=== PATIENT | female | born 1935 | race Caucasian/White ===

== ENCOUNTER 2018-06-14 11:50 | Observation (INO) | payer OTHER ==
--- NOTE | 2018-06-14 11:58 | PDOC ---
History of Present Illness - General History Source: Patient, Care Provider Exam Limitations: No Limitations - History of Present Illness Initial Comments: Pt, with PMH of DM, HTN, HLD, CADx2 stent placement, and CKD, presents after a fall to her R arm. Pt states she was walking in the kitchen when she tripped over her slippers and fell with her R arm in flexion against a chair. She was on the floor for 40 minutes before her son found her and called EMS. She has a home health travel ot who is present from 10am - 2pm only. She denies any headache, chest pain, or SOB before the fall. She denies any LOC or memory loss, and her aide states her behavior has been normal. She usually has baseline SOB, but can usually walk around the home without her home O2. She uses 3L O2 at home during rest. She has also had a productive cough x2 months, which has been treated with a short term of antibiotics but has not resolved. She denies any recent fevers/chills, chest pain, palpitations , urinary symptoms, nausea/vomiting, diarrhea, or increased leg swelling. 06/14/18 12:54 <Marilu Cadet - Last Filed: 06/14/18 21:31> <Doug Erickson - Last Filed: 06/17/18 15:12> - General Stated Complaint: FALL Time Seen by Provider: 06/14/18 11:58 Past History - Travel Traveled outside of the country in the last 30 days: No Close contact w/someone who was outside of country & ill: No - Past Medical History Anemia: Yes Cardiac Disorders: Yes Diabetes: Yes Dialysis: No HTN: Yes Hypercholesterolemia: Yes Psychiatric Problems: Yes (ANXIETY.) - Surgical History Cardiac Surgery: Yes (BYPASS, STENT.) - Immunization History Immunization Up to Date: Yes - Suicide/Smoking/Psychosocial Hx Smoking History: Former smoker ([id number] yrs, quit 30yrs ago) Have you smoked in the past 12 months: No Number of Cigarettes Smoked Daily: 26 If you are a former smoker, when did you quit?: 1984 Hx Alcohol Use: Yes Drug/Substance Use Hx: No Substance Use Type: None Hx Substance Use Treatment: No <Marilu Cadet - Last Filed: 06/14/18 21:31> <Doug Erickson - Last Filed: 06/17/18 15:12> - Past Medical History Allergies/Adverse Reactions: Allergies Allergy/AdvReac Type Severity Reaction Status Date / Time amoxicillin [Amoxicillin] AdvReac Verified 06/14/18 12:24 Home Medications: Ambulatory Orders Acetaminophen [Tylenol .Regular Strength -] 650 mg PO Q6H PRN #0 tablet Albuterol Sulfate Inhaler - [Ventolin HFA Inhaler -] 1 - 2 inh PO QID PRN Amlodipine Besylate 10 mg PO DAILY 06/14/18 Cholecalciferol (Vitamin D3) [Vitamin D -] 50,000 unit PO DAILY 06/14/18 Clopidogrel Bisulfate [Plavix] 75 mg PO DAILY 06/14/18 Famotidine [Pepcid] 40 mg PO DAILY 06/14/18 Fluticasone Propionate 9.9 ml NS ASDIR 06/14/18 Fluticasone/Salmeterol [Advair Hfa 115-21 Mcg Inhaler] 1 inh PO ASDIR 06/14/18 Furosemide [Lasix] 40 mg PO DAILY 06/14/18 Glipizide 5 mg PO DAILY 06/14/18 Linaclotide [Linzess] 145 mcg PO DAILY 06/14/18 Mesalamine 1.2 gm PO DAILY 06/14/18 Mesalamine [Lialda] 1.2 gm PO ASDIR 06/14/18 Metformin HCl 850 mg PO ASDIR 06/14/18 Metoprolol Succinate 50 mg PO DAILY 06/14/18 Rosuvastatin [Crestor -] 10 mg PO DAILY 06/14/18 Rivaroxaban [Xarelto -] 15 mg PO DAILY@1800 #30 tablet 06/16/18 oxyCODONE HCL [Roxicodone -] 5 mg PO Q4H PRN #30 tablet MDD 30mg 06/16/18 Review of Systems - Review of Systems Able to Perform ROS?: Yes Is the patient limited Taiwanese proficient: No Constitutional: Yes: Weight Stable. No: Chills, Diaphoresis, Fever, Night Sweats HEENTM: No: Recent change in vision, Double Vision, Hearing Loss, Difficulty Swallowing Respiratory: Yes: Cough, Shortness of Breath, SOB with Exertion, Productive cough. No: Orthopnea, SOB at Rest, Hemoptysis Cardiac (ROS): No: Chest Pain, Edema, Irregular Heart Rate, Lightheadedness, Palpitations, Syncope, Chest Tightness ABD/GI: No: Constipated, Diarrhea, Nausea, Poor Appetite, Poor Fluid Intake, Vomiting : No: Burning, Dysuria, Frequency, Hematuria, Incontinence, Pain, Urgency Musculoskeletal: Yes: Joint Pain (R arm pain since fall). No: Back Pain Integumentary: No: Bruising, Rash Neurological: No: Headache, Numbness, Unsteady Gait, Dizziness Psychiatric: No: Change in Appetite Endocrine: No: Increased Urine, Change in Weight Hematologic/Lymphatic: No: Anemia, Blood Clots All Other Systems: Reviewed and Negative <HelioMarilu - Last Filed: 06/14/18 21:31> *Physical Exam - Physical Exam General Appearance: Yes: Nourished, Appropriately Dressed, Mild Distress (O2 94% , SOB improved with 3L), Obese HEENT: positive: EOMI, Normal ENT Inspection, Normal Voice, Symmetrical, Pharynx Normal, Hearing Decreased Neck: positive: Trachea midline, Normal Thyroid, Supple. negative: Tender, Rigid, Decreased range of motion, Tender midline Respiratory/Chest: positive: Lungs Clear, Respiratory Distress (94%, SOB, improved with O2), Decreased Breath Sounds (b/l anterior and posterior). negative: Chest Tender, Crackles, Wheezing, Dullness Cardiovascular: positive: Regular Rhythm, Regular Rate, S1, S2, Murmur ( systolic murmur, loudest over aortic area). negative: Edema, JVD Vascular Pulses: Dorsalis-Pedis (R): 4+, Doralis-Pedis (L): 4+ Gastrointestinal/Abdominal: positive: Normal Bowel Sounds, Soft. negative: Tender, Flat (protuberant abdomen), Organomegaly, Pulsatile Mass Lymphatic: negative: Adenopathy, Tenderness Musculoskeletal: positive: Decreased Range of Motion (decreased ROM, flexion of R arm and R shoulder. Tenderness to palpation over R humerus). negative: CVA Tenderness Extremity: positive: Normal Capillary Refill, Normal Inspection, Normal Range of Motion (decreased ROM, flexion of R arm and R shoulder. Tenderness to palpation over R humerus), Pelvis Stable. negative: Tender Integumentary: positive: Normal Color, Dry, Warm. 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 Pt fell from standing.) - Electrocardiogram EKG: Normal - Age Age: >/= 65 - Risk Factors Risk Factors Heart Score: Yes Hx Hypercholesterolemia, Yes Hx Hypertension, Yes Hx Diabetes, Yes Hx Obesity Based on the list above the patient has:: >/=3 risk factors or Hx atherosclerotic disease - Troponin Troponin: </= normal limit - Score Heart Score - Total: 4 (Will place tele/obs ) - ECG Intrepretation Rhythm: Irregularly Irregular (A-fib (new-onset per Dr. Carrington, pts PCP).) - Medford Medford: Normal - P and SC Prominent R with upright T in V1 (true posterior MA): No Delta Wave(s) Present: No WPW: No - QRS Poor R Wave Progression: No Q Wave Present: No - ST and T Early Repolarization: No Non Specific ST-T Wave changes: No Flattened T Waves: No Prolonged Q-T Interval: No - ECG Impressions Normal ECG: No Non-specific ST Elevation: No Ischemic Changes: No Bradycardia: No Torsades wes Pointes: No WPW: No <Marilu Cadet - Last Filed: 06/14/18 21:31> ED Treatment Course - LABORATORY CBC & Chemistry Diagram: 06/14/18 13:19 06/14/18 15:29 <Marilu Cadet - Last Filed: 06/14/18 21:31> - LABORATORY CBC & Chemistry Diagram: 06/16/18 05:30 06/16/18 05:30 - ADDITIONAL ORDERS Additional order review: 06/14/18 13:14 Urine Culture - Final Urine - Urine Clean Catch NO GROWTH OBTAINED 06/14/18 13:19 RBC 3.54 L MCV 94.4 MCHC 32.3 RDW 17.2 H MPV 8.2 Neutrophils % 72.0 Lymphocytes % 8.8 D Monocytes % 5.6 Eosinophils % 13.3 H Basophils % 0.3 - RADIOLOGY Radiology Studies Ordered: Category Date Time Status HEAD CT WITHOUT CONTRAST [CT] Stat CT Scan 06/14/18 12:35 Completed CXRPORT [CHEST X-RAY PORTABLE*] [RAD] Stat Radiology 06/14/18 12:35 Completed HUMERUS-RIGHT [RAD] Stat Radiology 06/14/18 12:44 Completed SHOULDER-RIGHT [RAD] Stat Radiology 06/14/18 12:44 Completed - Medications Given in the ED: ED Medications Discontinued Medications Generic Name Dose Route Start Last Admin Trade Name Freq PRN Reason Stop Dose Admin Acetaminophen 1,000 mg 06/14/18 13:23 06/14/18 14:42 Ofirmev Injection - IVPB 06/14/18 13:24 1,000 mg ONCE ONE Administration Acetaminophen 650 mg 06/14/18 16:57 06/15/18 16:39 Tylenol - PO 650 mg Q6H PRN Administration FEVER Amlodipine Besylate 10 mg 06/15/18 10:00 06/16/18 09:54 Norvasc - PO 10 mg DAILY YOAN Administration Clopidogrel Bisulfate 75 mg 06/15/18 10:00 06/16/18 09:53 Plavix - PO 75 mg DAILY YOAN Administration Docusate Sodium 100 mg 06/14/18 22:00 06/16/18 09:53 Colace - PO 100 mg BID YOAN Administration Glipizide 5 mg 06/15/18 07:00 06/16/18 06:12 Glucotrol - PO 5 mg DAILY@0700 YOAN Administration Levofloxacin 500 mg in 100 mls @ 100 mls/hr 06/14/18 16:16 06/14/18 16:50 Levaquin 500 Mg Premixed Ivpb - IVPB 06/14/18 17:15 100 mls/hr ONCE ONE Administration Protocol Sodium Chloride 1,000 mls @ 50 mls/hr 06/14/18 17:00 06/15/18 17:22 Normal Saline - IV 06/15/18 17:01 Not Given ASDIR YOAN Insulin Aspart 1 vial 06/14/18 22:00 06/16/18 11:38 Novolog Vial Sliding Scale - SQ Not Given ACHS [facility] Protocol Metoprolol Succinate 50 mg 06/15/18 10:00 06/16/18 09:53 Toprol Xl - PO 50 mg DAILY YOAN Administration Morphine Sulfate 4 mg 06/14/18 14:56 06/14/18 15:09 Morphine Injection - IVPUSH 06/14/18 14:57 Not Given ONCE ONE Morphine Sulfate 2 mg 06/14/18 15:08 06/14/18 15:08 Morphine Injection - IVPUSH 06/14/18 15:09 2 mg ONCE ONE Administration Oxycodone HCl 5 mg 06/14/18 16:59 06/16/18 12:02 Roxicodone - PO 5 mg Q4H PRN Administration PAIN LEVEL 6-10 Polyethylene Glycol 17 gm 06/15/18 10:00 06/16/18 10:36 Miralax (For Daily Use) - PO Not Given DAILY [facility] Rivaroxaban 15 mg 06/16/18 11:45 06/16/18 12:03 Xarelto - PO 15 mg DAILY@1800 [facility] Administration Rosuvastatin Calcium 10 mg 06/15/18 10:00 06/16/18 09:54 Crestor - PO 10 mg DAILY [facility] Administration Sodium Chloride 1,000 ml 06/14/18 15:07 06/14/18 15:42 Normal Saline - IV 06/14/18 15:08 1,000 ml ONCE ONE Administration Sodium Polystyrene Sulfonate 15 gm 06/15/18 09:45 06/15/18 11:29 Kayexalate - PO 06/15/18 09:46 15 gm ONCE ONE Administration Sodium Polystyrene Sulfonate 30 gm 06/16/18 11:45 06/16/18 12:01 Kayexalate - PO 06/16/18 11:46 30 gm ONCE ONE Administration Valsartan 320 mg 06/15/18 10:00 06/16/18 09:53 Diovan - PO 320 mg DAILY [facility] Administration Zolpidem Tartrate 5 mg 06/15/18 00:19 06/15/18 00:27 Ambien - PO 06/15/18 00:20 5 mg ONCE ONE Administration <Doug Erickson - Last Filed: 06/17/18 15:12> Medical Decision Making - Medical Decision Making Pt seen at bedside. She is placed on 3L O2, SOB improving. R arm is in sling. Ordered CBC, CMP, trop, CPK, UA. Ordered chest x-ray and non-contrast head CT. Pt complained of unresolved productive cough x2 months. Ordering head CT due to fall, age, and risk factors (aspirin & plavix use). 06/14/18 12:52 Provided ofirmev for pain. Placed IV and pt was taken to radiology for imaging. 06/14/18 13:25 ECG shows new a-fib (last ECG on our record was from 2014). Speaking with PCP, Dr. Carrington, who states last ECG from November shows no A-fib, normal sinus rhythm. 06/14/18 14:04 CMP hemolyzed (K6.4, no ECG changes). will repeat chemistry and start 1L fluids (Cr today 1.7, higher than baseline). Pt comfortable. Awaiting new chemistry labs for admission. 06/14/18 15:[address] impression read as "acute territorial ischemic changes," although description of CT indicated that changes were chronic. Neuro exam was normal, and pt shows no behavior changes from baseline. Dr. Erickson calling CT to correct read. R arm and shoulder x-ray showed comminuted fracture of the R humerus. Pt placed in sling and can see orthopedics non-emergently. 06/14/18 15:39 Ordered 500 mg Levofloxacin (pt has penicillin allergy) for UTI. Paging hospitalist for admission to observation. 06/14/18 16:[address] Fortune (admits for Dr. Carrington) who would like pt admitted to Tele/ Observation. Will place admission order and will place pt on monitor. Placed consult for Dr. Guadalupe in orthopedics. Pt resting comfortably. 06/14/18 16:40 <Marilu Cadet - Last Filed: 06/14/18 21:31> *DC/Admit/Observation/Transfer - Discharge Dispostion Decision to Admit order: Yes <Marilu Cadet - Last Filed: 06/14/18 21:31> <Doug Erickson - Last Filed: 06/17/18 15:12> Diagnosis at time of Disposition: New onset atrial fibrillation CAD (coronary artery disease) Qualifiers: Coronary Disease-Associated Artery/Lesion type: unspecified vessel or lesion type [place] vs. transplanted heart: [place] heart Associated angina: without angina Qualified Code(s): I25.10 - Atherosclerotic heart disease of [place] coronary artery without angina pectoris Fall from standing Qualifiers: Encounter type: initial encounter Qualified Code(s): W19.XXXA - Unspecified fall, initial encounter Fracture, humerus closed Qualifiers: Encounter type: initial encounter Humerus Location: proximal Fracture morphology: other fracture Fracture alignment: displaced Laterality: right Qualified Code(s): S42.291A - Other displaced fracture of upper end of right humerus, initial encounter for closed fracture - Discharge Dispostion Disposition: VNS/HOME HEALTH CARE Condition at time of disposition: Improved
--- NOTE | 2018-06-14 12:23 | PDOC ---
Attending Attestation - HPI HPI: 06/14/18 12:55 The patient is a 83 year old female, with a significant past medical history of colitis, diabetes, hypertension, hypercholesterolemia, cardiac stent x2 (on aspirin and Plavix), on 3L O2 at home, who presents to the emergency department with right arm pain after mechanical fall today. She states tripped on her slippers in her kitchen when she landed onto her right arm. She states she was on the floor for 40 minutes before her son found her and called EMS. She denies hitting her head. She denies LOC. She has a home health aide who is present from 10am - 2pm who states the patient is acting at her baseline today. The patient denies chest pain, shortness of breath, headache and dizziness. The patient denies fever, chills, nausea, vomit, diarrhea and constipation. The patient denies dysuria, frequency, urgency and hematuria. Allergies: amoxicillin PCP - Dr. Smiley - Physicial Exam PE: 06/14/18 13:07 ROS: A complete review of 10 out of 10 review of systems is taken and is negative apart from what is previously mentioned below and in the HPI. Vitals: Triage vital signs reviewed General Appearance: No acute distress, well nourished, well developed Head: Atraumatic Eyes: Pupils equal reactive round, extraocular movement intact Neck: Supple; No nuchal rigidity Chest Wall: Nontender Cardiac: (+) systolic ejection murmu. Regular rate and rhythm, no rubs, no gallops Lungs: Clear to auscultation bilateral, good air movement bilaterally Abdomen: Soft, nondistended, normal bowel sounds, nontender to palpation Genitourinary: Rectal: Exam deferred Extremities: (+) limited range of motion to right upper extremity secondary to pain. tender to palpation of the right shoulder. no cyanosis, clubbing, or edema Skin: Warm and dry, no rashes or lesions, no rash, no petechiae Neuro: AOX3; Cranial Nerves 2-12 grossly intact, Strength intact to all extremities, Sensation intact to all extremities, neurovascularly intact distally. Psych: Normal mood, normal affect - Medical Decision Making 06/14/18 12:55 Documentation prepared by Chante High, acting as medical record retrieval specialist for Doug Erickson MD 06/14/18 13:08 83 year old female, with a significant past medical history of colitis, diabetes , hypertension, hypercholesterolemia, cardiac stent x2 (on aspirin and Plavix) presents to the emergency department with right arm and shoulder pain after mechanical fall today. Plan: EKG, X Ray, labs, Head CT 06/14/18 13:08 Documentation prepared by Chante High, acting as medical record retrieval specialist for Doug Erickson MD <Chante High - Last Filed: 06/14/18 16:05> - Resident Resident Name: Marilu Cadet - ED Attending Attestation I have performed the following: I have examined & evaluated the patient, The case was reviewed & discussed with the resident, I agree w/resident's findings & plan, Exceptions are as noted - Medical Decision Making Humeral head fracture on x-ray of shoulder. New-onset A. fib unclear how long patient has been in A. fib Head CT with no acute findings Possible UTI we will admit to medicine for further management of UTI fall and new onset afib. <Doug Erickson - Last Filed: 06/14/18 18:32> Heart Score/ECG Review - ECG Impressions Comment:: 06/14/18 18:32 EKG performed at 1259. Demonstrates new A. fib when compared to previous EKG [address] elevations or T-wave inversions. Interpreted by me. <Doug Erickson - Last Filed: 06/14/18 18:32>
[2018-06-14] MEDS ORDERED: ACETAMINOPHEN 1000 MG/100 ML VIAL (NON FORMULARY) IVPB ONE (13:23)
[2018-06-14] MEDS ORDERED: ACETAMINOPHEN INJECTION 100 ML IVPB ONE (13:43)
[2018-06-14 13:47] LABS: BASO % 0.3 % (0-2.0); EOS % 13.3 % (0-4.5); HEMATOCRIT 33.4 % (32.4-45.2); HEMOGLOBIN 10.8 GM/dL (10.7-15.3); LYMPH % 8.8 % (8-40); MCH 30.5 pg (25.7-33.7); MCHC 32.3 g/dl (32.0-36.0); MEAN CELL VOLUME 94.4 fl (80-96); MEAN PLT VOLUME 8.2 fl (7.5-11.1); MONO % 5.6 % (3.8-10.2); PLATELET COUNT 163 K/MM3 (134-434); RBC 3.54 M/mm3 (3.60-5.2); RDW 17.2 % (11.6-15.6); WHITE BLOOD COUNT 8.1 K/mm3 (4.0-10.0)
[2018-06-14 13:49] LABS: URINE APPEARANCE CLEAR; URINE BILIRUBIN NEGATIVE (<2.0 mg/dL); URINE COLOR YELLOW; URINE GLUCOSE (UA) 1+ (NEGATIVE); URINE KETONE NEGATIVE (NEGATIVE); URINE NITRITE NEGATIVE (NEGATIVE); URINE UROBILINOGEN NEGATIVE mg/dL (0.2-1.0)
[2018-06-14 13:54] LABS: URINE LEUK ESTERASE 2+ (NEGATIVE); URINE PROTEIN 2+ (NEGATIVE)
[2018-06-14 14:04] LABS: EPI CELLS MODERATE /HPF (FEW); URINE HYALINE CAST 84 /lpf; URINE MUCUS RARE
[2018-06-14 14:13] LABS: ALBUMIN 3.3 g/dl (3.4-5.0); ANION GAP 8 (8-16); BILIRUBIN,TOTAL 0.6 mg/dL (0.2-1.0); BLOOD UREA NITROGEN 39 mg/dL (7-18); CALCIUM 9.1 mg/dL (8.5-10.1); CHLORIDE 114 mmol/L (98-107); CO2 18 mmol/L (21-32); CREATININE 1.7 mg/dL (0.55-1.02); GLUCOSE,RANDOM 256 mg/dL (74-106); SODIUM 140 mmol/L (136-145); TOT PROT 7.2 g/dl (6.4-8.2)
[2018-06-14 14:14] LABS: ALK PHOS 74 U/L (45-117)
[2018-06-14 14:22] LABS: SGOT/AST 32 U/L (15-37)
[2018-06-14 14:23] LABS: SGPT/ALT 32 U/L (12-78)
[2018-06-14 14:26] LABS: POTASSIUM 6.4 mmol/L (3.5-5.1)
[2018-06-14 14:30] LABS: INR 1.06 (0.82-1.09)
[2018-06-14] MEDS ORDERED: MORPHINE SULFATE 2 MG/ML VIAL ONE (14:55)
[2018-06-14] MEDS ORDERED: morphine CARPU-JECT 4 MG/1 ML DISP.SYRIN IVPUSH ONE ×2 (14:56→15:08)
--- NOTE | 2018-06-14 14:58 | EKG ---
Test Reason : Blood Pressure : / mmHG Vent. Rate : 079 BPM Atrial Rate : 085 BPM P-R Int : 000 ms QRS Dur : 086 ms QT Int : 400 ms P-R-T Axes : 000 018 020 degrees QTc Int : 458 ms ATRIAL FIBRILLATION ABNORMAL ECG WHEN COMPARED WITH ECG OF 09-JUN-2015 04:29, ATRIAL FIBRILLATION HAS REPLACED SINUS RHYTHM NONSPECIFIC T WAVE ABNORMALITY NOW EVIDENT IN INFERIOR LEADS Confirmed by Wilber Swartz MD ([id number]) on 06/14/2018 2:57:51 PM Referred By: Confirmed By:Wilber Swartz MD
[2018-06-14] MEDS ORDERED: SODIUM CHLORIDE 0.9% 1000 ML INFUS.BAG IV ONE (15:07)
[2018-06-14 15:41] LABS: ANION GAP 10 (8-16); BLOOD UREA NITROGEN 37 mg/dL (7-18); CALCIUM 9.1 mg/dL (8.5-10.1); CHLORIDE 112 mmol/L (98-107); CO2 18 mmol/L (21-32); CREATININE 1.6 mg/dL (0.55-1.02); GLUCOSE,RANDOM 276 mg/dL (74-106); POTASSIUM 5.4 mmol/L (3.5-5.1); SODIUM 140 mmol/L (136-145)
[2018-06-14 16:31] LABS: ALBUMIN 3.3 g/dl (3.4-5.0); ALK PHOS 79 U/L (45-117); ANION GAP 11 (8-16); BILIRUBIN,TOTAL 0.5 mg/dL (0.2-1.0); BLOOD UREA NITROGEN 38 mg/dL (7-18); CALCIUM 9.1 mg/dL (8.5-10.1); CHLORIDE 113 mmol/L (98-107); CO2 17 mmol/L (21-32); CREATININE 1.7 mg/dL (0.55-1.02); GLUCOSE,RANDOM 273 mg/dL (74-106); POTASSIUM 5.4 mmol/L (3.5-5.1); SGOT/AST 22 U/L (15-37); SGPT/ALT 19 U/L (12-78); SODIUM 141 mmol/L (136-145)
[2018-06-14] MEDS ORDERED: ACETAMINOPHEN 325 MG TABLET (FP) PO PRN (16:59)
--- NOTE | 2018-06-14 17:09 | HP ---
Admitting History and Physical - Primary Care Physician PCP: Shoaib Carrington - Admission Chief Complaint: I fell History of Present Illness: Ms Ashford is a pleasant 83 year old female who came in after sustaining a mechanical fall. She says she was walking in her kitchen and when she turned around to make a phone call she fell and hit her right side. She says that she was not lightheaded or dizzy prior to the fall. She did not pass out or hit her head. She did feel pain in her R arm where she hit it. She was unable to get up and waited for her aid to come who brought her into the hospital. She says she is feeling fine now after receiving pain medications. She says otherwise she is in her normal state of health. She says that for the past few months she gets lightheaded when she goes out into the sun so she has been staying inside. She has a history of shortness of breath requiring oxygen at home and this is unchanged. She denies fevers, chills, chest pain, coughing, wheezing, abdominal pain, nausea, vomiting, diarrhea, constipation, pain or difficulty urinating, frequency urinating, or swelling of the legs. History Source: Patient Limitations to Obtaining History: No Limitations - Past Medical History Cardiovascular: Yes: CAD, HTN, Hyperlipdemia Pulmonary: Yes: Pneumonia Gastrointestinal: Yes: Other (colitis) Infectious Disease: Yes: Other (shingles) Endocrine: Yes: Diabetes Mellitus - Past Surgical History Past Surgical History: Yes: CABG (x2 vessel 20yrs ago, cardiac stents x2), C- Section, Hysterectomy - Smoking History Smoking history: Former smoker ([id number] yrs, quit 30yrs ago) Have you smoked in the past 12 months: No Aproximately how many cigarettes per day: 26 If you are a former smoker, when did you quit?: 1984 - Alcohol/Substance Use Hx Alcohol Use: Yes History of Substance Use: reports: None - Social History Usual Living Arrangement: Yes: Alone ADL: Support Services History of Recent Travel: No Home Medications - Allergies Allergies/Adverse Reactions: Allergies Allergy/AdvReac Type Severity Reaction Status Date / Time amoxicillin [Amoxicillin] AdvReac Verified 06/14/18 12:24 - Home Medications Home Medications: Ambulatory Orders Acetaminophen [Tylenol .Regular Strength -] 650 mg PO Q6H PRN #0 tablet Albuterol Sulfate Inhaler - [Ventolin Hfa Inhaler -] 1 - 2 inh PO QID PRN Amlodipine Besylate 10 mg PO DAILY 06/14/18 Cholecalciferol (Vitamin D3) [Vitamin D3 -] 50,000 unit PO DAILY 06/14/18 Clopidogrel Bisulfate [Plavix] 75 mg PO DAILY 06/14/18 Famotidine [Pepcid] 40 mg PO DAILY 06/14/18 Fluticasone Propionate 9.9 ml NS ASDIR 06/14/18 Fluticasone/Salmeterol [Advair Hfa 115-21 Mcg Inhaler] 1 inh PO ASDIR 06/14/18 Furosemide [Lasix] 40 mg PO DAILY 06/14/18 Glipizide 5 mg PO DAILY 06/14/18 Linaclotide [Linzess] 145 mcg PO DAILY 06/14/18 Mesalamine 1.2 gm PO DAILY 06/14/18 Mesalamine [Lialda] 1.2 gm PO ASDIR 06/14/18 Metformin HCl 850 mg PO ASDIR 06/14/18 Metoprolol Succinate 50 mg PO DAILY 06/14/18 Potassium Chloride 20 meq PO DAILY 06/14/18 Rosuvastatin [Crestor -] 10 mg PO DAILY 06/14/18 Triamcinolone Acetonide 1 applic TP DAILY 06/14/18 Valsartan 320 mg PO DAILY 06/14/18 Zolpidem Tartrate [Ambien] 5 mg PO HS PRN 06/14/18 Family Disease History - Family Disease History Family Disease History: CA: Father (lung cancer), Mother (stomach cancer) Review of Systems Findings/Remarks: Full review of systems obtained, as per HPI and otherwise negative. Physical Examination Vital Signs: Vital Signs Temperature 36.8 C 06/14/18 15:52 Pulse Rate 80 06/14/18 15:52 Respiratory Rate 24 06/14/18 15:52 Blood Pressure 139/63 06/14/18 15:52 O2 Sat by Pulse Oximetry (%) 91 L 06/14/18 15:52 Constitutional: Yes: No Distress, Calm, Obese Eyes: Yes: Conjunctiva Clear, EOM Intact, PERRL HENT: Yes: Atraumatic, Normocephalic Cardiovascular: Yes: Pulse Irregular, Murmur (3/6 holosystolic ejection murmur) . No: Tachycardia, Gallop, Rub Respiratory: Yes: Regular, CTA Bilaterally, On Nasal O2. No: Rales, Rhonchi, Wheezes Gastrointestinal: Yes: Normal Bowel Sounds, Soft. No: Distention, Tenderness Extremities: Yes: Other (R arm in splint) Edema: No Labs: CBC, BMP 06/14/18 13:19 06/14/18 15:29 Imaging - Results Chest X-ray: Report Reviewed, Image Reviewed EKG: Report Reviewed, Image Reviewed Problem List - Problems (1) Fall from standing Assessment/Plan: -mechanical fall -no lightheadedness or syncope -admit under observation -PT consult -fall risk precautions Code(s): W19.XXXA - UNSPECIFIED FALL, INITIAL ENCOUNTER Qualifiers: Encounter type: initial encounter Qualified Code(s): W19.XXXA - Unspecified fall, initial encounter (2) New onset atrial fibrillation Assessment/Plan: -unclear if new or old, but Dr Carrington not aware -? paroxysmal -admit for telemetry observation -patient seen by Dr Tripathi in the past, will consult -check TSH and free T4 -ECHO -on toprol xl and rate controlled -CHADS-VASc score of 5, however with fall -will monitor as probably would benefit from anticoagulation but may be high fall risk -? if cause of "lightheadedness" when going at in sun -also check orthostatics and gentle hydration Code(s): I48.91 - UNSPECIFIED ATRIAL FIBRILLATION (3) Fracture, humerus closed Assessment/Plan: -ortho consult -will make npo in case needs surgery this hospital stay -cardiology to evaluate as well for cardiac clearance Code(s): S42.309A - UNSP FRACTURE OF SHAFT OF HUMERUS, UNSP ARM, INIT Qualifiers: Encounter type: initial encounter Humerus Location: proximal Fracture morphology: other fracture Fracture alignment: displaced Laterality: right Qualified Code(s): S42.291A - Other displaced fracture of upper end of right humerus, initial encounter for closed fracture (4) Diabetes Assessment/Plan: -hold metformin secondary to creatinine -continue glipizide -diabetic diet -FSBS and SSI qac and qhs Code(s): E11.9 - TYPE 2 DIABETES MELLITUS WITHOUT COMPLICATIONS (5) COPD (chronic obstructive pulmonary disease) Assessment/Plan: -continue advair and oxygen Code(s): J44.9 - CHRONIC OBSTRUCTIVE PULMONARY DISEASE, UNSPECIFIED (6) Chronic respiratory failure with hypoxia Assessment/Plan: -continue oxygen Code(s): J96.11 - CHRONIC RESPIRATORY FAILURE WITH HYPOXIA (7) CAD (coronary artery disease) Assessment/Plan: -quiescent -continue home regimen Code(s): I25.10 - ATHSCL HEART DISEASE OF [place] CORONARY ARTERY W/O ANG PCTRS Qualifiers: Coronary Disease-Associated Artery/Lesion type: unspecified vessel or lesion type [place] vs. transplanted heart: [place] heart Associated angina: without angina Qualified Code(s): I25.10 - Atherosclerotic heart disease of [place] coronary artery without angina pectoris (8) HTN (hypertension) Assessment/Plan: -well controlled -continue home regimen Code(s): I10 - ESSENTIAL (PRIMARY) HYPERTENSION (9) HLD (hyperlipidemia) Assessment/Plan: -continue statin Code(s): E78.5 - HYPERLIPIDEMIA, UNSPECIFIED (10) Murmur, cardiac Assessment/Plan: -patient said chronic and daughter also has -unclear if had recent ECHO -cardiology consult -will order ECHO to evaluate Code(s): R01.1 - CARDIAC MURMUR, UNSPECIFIED (11) Hyperkalemia Assessment/Plan: -gentle hydration -stop potassium supplementation -recheck in am -monitor on telemetry -consider kayexalate if remains elevated Code(s): E87.5 - HYPERKALEMIA (12) CKD (chronic kidney disease) Assessment/Plan: -stable Code(s): N18.9 - CHRONIC KIDNEY DISEASE, UNSPECIFIED
[2018-06-14] MEDS: SODIUM CHLORIDE 1,000 ML IV SCH (18:23)
[2018-06-14] MEDS: DOCUSATE SODIUM 100 MG CAPSULE (FP) PO SCH (21:23)
[2018-06-14] MEDS: oxyCODONE HCL 5 MG TABLET PO PRN (21:24)
[2018-06-14] MEDS: ACETAMINOPHEN 325 MG TABLET (FP) PO PRN (21:26)
[2018-06-14] MEDS: INSULIN SLIDING SCALE (NOVOLOG) 1 VIAL SQ SCH (21:30)
[2018-06-14] MEDS ORDERED: PATIENT'S OWN MEDICATION (NON-FORMULARY) (Fluticasone/Salmeterol [Advair Hfa 115-21 Mcg In PO SCH (22:00)
--- NOTE | 2018-06-14 22:12 | CON.CARD ---
Consult Consult Specialty:: Cardiology Reason for Consultation:: af - History of Present Illness History of Present Illness: Ms Ashford is a pleasant 83 year old female who came in after sustaining a mechanical fall. She says she was walking in her kitchen and when she turned around to make a phone call she fell and hit her right side. She says that she was not lightheaded or dizzy prior to the fall. She did not pass out or hit her head. She did feel pain in her R arm where she hit it. She was unable to get up and waited for her aid to come who brought her into the hospital. She says she is feeling fine now after receiving pain medications. She says otherwise she is in her normal state of health. She says that for the past few months she gets lightheaded when she goes out into the sun so she has been staying inside. She has a history of shortness of breath requiring oxygen at home and this is unchanged. She denies fevers, chills, chest pain, coughing, wheezing, abdominal pain, nausea, vomiting, diarrhea, constipation, pain or difficulty urinating, frequency urinating, or swelling of the legs. 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 Bloom PCI Ramus 05/2014 Dr. Bloom s/p 2 coronary artery stents ( 2009) s/p right ICA endarterectomy Medical History Reviewed Condition Date Treating Physician Comments COPD DM HTN obesity s/p 2 coronary artery stents, in 2009 s/p [place]-->CABG in 1995 colitis iron-deficiency anemia - History Source History Provided By: Patient, Medical Record - Past Medical History Cardio/Vascular: Yes: CAD, CHF, HTN, Hyperlipdemia Pulmonary: Yes: Pneumonia Gastrointestinal: Yes: Other (colitis) ...: No Infectious Disease: Yes: Other (shingles) Endocrine: Yes: Diabetes Mellitus - Past Surgical History Past Surgical History: Yes: CABG (x2 vessel 20yrs ago, cardiac stents x2), C- Section, Hysterectomy - Alcohol/Substance Use Hx Alcohol Use: Yes History of Substance Use: reports: None - Smoking History Smoking history: Former smoker ([id number] yrs, quit 30yrs ago) Have you smoked in the past 12 months: No Aproximately how many cigarettes per day: 26 If you are a former smoker, when did you quit?: 1984 - Social History ADL: Support Services History of Recent Travel: No Home Medications - Allergies Allergies/Adverse Reactions: Allergies Allergy/AdvReac Type Severity Reaction Status Date / Time amoxicillin [Amoxicillin] AdvReac Verified 06/14/18 12:24 - Home Medications Home Medications: Ambulatory Orders Acetaminophen [Tylenol .Regular Strength -] 650 mg PO Q6H PRN #0 tablet Albuterol Sulfate Inhaler - [Ventolin Hfa Inhaler -] 1 - 2 inh PO QID PRN Amlodipine Besylate 10 mg PO DAILY 06/14/18 Cholecalciferol (Vitamin D3) [Vitamin D3 -] 50,000 unit PO DAILY 06/14/18 Clopidogrel Bisulfate [Plavix] 75 mg PO DAILY 06/14/18 Famotidine [Pepcid] 40 mg PO DAILY 06/14/18 Fluticasone Propionate 9.9 ml NS ASDIR 06/14/18 Fluticasone/Salmeterol [Advair Hfa 115-21 Mcg Inhaler] 1 inh PO ASDIR 06/14/18 Furosemide [Lasix] 40 mg PO DAILY 06/14/18 Glipizide 5 mg PO DAILY 06/14/18 Linaclotide [Linzess] 145 mcg PO DAILY 06/14/18 Mesalamine 1.2 gm PO DAILY 06/14/18 Mesalamine [Lialda] 1.2 gm PO ASDIR 06/14/18 Metformin HCl 850 mg PO ASDIR 06/14/18 Metoprolol Succinate 50 mg PO DAILY 06/14/18 Potassium Chloride 20 meq PO DAILY 06/14/18 Rosuvastatin [Crestor -] 10 mg PO DAILY 06/14/18 Triamcinolone Acetonide 1 applic TP DAILY 06/14/18 Valsartan 320 mg PO DAILY 06/14/18 Zolpidem Tartrate [Ambien] 5 mg PO HS PRN 06/14/18 Family Disease History - Family Disease History Family Disease History: CA: Father (lung cancer), Mother (stomach cancer) Review of Systems - Review of Systems Constitutional: reports: No Symptoms Eyes: reports: No Symptoms HENT: reports: No Symptoms Neck: reports: No Symptoms Cardiovascular: reports: No Symptoms Respiratory: reports: No Symptoms Gastrointestinal: reports: No Symptoms Genitourinary: reports: No Symptoms Breasts: reports: No Symptoms Reported Musculoskeletal: reports: No Symptoms Integumentary: reports: No Symptoms Neurological: reports: No Symptoms Endocrine: reports: No Symptoms Hematology/Lymphatic: reports: No Symptoms Psychiatric: reports: No Symptoms Vital Signs: Vital Signs Temperature 98.0 F 06/14/18 20:31 Pulse Rate 90 06/14/18 20:31 Respiratory Rate 20 06/14/18 20:31 Blood Pressure 155/59 06/14/18 20:31 O2 Sat by Pulse Oximetry (%) 98 06/14/18 20:31 Constitutional: Yes: Well Nourished, No Distress, Calm Eyes: Yes: WNL, Conjunctiva Clear, EOM Intact HENT: Yes: WNL, Atraumatic, Normocephalic Neck: Yes: WNL, Supple, Trachea Midline Respiratory: Yes: WNL, Regular, CTA Bilaterally Gastrointestinal: Yes: WNL, Normal Bowel Sounds Renal/: Yes: WNL Cardiovascular: Yes: Pulse Irregular Heart Sounds: Yes: S1, S2 Murmur: Yes: Systolic Murmur, Grade 1 Musculoskeletal: Yes: WNL Extremities: Yes: WNL Integumentary: Yes: WNL Neurological: Yes: WNL, Alert, Oriented ...Motor Strength: WNL Psychiatric: Yes: WNL, Alert, Oriented - Other Data Labs, Other Data: CBC, BMP 06/14/18 13:19 06/14/18 15:29 INR, PTT INR 1.06 (0.82-1.09) 06/14/18 13:42 Troponin, BNP 06/14/18 13:14 Troponin I < 0.02 Troponin, BNP 06/14/18 13:14 Troponin I < 0.02 Imaging - Results Chest X-ray: Image Reviewed (af rep abn) EKG: Image Reviewed (af rep abn) Problem List - Problems (1) CAD (coronary artery disease) Code(s): I25.10 - ATHSCL HEART DISEASE OF [place] CORONARY ARTERY W/O ANG PCTRS Qualifiers: Coronary Disease-Associated Artery/Lesion type: unspecified vessel or lesion type [place] vs. transplanted heart: [place] heart Associated angina: without angina Qualified Code(s): I25.10 - Atherosclerotic heart disease of [place] coronary artery without angina pectoris (2) CKD (chronic kidney disease) Code(s): N18.9 - CHRONIC KIDNEY DISEASE, UNSPECIFIED (3) COPD (chronic obstructive pulmonary disease) Code(s): J44.9 - CHRONIC OBSTRUCTIVE PULMONARY DISEASE, UNSPECIFIED (4) Chronic respiratory failure with hypoxia Code(s): J96.11 - CHRONIC RESPIRATORY FAILURE WITH HYPOXIA (5) Fall from standing Code(s): W19.XXXA - UNSPECIFIED FALL, INITIAL ENCOUNTER Qualifiers: Encounter type: initial encounter Qualified Code(s): W19.XXXA - Unspecified fall, initial encounter (6) Fracture, humerus closed Code(s): S42.309A - UNSP FRACTURE OF SHAFT OF HUMERUS, UNSP ARM, INIT Qualifiers: Encounter type: initial encounter Humerus Location: proximal Fracture morphology: other fracture Fracture alignment: displaced Laterality: right Qualified Code(s): S42.291A - Other displaced fracture of upper end of right humerus, initial encounter for closed fracture (7) HLD (hyperlipidemia) Code(s): E78.5 - HYPERLIPIDEMIA, UNSPECIFIED (8) HTN (hypertension) Code(s): I10 - ESSENTIAL (PRIMARY) HYPERTENSION (9) Hyperkalemia Code(s): E87.5 - HYPERKALEMIA (10) Murmur, cardiac Code(s): R01.1 - CARDIAC MURMUR, UNSPECIFIED (11) New onset atrial fibrillation Code(s): I48.91 - UNSPECIFIED ATRIAL FIBRILLATION (12) Chest pain Code(s): R07.9 - CHEST PAIN, UNSPECIFIED (13) Diabetes Code(s): E11.9 - TYPE 2 DIABETES MELLITUS WITHOUT COMPLICATIONS (14) Hx of CABG Code(s): Z95.1 - PRESENCE OF AORTOCORONARY BYPASS GRAFT (15) Hypoglycemia associated with type 2 diabetes mellitus Code(s): E11.649 - TYPE 2 DIABETES MELLITUS WITH HYPOGLYCEMIA WITHOUT COMA (16) Pneumonia Code(s): J18.9 - PNEUMONIA, UNSPECIFIED ORGANISM Assessment/Plan new onse AF s/p fall 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 Bloom PCI Ramus 05/2014 Dr. Bloom s/p 2 coronary artery stents ( 2009) s/p right ICA endarterectomy Medical History Reviewed Condition Date Treating Physician Comments COPD DM HTN obesity s/p 2 coronary artery stents, in 2009 s/p [place]-->CABG in 1995 colitis iron-deficiency anemia Plan; ortho eval ECHO telemetry AC with unfractionated heparin while awaiting ORIF
[2018-06-15] MEDS ORDERED: ZOLPIDEM TARTRATE 5 MG TABLET PO ONE (00:19)
[2018-06-15] MEDS: INSULIN SLIDING SCALE (NOVOLOG) 1 VIAL SQ SCH ×4 (06:11→21:19)
[2018-06-15] MEDS: glipiZIDE 5 MG TABLET (FP) PO SCH (06:11)
[2018-06-15 06:35] LABS: BASO % 0.6 % (0-2.0); EOS % 13.6 % (0-4.5); HEMATOCRIT 29.8 % (32.4-45.2); LYMPH % 10.5 % (8-40); MCH 31.3 pg (25.7-33.7); MCHC 33.6 g/dl (32.0-36.0); MEAN CELL VOLUME 92.9 fl (80-96); MEAN PLT VOLUME 8.2 fl (7.5-11.1); MONO % 8.2 % (3.8-10.2); NEUT % 67.1 % (42.8-82.8); PLATELET COUNT 135 K/MM3 (134-434); RBC 3.21 M/mm3 (3.60-5.2); RDW 16.2 % (11.6-15.6); WHITE BLOOD COUNT 5.5 K/mm3 (4.0-10.0)
[2018-06-15 07:08] LABS: CHLORIDE 110 mmol/L (98-107); POTASSIUM 5.4 mmol/L (3.5-5.1); SODIUM 139 mmol/L (136-145)
[2018-06-15 07:14] LABS: ANION GAP 8 (8-16); BLOOD UREA NITROGEN 28 mg/dL (7-18); CALCIUM 8.7 mg/dL (8.5-10.1); CO2 21 mmol/L (21-32); CREATININE 1.3 mg/dL (0.55-1.02); GLUCOSE,RANDOM 217 mg/dL (74-106); MAGNESIUM 1.9 mg/dL (1.8-2.4); PHOSPHOROUS 2.8 mg/dL (2.5-4.9)
[2018-06-15] MEDS ORDERED: SODIUM POLYSTYRENE SULFONATE 15 GM/60 ML BOTTLE PO ONE (09:45)
[2018-06-15] MEDS ORDERED: PATIENT'S OWN MEDICATION (NON-FORMULARY) (Linaclotide [Linzess] 145 MCG) PO SCH (10:00)
[2018-06-15] MEDS ORDERED: PATIENT'S OWN MEDICATION (NON-FORMULARY) (Mesalamine [Mesalamine] 1.2 GM) PO SCH (10:00)
--- NOTE | 2018-06-15 11:01 | PN ---
Progress Note, Physician History of Present Illness: Ms Ashford is a pleasant 83 year old female who came in after sustaining a mechanical fall. She says she was walking in her kitchen and when she turned around to make a phone call she fell and hit her right side. She says that she was not lightheaded or dizzy prior to the fall. She did not pass out or hit her head. She did feel pain in her R arm where she hit it. She was unable to get up and waited for her aid to come who brought her into the hospital. She says she is feeling fine now after receiving pain medications. She says otherwise she is in her normal state of health. She says that for the past few months she gets lightheaded when she goes out into the sun so she has been staying inside. She has a history of shortness of breath requiring oxygen at home and this is unchanged. She denies fevers, chills, chest pain, coughing, wheezing, abdominal pain, nausea, vomiting, diarrhea, constipation, pain or difficulty urinating, frequency urinating, or swelling of the legs. 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 Bloom PCI Ramus 05/2014 Dr. Bloom s/p 2 coronary artery stents ( 2009) s/p right ICA endarterectomy Medical History Reviewed Condition Date Treating Physician Comments COPD DM HTN obesity s/p 2 coronary artery stents, in 2009 s/p [place]-->CABG in 1995 colitis iron-deficiency anemia - Current Medication List Current Medications: Active Medications Acetaminophen (Tylenol -) 650 mg PO Q6H PRN PRN Reason: FEVER Last Admin: 06/14/18 21:26 Dose: 650 mg Acetaminophen (Tylenol -) 650 mg PO Q4H PRN PRN Reason: PAIN LEVEL 1 - 3 Amlodipine Besylate (Norvasc -) 10 mg PO DAILY [facility] Clopidogrel Bisulfate (Plavix -) 75 mg PO DAILY [facility] Docusate Sodium (Colace -) 100 mg PO BID [facility] Last Admin: 06/14/18 21:23 Dose: Not Given Ergocalciferol (Drisdol -) 50,000 unit PO Perez@1000 [facility] Glipizide (Glucotrol -) 5 mg PO DAILY@0700 [facility] Last Admin: 06/15/18 06:11 Dose: Not Given Sodium Chloride (Normal Saline -) 1,000 mls @ 50 mls/hr IV ASDIR [facility] Stop: 06/15/18 17:01 Last Admin: 06/14/18 18:23 Dose: 50 mls/hr Insulin Aspart (Novolog Vial Sliding Scale -) 1 vial SQ ACHS [facility]; Protocol Last Admin: 06/15/18 06:11 Dose: Not Given Metoprolol Succinate (Toprol Xl -) 50 mg PO DAILY [facility] Non-Formulary Medication (Fluticasone/Salmeterol [Advair Hfa 115-21 Mcg Inhaler] ) 1 inh PO BID [facility] Non-Formulary Medication (Linaclotide [Linzess]) 145 mcg PO DAILY [facility] Non-Formulary Medication (Mesalamine [Mesalamine]) 1.2 gm PO DAILY [facility] Oxycodone HCl (Roxicodone -) 5 mg PO Q4H PRN PRN Reason: PAIN LEVEL 6-10 Last Admin: 06/14/18 21:24 Dose: 5 mg Polyethylene Glycol (Miralax (For Daily Use) -) 17 gm PO DAILY [facility] Rosuvastatin Calcium (Crestor -) 10 mg PO DAILY [facility] Valsartan (Diovan -) 320 mg PO DAILY [facility] - Objective Vital Signs: Vital Signs Temperature 98.1 F 06/15/18 06:00 Pulse Rate 83 06/15/18 06:00 Respiratory Rate 20 06/15/18 06:00 Blood Pressure 124/74 06/15/18 06:00 O2 Sat by Pulse Oximetry (%) 99 06/14/18 21:00 Eyes: Yes: WNL, Conjunctiva Clear, EOM Intact HENT: Yes: WNL, Atraumatic, Normocephalic Neck: Yes: WNL, Supple, Trachea Midline Cardiovascular: Yes: Pulse Irregular, S1, S2 Respiratory: Yes: WNL, Regular, CTA Bilaterally Gastrointestinal: Yes: WNL, Normal Bowel Sounds Genitourinary: Yes: WNL Musculoskeletal: Yes: WNL Extremities: Yes: WNL Edema: No Integumentary: Yes: WNL Neurological: Yes: WNL, Alert, Oriented ...Motor Strength: WNL Psychiatric: Yes: WNL Labs: CBC, BMP 06/15/18 05:30 06/15/18 05:30 INR, PTT INR 1.06 (0.82-1.09) 06/14/18 13:42 Problem List - Problems (1) CAD (coronary artery disease) Code(s): I25.10 - ATHSCL HEART DISEASE OF [place] CORONARY ARTERY W/O ANG PCTRS Qualifiers: Coronary Disease-Associated Artery/Lesion type: unspecified vessel or lesion type [place] vs. transplanted heart: [place] heart Associated angina: without angina Qualified Code(s): I25.10 - Atherosclerotic heart disease of [place] coronary artery without angina pectoris (2) CKD (chronic kidney disease) Code(s): N18.9 - CHRONIC KIDNEY DISEASE, UNSPECIFIED (3) COPD (chronic obstructive pulmonary disease) Code(s): J44.9 - CHRONIC OBSTRUCTIVE PULMONARY DISEASE, UNSPECIFIED (4) Chronic respiratory failure with hypoxia Code(s): J96.11 - CHRONIC RESPIRATORY FAILURE WITH HYPOXIA (5) Fall from standing Code(s): W19.XXXA - UNSPECIFIED FALL, INITIAL ENCOUNTER Qualifiers: Encounter type: initial encounter Qualified Code(s): W19.XXXA - Unspecified fall, initial encounter (6) Fracture, humerus closed Code(s): S42.309A - UNSP FRACTURE OF SHAFT OF HUMERUS, UNSP ARM, INIT Qualifiers: Encounter type: initial encounter Humerus Location: proximal Fracture morphology: other fracture Fracture alignment: displaced Laterality: right Qualified Code(s): S42.291A - Other displaced fracture of upper end of right humerus, initial encounter for closed fracture (7) HLD (hyperlipidemia) Code(s): E78.5 - HYPERLIPIDEMIA, UNSPECIFIED (8) HTN (hypertension) Code(s): I10 - ESSENTIAL (PRIMARY) HYPERTENSION (9) Hyperkalemia Code(s): E87.5 - HYPERKALEMIA (10) Murmur, cardiac Code(s): R01.1 - CARDIAC MURMUR, UNSPECIFIED (11) New onset atrial fibrillation Code(s): I48.91 - UNSPECIFIED ATRIAL FIBRILLATION (12) Chest pain Code(s): R07.9 - CHEST PAIN, UNSPECIFIED (13) Diabetes Code(s): E11.9 - TYPE 2 DIABETES MELLITUS WITHOUT COMPLICATIONS (14) Hx of CABG Code(s): Z95.1 - PRESENCE OF AORTOCORONARY BYPASS GRAFT (15) Hypoglycemia associated with type 2 diabetes mellitus Code(s): E11.649 - TYPE 2 DIABETES MELLITUS WITH HYPOGLYCEMIA WITHOUT COMA (16) Pneumonia Code(s): J18.9 - PNEUMONIA, UNSPECIFIED ORGANISM Assessment/Plan new onse AF s/p fall 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 Bloom PCI Ramus 05/2014 Dr. Bloom s/p 2 coronary artery stents ( 2009) s/p right ICA endarterectomy Medical History Reviewed Condition Date Treating Physician Comments COPD DM HTN obesity s/p 2 coronary artery stents, in 2009 s/p [place]-->CABG in 1995 colitis iron-deficiency anemia Plan; ortho eval ECHO telemetry AC with unfractionated heparin while awaiting ORIF
[2018-06-15] MEDS: DOCUSATE SODIUM 100 MG CAPSULE (FP) PO SCH ×2 (11:28→21:18)
[2018-06-15] MEDS: CLOPIDOGREL BISULFATE 75 MG TABLET (FP) PO SCH (11:28)
[2018-06-15] MEDS: ROSUVASTATIN CA 10 MG TABLET (FP) PO SCH (11:28)
[2018-06-15] MEDS: amLODIPine BESYLATE 10 MG TABLET (FP) PO SCH (11:28)
[2018-06-15] MEDS: VALSARTAN 160 MG TABLET (UD) PO SCH (11:28)
[2018-06-15] MEDS: POLYETHYLENE GLYCOL 3350 119 GM BTL PO SCH (11:29)
--- NOTE | 2018-06-15 12:09 | PN ---
Progress Note (short form) - Note Progress Note: Pt seen and examined. She is an 83 year old right hand dominant female s/p fall , with an injury to the right upper arm. LUL MOSER is grossly NVI. She has good ROM, with some limitations bc of pain, of the right elbow, forearm, wrist, fingers Right upper arm/shoulder with mild swelling and ecchymoses No obvious deformity Xrays Show a mildly angulated, very proximal right humerus fracture. The fracture is through the humeral head. Overall alignment, after I reduced it by moving her arm across her body, should be acceptable to treat nonoperatively. Imp 83 yo F with a very proximal right humerus/humeral head fracture. Rec Nonoperative treatment Sling in proper position F/u as an out pt in 7-10 days She does not need to be in the hospital from an orthopedic pov
[2018-06-15] MEDS ORDERED: INSULIN (NOVOLOG) ASPART 100 UNITS/ML 10ML VIAL ONE (12:18)
--- NOTE | 2018-06-15 13:33 | ECHO ---
Name: JENNIFER DEANINE Exam:Adult Echocardiogram Study Date: 06/15/2018 07:56 AM Age: 83 yrs Reason For Study: [place] Height: 61 in Weight: 159 lb BSA: 1.7 m2 MMode/2D Measurements & Calculations IVSd: 1.4 cm Ao root diam: 2.6 cm LVIDd: 4.5 cm LA dimension: 4.6 cm LVIDs: 3.8 cm LVPWd: 1.3 cm EDV(Teich): 90.9 ml LVOT diam: 2.0 cm ESV(Teich): 62.6 ml Doppler Measurements & Calculations TR max álvaro: 338.0 cm/sec PI Vmax: 119.4 cm/sec TR max P.4 mmHg Tech Comments PT. REFUSED HAD TO STOP THE TEST. Procedure Images were not obtained from all of the standard acoustic windows due to the limited scope of the st udy. The study was non-diagnostic in quality. No definitive statements could be made about this echo due to ex tremely poor acoustic windows. Left Ventricle The left ventricle is normal in size. The left ventricle is not well visualized. Due to the poor qual ity of the echocardiogram, an assessment of left ventricular ejection fraction cannot be made. Right Ventricle The right ventricle is not well visualized. Atria The left atrium is moderately dilated. The right atrium is moderately dilated. Mitral Valve There is mild mitral valve thickening. Tricuspid Valve There is mild tricuspid valve thickening. There is no tricuspid stenosis. There is severe tricuspid regurgitation. Right ventricular systolic pressure is elevated at 50-60mmHg. Aortic Valve The aortic valve is not well visualized. There is moderate to severe aortic valve thickening. There i s moderate to severe aortic sclerosis.;. Pulmonic Valve The pulmonic valve is not well visualized. There is no pulmonic valvular stenosis. Mild pulmonic valv ular regurgitation. Interpretation Summary PT. REFUSED HAD TO STOP THE TEST The left atrium is moderately dilated. The right atrium is moderately dilated. There is severe tricuspid regurgitation. Right ventricular systolic pressure is elevated at 50-60mmHg. Mild pulmonic valvular regurgitation. The left ventricle is normal in size. The left ventricle is not well visualized. Due to the poor quality of the echocardiogram, an assessment of left ventricular ejection fraction ca nnot be made. Images were not obtained from all of the standard acoustic windows due to the limited scope of the st udy. The study was non-diagnostic in quality. No definitive statements could be made about this echo due t o extremely poor acoustic windows. MD Melvin Peng 06/15/2018 01:33 PM
[2018-06-15] MEDS: oxyCODONE HCL 5 MG TABLET PO PRN ×2 (16:39→21:17)
[2018-06-15] MEDS: ACETAMINOPHEN 325 MG TABLET (FP) PO PRN (16:39)
[2018-06-15] MEDS: SODIUM CHLORIDE 1,000 ML IV SCH (17:22)
[2018-06-16] MEDS: oxyCODONE HCL 5 MG TABLET PO PRN ×2 (01:41→12:02)
[2018-06-16] MEDS: INSULIN SLIDING SCALE (NOVOLOG) 1 VIAL SQ SCH ×2 (06:10→11:38)
[2018-06-16] MEDS: glipiZIDE 5 MG TABLET (FP) PO SCH (06:12)
[2018-06-16 06:49] LABS: BASO % 0.7 % (0-2.0); EOS % 17.5 % (0-4.5); HEMATOCRIT 31.9 % (32.4-45.2); HEMOGLOBIN 10.7 GM/dL (10.7-15.3); LYMPH % 17.1 % (8-40); MCH 31.5 pg (25.7-33.7); MCHC 33.5 g/dl (32.0-36.0); MEAN PLT VOLUME 8.7 fl (7.5-11.1); MONO % 7.4 % (3.8-10.2); NEUT % 57.3 % (42.8-82.8); PLATELET COUNT 149 K/MM3 (134-434); RBC 3.39 M/mm3 (3.60-5.2); RDW 16.6 % (11.6-15.6)
[2018-06-16 06:59] LABS: BLOOD UREA NITROGEN 26 mg/dL (7-18); CHLORIDE 109 mmol/L (98-107); POTASSIUM 5.7 mmol/L (3.5-5.1); SODIUM 139 mmol/L (136-145)
[2018-06-16 07:03] LABS: ANION GAP 9 (8-16); CALCIUM 8.7 mg/dL (8.5-10.1); CO2 21 mmol/L (21-32); CREATININE 1.3 mg/dL (0.55-1.02); GLUCOSE,RANDOM 198 mg/dL (74-106); PHOSPHOROUS 3.4 mg/dL (2.5-4.9)
--- NOTE | 2018-06-16 09:15 | PN ---
Progress Note, Physician Chief Complaint: Pt A&Ox3; OOB in chair; c/o right shoulder pain; no chest pain, dyspnea, or palpitaions. + bilateral LE swelling "since they stopped my water pill". History of Present Illness: Pt, is an 83 yr old with PMHx of DM, HTN, HLD, CADx2 stent placement, valvular heart disease (severe TR; ? ), and CKD, presents after a fall to her R arm. Pt states she was walking in the kitchen when she tripped over her slippers and fell with her R arm in flexion against a chair. She was on the floor for 40 minutes before her son found her and called EMS. 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 She denies any headache, chest pain, or SOB before the fall. She denies any LOC or memory loss, and her aide states her behavior has been normal. She usually has baseline SOB, but can usually walk around the home without her home O2. She uses 3L O2 at home during rest. She has also had a productive cough x2 months, which has been treated with a short term of antibiotics but has not resolved. She denies any recent fevers/chills, chest pain, palpitations , urinary symptoms, nausea/vomiting, diarrhea, or increased leg swelling. 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 Bloom PCI Ramus 05/2014 Dr. Bloom s/p 2 coronary artery stents ( 2009) s/p right ICA endarterectomy Medical History Reviewed Condition Date Treating Physician Comments COPD DM HTN obesity - Current Medication List Current Medications: Active Medications Acetaminophen (Tylenol -) 650 mg PO Q6H PRN PRN Reason: FEVER Last Admin: 06/15/18 16:39 Dose: 650 mg Acetaminophen (Tylenol -) 650 mg PO Q4H PRN PRN Reason: PAIN LEVEL 1 - 3 Amlodipine Besylate (Norvasc -) 10 mg PO DAILY [facility] Last Admin: 06/15/18 11:28 Dose: 10 mg Clopidogrel Bisulfate (Plavix -) 75 mg PO DAILY [facility] Last Admin: 06/15/18 11:28 Dose: 75 mg Docusate Sodium (Colace -) 100 mg PO BID [facility] Last Admin: 06/15/18 21:18 Dose: 100 mg Ergocalciferol (Drisdol -) 50,000 unit PO Perez@1000 [facility] Glipizide (Glucotrol -) 5 mg PO DAILY@0700 [facility] Last Admin: 06/16/18 06:12 Dose: 5 mg Insulin Aspart (Novolog Vial Sliding Scale -) 1 vial SQ ACHS [facility]; Protocol Last Admin: 06/16/18 06:10 Dose: Not Given Metoprolol Succinate (Toprol Xl -) 50 mg PO DAILY [facility] Last Admin: 06/15/18 11:28 Dose: 50 mg Non-Formulary Medication (Fluticasone/Salmeterol [Advair Hfa 115-21 Mcg Inhaler] ) 1 inh PO BID [facility] Non-Formulary Medication (Linaclotide [Linzess]) 145 mcg PO DAILY [facility] Non-Formulary Medication (Mesalamine [Mesalamine]) 1.2 gm PO DAILY [facility] Oxycodone HCl (Roxicodone -) 5 mg PO Q4H PRN PRN Reason: PAIN LEVEL 6-10 Last Admin: 06/16/18 01:41 Dose: 5 mg Polyethylene Glycol (Miralax (For Daily Use) -) 17 gm PO DAILY [facility] Last Admin: 06/15/18 11:29 Dose: 17 grams Rosuvastatin Calcium (Crestor -) 10 mg PO DAILY [facility] Last Admin: 06/15/18 11:28 Dose: 10 mg Valsartan (Diovan -) 320 mg PO DAILY [facility] Last Admin: 06/15/18 11:28 Dose: 320 mg - Objective Vital Signs: Vital Signs Temperature 97.9 F 06/16/18 05:34 Pulse Rate 82 06/16/18 05:34 Respiratory Rate 18 06/16/18 05:34 Blood Pressure 168/66 06/16/18 05:34 O2 Sat by Pulse Oximetry (%) 94 L 06/15/18 21:00 Constitutional: Yes: Calm Eyes: Yes: WNL HENT: Yes: WNL Neck: Yes: WNL Labs: CBC, BMP 06/16/18 05:30 06/16/18 05:30 INR, PTT INR 1.06 (0.82-1.09) 06/14/18 13:42 Problem List - Problems (1) CAD (coronary artery disease) Code(s): I25.10 - ATHSCL HEART DISEASE OF [place] CORONARY ARTERY W/O ANG PCTRS Qualifiers: Coronary Disease-Associated Artery/Lesion type: unspecified vessel or lesion type [place] vs. transplanted heart: [place] heart Associated angina: without angina Qualified Code(s): I25.10 - Atherosclerotic heart disease of [place] coronary artery without angina pectoris (2) CKD (chronic kidney disease) Code(s): N18.9 - CHRONIC KIDNEY DISEASE, UNSPECIFIED (3) Fracture, humerus closed Code(s): S42.309A - UNSP FRACTURE OF SHAFT OF HUMERUS, UNSP ARM, INIT Qualifiers: Encounter type: initial encounter Humerus Location: proximal Fracture morphology: other fracture Fracture alignment: displaced Laterality: right Qualified Code(s): S42.291A - Other displaced fracture of upper end of right humerus, initial encounter for closed fracture (4) HLD (hyperlipidemia) Code(s): E78.5 - HYPERLIPIDEMIA, UNSPECIFIED (5) HTN (hypertension) Assessment/Plan: On multiple medications. Serial f/u of BP. Sodium restriction. Pain and anxiety management. Code(s): I10 - ESSENTIAL (PRIMARY) HYPERTENSION (6) New onset atrial fibrillation Code(s): I48.91 - UNSPECIFIED ATRIAL FIBRILLATION (7) Diabetes Code(s): E11.9 - TYPE 2 DIABETES MELLITUS WITHOUT COMPLICATIONS (8) Hypoglycemia associated with type 2 diabetes mellitus Code(s): E11.649 - TYPE 2 DIABETES MELLITUS WITH HYPOGLYCEMIA WITHOUT COMA (9) Atrial fibrillation Assessment/Plan: New onset AF. Will start rivaroxaban. On metoprolol ER for HR control. Code(s): I48.91 - UNSPECIFIED ATRIAL FIBRILLATION (10) Valvular heart disease Assessment/Plan: Severe TR, with significant pulmonary HTN. R/o significant aortic stenosis (limited ECHO this admission; unable to assess LVEF, degree of aortic stenosis; likely partly due to inability to position her due to shoulder injury).). Will repeat ECHO as outpatient Code(s): I38 - ENDOCARDITIS, VALVE UNSPECIFIED
--- NOTE | 2018-06-16 09:23 | PN ---
Progress Note (short form) - Note Progress Note: Ortho Pt seen and examined s/p right proximal humerus fx sling intact, + swelling, + ecchymosis, + ttp, decr rom, nvi a/p no surgery at this time sling, nwb pain control ok to d/c from ortho pov fu as outpt in 7-10 days d/w Dr. Davis
[2018-06-16] MEDS: DOCUSATE SODIUM 100 MG CAPSULE (FP) PO SCH (09:53)
[2018-06-16] MEDS: CLOPIDOGREL BISULFATE 75 MG TABLET (FP) PO SCH (09:53)
[2018-06-16] MEDS: VALSARTAN 160 MG TABLET (UD) PO SCH (09:53)
[2018-06-16] MEDS: ROSUVASTATIN CA 10 MG TABLET (FP) PO SCH (09:54)
[2018-06-16] MEDS: amLODIPine BESYLATE 10 MG TABLET (FP) PO SCH (09:54)
[2018-06-16] MEDS: POLYETHYLENE GLYCOL 3350 119 GM BTL PO SCH (10:36)
[2018-06-16] MEDS ORDERED: SODIUM POLYSTYRENE SULFONATE 15 GM/60 ML BOTTLE PO ONE (11:45)
[2018-06-16] MEDS ORDERED: RIVAROXABAN 15 MG TABLET PO SCH (11:45)
--- NOTE | 2018-06-16 12:31 | DS ---
Physical Examination Vital Signs: Vital Signs Temperature 36.6 C 06/16/18 05:34 Pulse Rate 82 06/16/18 05:34 Respiratory Rate 18 06/16/18 05:34 Blood Pressure 168/66 06/16/18 05:34 O2 Sat by Pulse Oximetry (%) 94 L 06/15/18 21:00 Constitutional: Yes: No Distress, Calm, Obese Cardiovascular: Yes: Pulse Irregular, Murmur. No: Regular Rate and Rhythm, Tachycardia, Gallop, Rub Respiratory: Yes: Regular, CTA Bilaterally. No: Rales, Rhonchi, Wheezes Gastrointestinal: Yes: Normal Bowel Sounds, Soft. No: Distention, Tenderness Extremities: Yes: Other (RUE in sling) Edema: No Labs: CBC, BMP 06/16/18 05:30 06/16/18 05:30 Discharge Summary Reason For Visit: CLOSED FRACTURE OF HUMERUS; NEW ONSET A FIB Current Active Problems Atrial fibrillation (Acute) CAD (coronary artery disease) (Acute) CKD (chronic kidney disease) (Acute) COPD (chronic obstructive pulmonary disease) (Acute) Chronic respiratory failure with hypoxia (Acute) Fall from standing (Acute) Fracture, humerus closed (Acute) HLD (hyperlipidemia) (Acute) HTN (hypertension) (Acute) Hyperkalemia (Acute) Murmur, cardiac (Acute) New onset atrial fibrillation (Acute) Valvular heart disease (Acute) Hospital Course: (1) Fall from standing Code(s): W19.XXXA - UNSPECIFIED FALL, INITIAL ENCOUNTER Qualifiers: Encounter type: initial encounter Qualified Code(s): W19.XXXA - Unspecified fall, initial encounter (2) New onset atrial fibrillation Code(s): I48.91 - UNSPECIFIED ATRIAL FIBRILLATION (3) Fracture, humerus closed Code(s): S42.309A - UNSP FRACTURE OF SHAFT OF HUMERUS, UNSP ARM, INIT Qualifiers: Encounter type: initial encounter Humerus Location: proximal Fracture morphology: other fracture Fracture alignment: displaced Laterality: right Qualified Code(s): S42.291A - Other displaced fracture of upper end of right humerus, initial encounter for closed fracture (4) Diabetes Code(s): E11.9 - TYPE 2 DIABETES MELLITUS WITHOUT COMPLICATIONS (5) COPD (chronic obstructive pulmonary disease) Code(s): J44.9 - CHRONIC OBSTRUCTIVE PULMONARY DISEASE, UNSPECIFIED (6) Chronic respiratory failure with hypoxia Code(s): J96.11 - CHRONIC RESPIRATORY FAILURE WITH HYPOXIA (7) CAD (coronary artery disease) Code(s): I25.10 - ATHSCL HEART DISEASE OF [place] CORONARY ARTERY W/O ANG PCTRS Qualifiers: Coronary Disease-Associated Artery/Lesion type: unspecified vessel or lesion type [place] vs. transplanted heart: [place] heart Associated angina: without angina Qualified Code(s): I25.10 - Atherosclerotic heart disease of [place] coronary artery without angina pectoris (8) HTN (hypertension) Code(s): I10 - ESSENTIAL (PRIMARY) HYPERTENSION (9) HLD (hyperlipidemia) Code(s): E78.5 - HYPERLIPIDEMIA, UNSPECIFIED (10) Murmur, cardiac Code(s): R01.1 - CARDIAC MURMUR, UNSPECIFIED (11) Hyperkalemia Code(s): E87.5 - HYPERKALEMIA (12) CKD (chronic kidney disease) Code(s): N18.9 - CHRONIC KIDNEY DISEASE, UNSPECIFIED Ms Ashford is an 83 year old female who came in with mechanical fall and closed humeral fracture and was found to have new onset atrial fibrillation. She was admitted under observation to telemetry. She was seen by ortho and no surgery was needed. She was seen by PT while here. Cardiology followed and she was started on xarelto. She was found to be hyperkalemic, her valsartan will be discontinued and she was given kayexalate. SNF was broached and patient refused. Currently she will be discharged home with home VNS. 36 minutes spent in preparation of this discharge Condition: Improved - Instructions Diet, Activity, Other Instructions: resume previous diet and activity Referrals: Shoaib Carrington MD [Primary Care Provider] - Shoaib Guadalupe MD [Staff Physician] - Chalino Tripathi MD [Staff Physician] - Disposition: VNS/HOME HEALTH CARE - Home Medications Comprehensive Discharge Medication List: Ambulatory Orders Acetaminophen [Tylenol .Regular Strength -] 650 mg PO Q6H PRN #0 tablet Albuterol Sulfate Inhaler - [Ventolin HFA Inhaler -] 1 - 2 inh PO QID PRN Amlodipine Besylate 10 mg PO DAILY 06/14/18 Cholecalciferol (Vitamin D3) [Vitamin D -] 50,000 unit PO DAILY 06/14/18 Clopidogrel Bisulfate [Plavix] 75 mg PO DAILY 06/14/18 Famotidine [Pepcid] 40 mg PO DAILY 06/14/18 Fluticasone Propionate 9.9 ml NS ASDIR 06/14/18 Fluticasone/Salmeterol [Advair Hfa 115-21 Mcg Inhaler] 1 inh PO ASDIR 06/14/18 Furosemide [Lasix] 40 mg PO DAILY 06/14/18 Glipizide 5 mg PO DAILY 06/14/18 Linaclotide [Linzess] 145 mcg PO DAILY 06/14/18 Mesalamine 1.2 gm PO DAILY 06/14/18 Mesalamine [Lialda] 1.2 gm PO ASDIR 06/14/18 Metformin HCl 850 mg PO ASDIR 06/14/18 Metoprolol Succinate 50 mg PO DAILY 06/14/18 Rosuvastatin [Crestor -] 10 mg PO DAILY 06/14/18 Rivaroxaban [Xarelto -] 15 mg PO DAILY@1800 #30 tablet 06/16/18 oxyCODONE HCL [Roxicodone -] 5 mg PO Q4H PRN #30 tablet MDD 30mg 06/16/18
--- NOTE | 2018-06-16 14:28 | EKG ---
Test Reason : Blood Pressure : / mmHG Vent. Rate : 096 BPM Atrial Rate : 127 BPM P-R Int : 000 ms QRS Dur : 088 ms QT Int : 392 ms P-R-T Axes : 000 022 090 degrees QTc Int : 495 ms ATRIAL FIBRILLATION NONSPECIFIC ST AND T WAVE ABNORMALITY PROLONGED QT ABNORMAL ECG WHEN COMPARED WITH ECG OF 14-JUN-2018 12:59, NO SIGNIFICANT CHANGE WAS FOUND Confirmed by STEVIE SOLIZ MD ([id number]) on 06/16/2018 2:28:09 PM Referred By: YOVANI RIBERA DR Confirmed By:STEVIE SOLIZ MD
[2018-06-16 15:06] VITALS: BP 145/78; PULSE 74; TEMP 98.4
--- NOTE | 2018-06-16 16:29 | PN ---
Progress Note, Physician Chief Complaint: Patient complains of arm pain - Objective Vital Signs: Vital Signs Temperature 36.9 C 06/16/18 10:00 Pulse Rate 74 06/16/18 10:00 Respiratory Rate 18 06/16/18 10:00 Blood Pressure 145/78 06/16/18 10:00 O2 Sat by Pulse Oximetry (%) 95 06/16/18 10:00 Constitutional: Yes: Well Nourished, No Distress, Calm Cardiovascular: Yes: Regular Rate and Rhythm. No: Gallop, Murmur, Rub Respiratory: Yes: Regular, CTA Bilaterally. No: Rales, Rhonchi, Wheezes Gastrointestinal: Yes: Normal Bowel Sounds, Soft. No: Distention, Tenderness Extremities: Yes: Other (RUE in sling) Edema: No Labs: CBC, BMP 06/16/18 05:30 06/16/18 05:30 INR, PTT INR 1.06 (0.82-1.09) 06/14/18 13:42 Problem List - Problems (1) Fall from standing Code(s): W19.XXXA - UNSPECIFIED FALL, INITIAL ENCOUNTER Qualifiers: Encounter type: initial encounter Qualified Code(s): W19.XXXA - Unspecified fall, initial encounter (2) New onset atrial fibrillation Code(s): I48.91 - UNSPECIFIED ATRIAL FIBRILLATION (3) Fracture, humerus closed Code(s): S42.309A - UNSP FRACTURE OF SHAFT OF HUMERUS, UNSP ARM, INIT Qualifiers: Encounter type: initial encounter Humerus Location: proximal Fracture morphology: other fracture Fracture alignment: displaced Laterality: right Qualified Code(s): S42.291A - Other displaced fracture of upper end of right humerus, initial encounter for closed fracture (4) Diabetes Code(s): E11.9 - TYPE 2 DIABETES MELLITUS WITHOUT COMPLICATIONS (5) COPD (chronic obstructive pulmonary disease) Code(s): J44.9 - CHRONIC OBSTRUCTIVE PULMONARY DISEASE, UNSPECIFIED (6) Chronic respiratory failure with hypoxia Code(s): J96.11 - CHRONIC RESPIRATORY FAILURE WITH HYPOXIA (7) CAD (coronary artery disease) Code(s): I25.10 - ATHSCL HEART DISEASE OF [place] CORONARY ARTERY W/O ANG PCTRS Qualifiers: Coronary Disease-Associated Artery/Lesion type: unspecified vessel or lesion type [place] vs. transplanted heart: [place] heart Associated angina: without angina Qualified Code(s): I25.10 - Atherosclerotic heart disease of [place] coronary artery without angina pectoris (8) HTN (hypertension) Code(s): I10 - ESSENTIAL (PRIMARY) HYPERTENSION (9) HLD (hyperlipidemia) Code(s): E78.5 - HYPERLIPIDEMIA, UNSPECIFIED (10) Murmur, cardiac Code(s): R01.1 - CARDIAC MURMUR, UNSPECIFIED (11) Hyperkalemia Code(s): E87.5 - HYPERKALEMIA (12) CKD (chronic kidney disease) Code(s): N18.9 - CHRONIC KIDNEY DISEASE, UNSPECIFIED Assessment/Plan (1) Fall from standing Assessment/Plan: -mechanical fall -PT following Code(s): W19.XXXA - UNSPECIFIED FALL, INITIAL ENCOUNTER Qualifiers: Encounter type: initial encounter Qualified Code(s): W19.XXXA - Unspecified fall, initial encounter (2) New onset atrial fibrillation Assessment/Plan: -appreciate cardiology assistance -patient did not finish echo -on heparin gtt, awaiting recommendations for long term care administrator AC -continue telemetry Code(s): I48.91 - UNSPECIFIED ATRIAL FIBRILLATION (3) Fracture, humerus closed Assessment/Plan: -no need for surgery Code(s): S42.309A - UNSP FRACTURE OF SHAFT OF HUMERUS, UNSP ARM, INIT Qualifiers: Encounter type: initial encounter Humerus Location: proximal Fracture morphology: other fracture Fracture alignment: displaced Laterality: right Qualified Code(s): S42.291A - Other displaced fracture of upper end of right humerus, initial encounter for closed fracture (4) Diabetes Assessment/Plan: -restart diet -continue current management Code(s): E11.9 - TYPE 2 DIABETES MELLITUS WITHOUT COMPLICATIONS (5) COPD (chronic obstructive pulmonary disease) Assessment/Plan: -continue advair and oxygen Code(s): J44.9 - CHRONIC OBSTRUCTIVE PULMONARY DISEASE, UNSPECIFIED (6) Chronic respiratory failure with hypoxia Assessment/Plan: -continue oxygen Code(s): J96.11 - CHRONIC RESPIRATORY FAILURE WITH HYPOXIA (7) CAD (coronary artery disease) Assessment/Plan: -quiescent -continue home regimen Code(s): I25.10 - ATHSCL HEART DISEASE OF [place] CORONARY ARTERY W/O ANG PCTRS Qualifiers: Coronary Disease-Associated Artery/Lesion type: unspecified vessel or lesion type [place] vs. transplanted heart: [place] heart Associated angina: without angina Qualified Code(s): I25.10 - Atherosclerotic heart disease of [place] coronary artery without angina pectoris (8) HTN (hypertension) Assessment/Plan: -well controlled -continue home regimen Code(s): I10 - ESSENTIAL (PRIMARY) HYPERTENSION (9) HLD (hyperlipidemia) Assessment/Plan: -continue statin Code(s): E78.5 - HYPERLIPIDEMIA, UNSPECIFIED (10) Murmur, cardiac Assessment/Plan: -ECHO incomplete -patient refusing further ECHO Code(s): R01.1 - CARDIAC MURMUR, UNSPECIFIED (11) Hyperkalemia Assessment/Plan: -give kayexalate -may need to stop valsartan Code(s): E87.5 - HYPERKALEMIA (12) CKD (chronic kidney disease) Assessment/Plan: -stable Code(s): N18.9 - CHRONIC KIDNEY DISEASE, UNSPECIFIED
[2018-06-19] MEDS ORDERED: ERGOCALCIFEROL (VITAMIN D2) 50,000 UNIT CAPSULE (FP) PO SCH (10:00)
== END 2018-06-16 15:07 | disposition home health service (06) ==
LOC: JER 11:50 → JERBED 16:45 → J4W 19:15
PROVIDERS: ADMIT Internal Medicine; ATTEND Internal Medicine
PROC: 3E03329 Introduction of Other Anti-infective into Peripheral Vein, Percutaneous Approach (ICD-10-PCS; principal; 2018-06-14)
PROC: 3E033NZ Introduction of Analgesics, Hypnotics, Sedatives into Peripheral Vein, Percutaneous Approach (ICD-10-PCS; 2018-06-14)
PROC: 3E0337Z Introduction of Electrolytic and Water Balance Substance into Peripheral Vein, Percutaneous Approach (ICD-10-PCS; 2018-06-14)
DX: I48.91 Unspecified atrial fibrillation (principal); I25.10 Atherosclerotic heart disease of native coronary artery without angina pectoris; E11.22 Type 2 diabetes mellitus with diabetic chronic kidney disease; E11.649 Type 2 diabetes mellitus with hypoglycemia without coma; I12.9 Hypertensive chronic kidney disease with stage 1 through stage 4 chronic kidney disease, or unspecified chronic kidney disease; N18.9 Chronic kidney disease, unspecified; J44.9 Chronic obstructive pulmonary disease, unspecified; J96.11 Chronic respiratory failure with hypoxia; R01.1 Cardiac murmur, unspecified; E87.5 Hyperkalemia; E78.5 Hyperlipidemia, unspecified; J18.9 Pneumonia, unspecified organism; I38 Endocarditis, valve unspecified; W01.0XXA Fall on same level from slipping, tripping and stumbling without subsequent striking against object, initial encounter; S42.291A Other displaced fracture of upper end of right humerus, initial encounter for closed fracture; Y93.01 Activity, walking, marching and hiking; Y92.000 Kitchen of unspecified non-institutional (private) residence as the place of occurrence of the external cause; Z99.81 Dependence on supplemental oxygen; Z79.84 Long term (current) use of oral hypoglycemic drugs; Z95.5 Presence of coronary angioplasty implant and graft; Z88.1 Allergy status to other antibiotic agents; Z87.891 Personal history of nicotine dependence; Z95.1 Presence of aortocoronary bypass graft
CPT/HCPCS: 36415; 70450-TC; 71045-TC-FY; 73030-TC-RT-FY; 73060-TC-RT-FY; 73200-TC-RT; 80048; 80053; 81003; 81015; 82550; 82553; 82962; 83735; 84100; 84439; 84443; 84484; 85025; 85610; 85730; 87086; 93005; 93010; 93306-TC; 96365; 96375; 97116-GP; 97161-GP; 99283-25; G0378; J0131; J7030

== ENCOUNTER 2018-11-15 02:19 | Inpatient (IN) | payer OTHER ==
[2018-11-15] MEDS ORDERED: ACETAMINOPHEN 1000 MG/100 ML VIAL (NON FORMULARY) IVPB ONE (02:28)
[2018-11-15] MEDS ORDERED: ACETAMINOPHEN INJECTION 100 ML IVPB ONE (02:33)
[2018-11-15] MEDS ORDERED: AZITHROMYCIN IVPB 500 MG in DEXTROSE 5%-WATER - 250 ML IVPB ONE (02:37)
[2018-11-15] MEDS ORDERED: AZITHROMYCIN IVPB 500 MG/250 ML BAG IVPB ONE (02:40)
[2018-11-15] MEDS ORDERED: morphine CARPU-JECT 4 MG/1 ML DISP.SYRIN IVPUSH ONE (02:40)
[2018-11-15] MEDS ORDERED: CEFTRIAXONE 1,000 MG in DEXTROSE 5%-WATER - 50 ML IVPB ONE (02:44)
[2018-11-15] MEDS ORDERED: PROPOFOL 1,000,000 MCG/100 ML VIAL IVPB SCH (02:45)
[2018-11-15] MEDS ORDERED: MORPHINE SULFATE 10 MG/1 ML *VIAL ONE (02:51)
[2018-11-15] MEDS ORDERED: cefTRIAXone SODIUM 1 GM VIAL ONE (02:54)
[2018-11-15] MEDS ORDERED: PROPOFOL 1,000,000 MCG/100 ML VIAL ONE (02:54)
--- NOTE | 2018-11-15 02:58 | PDOC ---
Attending Attestation - Resident Resident Name: ThomasNoris - ED Attending Attestation I have performed the following: I have examined & evaluated the patient, The case was reviewed & discussed with the resident, I agree w/resident's findings & plan - HPI HPI: 11/15/18 02:55 Pt comes with SOB and difficulty breathing. She has DM and her blood glc was over 500s. Pt went into cardiac arrest when EMS showed up, so they started CPR, and gave 3 rounds of EPI with ROSC. Pt is currently in AFIB. 11/15/18 04:16 Pt was sedated with morphine 8mg. She is tolerating the vent - Physicial Exam PE: 11/15/18 03:01 Pt is awake and calm with the the ETT in her throat. She is pale, brought unclothed in the ambulance (clothes cut off) but pt warms readily in the ER. Pt has fever in the ER. SHe has coarse breaths bilat. She has no tenderness of the abd pelvis. She has no broken limbs. 11/15/18 07:34 Agree with resident exam - Critical Care Time Total Critical Care Time: 90 Critical Care Statement: The care of this patient involved high complexity decision making to prevent further life threatening deterioration of the patient 's condition and/or to evaluate & treat vital organ system(s) failure or risk of failure. - Medical Decision Making 11/15/18 07:35 Central line placed under US guadance in pt's left femoral vein 11/15/18 07:35 Pt has bilateral pneumonia. She was treated with ceftriaxone and zithromax fever; elevated blood sugar; peaked Ts on EKG; PH low on ABG; Vent was adjusted, and pt was given 1 amp bicarb in a bag of saline. Pt received 10U reg insulin IVP. Pt relatively stable and accepted to the ICU Procedures - Central Line Central Line Lumen: triple Central Line Position: femoral (L) Anesthesia: 1% Lidocaine Amount of anesthesia (ccs): 2 Complications: none Post Central Line Insertion: sutured, good blood return
--- NOTE | 2018-11-15 03:03 | PDOC ---
History of Present Illness - General Chief Complaint: Cardiac Arrest Stated Complaint: CARDIAC ARREST Time Seen by Provider: 11/15/18 02:53 - History of Present Illness Initial Comments: 11/15/18 03:12 History obtained from EMR and EMS Patient is an 83 year old female with a PMH of colitis, diabetes, hypertension, hypercholesterolemia, cardiac stent x2 (on aspirin and Plavix), on 3L O2 who was BIBEMS s/p cardiac arrest with ROSC. EMS initially called for shortness of breath. While being transported from her house to the ambulance patient went to cardiac arrest, Epinephrine x3, was down for approximately 15 minutes before ROSC. At presentation to our ED patient intubated, hypertensive (150/115), BS > 500. Past History - Past Medical History Allergies/Adverse Reactions: Allergies Allergy/AdvReac Type Severity Reaction Status Date / Time amoxicillin [Amoxicillin] AdvReac Verified 11/15/18 02:31 Home Medications: Ambulatory Orders Acetaminophen [Tylenol .Regular Strength -] 650 mg PO Q6H PRN #0 tablet Albuterol Sulfate Inhaler - [Ventolin HFA Inhaler -] 1 - 2 inh PO QID PRN Amlodipine Besylate 10 mg PO DAILY 06/14/18 Cholecalciferol (Vitamin D3) [Vitamin D -] 50,000 unit PO DAILY 06/14/18 Clopidogrel Bisulfate [Plavix] 75 mg PO DAILY 06/14/18 Famotidine [Pepcid] 40 mg PO DAILY 06/14/18 Fluticasone Propionate 9.9 ml NS ASDIR 06/14/18 Fluticasone/Salmeterol [Advair Hfa 115-21 Mcg Inhaler] 1 inh PO ASDIR 06/14/18 Furosemide [Lasix] 40 mg PO DAILY 06/14/18 Glipizide 5 mg PO DAILY 06/14/18 Linaclotide [Linzess] 145 mcg PO DAILY 06/14/18 Mesalamine 1.2 gm PO DAILY 06/14/18 Mesalamine [Lialda] 1.2 gm PO ASDIR 06/14/18 Metoprolol Succinate 50 mg PO DAILY 06/14/18 Rosuvastatin [Crestor -] 10 mg PO DAILY 06/14/18 metFORMIN HCL [Metformin HCl] 850 mg PO ASDIR 06/14/18 Rivaroxaban [Xarelto] 15 mg PO DAILY@1800 #30 tablet 06/16/18 oxyCODONE HCL [Roxicodone -] 5 mg PO Q4H PRN #30 tablet MDD 30mg 06/16/18 Anemia: Yes Asthma: Yes Cancer: No Cardiac Disorders: Yes CVA: No COPD: Yes CHF: No Dementia: No Diabetes: Yes Dialysis: No GI Disorders: No Disorders: Yes ("MASS ON KIDNEY") HTN: Yes Hypercholesterolemia: Yes Liver Disease: No Psychiatric Problems: Yes (ANXIETY.) Seizures: No Thyroid Disease: No - Surgical History Abdominal Surgery: No Appendectomy: No Cardiac Surgery: Yes (BYPASS, STENT.) Cholecystectomy: No Lung Surgery: No Neurologic Surgery: No Orthopedic Surgery: No - Immunization History Immunization Up to Date: Yes - Suicide/Smoking/Psychosocial Hx Smoking History: Unknown if ever smoked Have you smoked in the past 12 months: No Number of Cigarettes Smoked Daily: 26 If you are a former smoker, when did you quit?: 1984 Hx Alcohol Use: No Drug/Substance Use Hx: No Substance Use Type: None Hx Substance Use Treatment: No Review of Systems - Review of Systems Able to Perform ROS?: No (Intubated) *Physical Exam - Vital Signs Last Vital Signs Temp Pulse Resp BP Pulse Ox 102.5 F H 84 16 150/115 H 71 L 11/15/18 02:20 11/15/18 02:19 11/15/18 02:25 11/15/18 02:19 11/15/18 02:19 - Physical Exam Comments: 11/15/18 04:27 Intubated, Hypertensive HEENT: L blown pupil, non-reactive, no appreciable hematoma/laceration Respiratory: decreased breath sounds B/L, scattered rhonchi CV: S1, S2, 2+ femoral and radial pulses MSK: No vertebral step offs, poor rectal tone Moderate Sedation - Procedure Monitoring Vital Signs: Procedure Monitoring Vital Signs Temperature 102.5 F H 11/15/18 02:20 Pulse Rate 84 11/15/18 02:19 Respiratory Rate 16 11/15/18 02:25 Blood Pressure 150/115 H 11/15/18 02:19 O2 Sat by Pulse Oximetry (%) 71 L 11/15/18 02:19 ED Treatment Course - LABORATORY CBC & Chemistry Diagram: 11/15/18 00:50 11/15/18 02:30 - Medications Given in the ED: ED Medications Discontinued Medications Generic Name Dose Route Start Last Admin Trade Name Chandra PRN Reason Stop Dose Admin Acetaminophen 1,000 mg 11/15/18 02:28 11/15/18 02:44 Ofirmev Injection - IVPB 11/15/18 02:29 1,000 mg ONCE ONE Administration Medical Decision Making - Medical Decision Making 11/15/18 02:53 83 year old female s/p cardiac arrest. Intubated, hypertensive upon arrival. Rectal Temp 102.CXR showed broken ribs, as well as B/L infiltrate. Ceftriaxone and Azithromycin for presumptive PNA. Tylenol for fever. Morphine for pain control. Repeat FS > 600 BP 90's/60's - likely 2/2 to Morphine, 3 L IV NS, awaiting labs (K+) before hyperglycemia correct ECG show AFib with TWI in aVR, aVL and V5, V6 suggestive of lateral ischemia 11/15/18 04:16 Mcclain Scan - my read shows no acute bleed; L sided pleural effusion. BP improving. 11/15/18 04:25 6.91/58.4/57.5/10.9 1 amp Sodium Bicarb with repeat ABG pending 11/15/18 04:32 Repeat 103/56 - s/p 3 L IV NS, will administer additional 1 L IV NS; CMP pending, fluids will also correct hyperglycemia; will repeat FS once K+ reported. 11/15/18 04:44 Lactic Acid 14.1 K+ 5.5, will repeat K+ s/p fluids ICU aware 11/15/18 04:48 Repeat BP 84/55; IV fluids hanging B/L blown pupil non-reactive however patient does respond to name. Hospitalist team @ bedside 11/15/18 05:01 CT shows B/L pleural effusion; Head CT negative ICU/Hospitalist aware *DC/Admit/Observation/Transfer Diagnosis at time of Disposition: Cardiac arrest - Discharge Dispostion Condition at time of disposition: Critical Decision to Admit order: Yes - Referrals Referrals: Shoaib Carrington MD [Primary Care Provider] - - Patient Instructions - Post Discharge Activity
[2018-11-15 03:14] LABS: BASO % 0.8 % (0-2.0); EOS % 1.6 % (0-4.5); HEMATOCRIT 35.2 % (32.4-45.2); HEMOGLOBIN 10.8 GM/dL (10.7-15.3); LYMPH % 31.9 % (8-40); MCHC 30.5 g/dl (32.0-36.0); MEAN CELL VOLUME 101.7 fl (80-96); MONO % 6.6 % (3.8-10.2); NEUT % 59.1 % (42.8-82.8); PLATELET COUNT 230 K/MM3 (134-434); RBC 3.47 M/mm3 (3.60-5.2); RDW 17.3 % (11.6-15.6); WHITE BLOOD COUNT 11.6 K/mm3 (4.0-10.0)
[2018-11-15] MEDS ORDERED: VECURONIUM BROMIDE 50 MG in DEXTROSE 5%-WATER - 250 ML IVPB SCH ×2 (03:15→06:30)
[2018-11-15 03:24] LABS: INR 1.1 (0.83-1.09)
[2018-11-15 03:27] LABS: ACTIVATED PTT 49.5 SECONDS (25.2-36.5)
[2018-11-15 03:43] LABS: ARTERIAL BLOOD GAS PCO2 57.5 mmHg (35-45); ARTERIAL BLOOD GAS PO2 58.4 mmHg (68-100); CARBOXYHEMOGLOBIN 0.4 gm% (0.5-2.0)
[2018-11-15 03:46] LABS: ALLENS TEST POSITIVE
--- NOTE | 2018-11-15 03:57 | PDOC ---
History of Present Illness - General Chief Complaint: Cardiac Arrest Stated Complaint: CARDIAC ARREST Time Seen by Provider: 11/15/18 02:53 Past History - Past Medical History Allergies/Adverse Reactions: Allergies Allergy/AdvReac Type Severity Reaction Status Date / Time amoxicillin [Amoxicillin] AdvReac Verified 11/15/18 02:31 Home Medications: Ambulatory Orders Acetaminophen [Tylenol .Regular Strength -] 650 mg PO Q6H PRN #0 tablet Albuterol Sulfate Inhaler - [Ventolin HFA Inhaler -] 1 - 2 inh PO QID PRN Amlodipine Besylate 10 mg PO DAILY 06/14/18 Cholecalciferol (Vitamin D3) [Vitamin D -] 50,000 unit PO DAILY 06/14/18 Clopidogrel Bisulfate [Plavix] 75 mg PO DAILY 06/14/18 Famotidine [Pepcid] 40 mg PO DAILY 06/14/18 Fluticasone Propionate 9.9 ml NS ASDIR 06/14/18 Fluticasone/Salmeterol [Advair Hfa 115-21 Mcg Inhaler] 1 inh PO ASDIR 06/14/18 Furosemide [Lasix] 40 mg PO DAILY 06/14/18 Glipizide 5 mg PO DAILY 06/14/18 Linaclotide [Linzess] 145 mcg PO DAILY 06/14/18 Mesalamine 1.2 gm PO DAILY 06/14/18 Mesalamine [Lialda] 1.2 gm PO ASDIR 06/14/18 Metoprolol Succinate 50 mg PO DAILY 06/14/18 Rosuvastatin [Crestor -] 10 mg PO DAILY 06/14/18 metFORMIN HCL [Metformin HCl] 850 mg PO ASDIR 06/14/18 Rivaroxaban [Xarelto] 15 mg PO DAILY@1800 #30 tablet 06/16/18 oxyCODONE HCL [Roxicodone -] 5 mg PO Q4H PRN #30 tablet MDD 30mg 06/16/18 Anemia: Yes Asthma: Yes Cancer: No Cardiac Disorders: Yes CVA: No COPD: Yes CHF: No Dementia: No Diabetes: Yes Dialysis: No GI Disorders: No Disorders: Yes ("MASS ON KIDNEY") HTN: Yes Hypercholesterolemia: Yes Liver Disease: No Psychiatric Problems: Yes (ANXIETY.) Seizures: No Thyroid Disease: No - Surgical History Abdominal Surgery: No Appendectomy: No Cardiac Surgery: Yes (BYPASS, STENT.) Cholecystectomy: No Lung Surgery: No Neurologic Surgery: No Orthopedic Surgery: No - Immunization History Immunization Up to Date: Yes - Suicide/Smoking/Psychosocial Hx Smoking History: Unknown if ever smoked Have you smoked in the past 12 months: No Number of Cigarettes Smoked Daily: 26 If you are a former smoker, when did you quit?: 1984 Hx Alcohol Use: No Drug/Substance Use Hx: No Substance Use Type: None Hx Substance Use Treatment: No *Physical Exam - Vital Signs Last Vital Signs Temp Pulse Resp BP Pulse Ox 102.5 F H 84 16 150/115 H 71 L 11/15/18 02:20 11/15/18 02:19 11/15/18 02:25 11/15/18 02:19 11/15/18 02:19 Moderate Sedation - Procedure Monitoring Vital Signs: Procedure Monitoring Vital Signs Temperature 102.5 F H 11/15/18 02:20 Pulse Rate 84 11/15/18 02:19 Respiratory Rate 16 11/15/18 02:25 Blood Pressure 150/115 H 11/15/18 02:19 O2 Sat by Pulse Oximetry (%) 71 L 11/15/18 02:19 ED Treatment Course - LABORATORY CBC & Chemistry Diagram: 11/15/18 02:30 - Medications Given in the ED: ED Medications Discontinued Medications Generic Name Dose Route Start Last Admin Trade Name Stantonq PRN Reason Stop Dose Admin Acetaminophen 1,000 mg 11/15/18 02:28 11/15/18 02:44 Ofirmev Injection - IVPB 11/15/18 02:29 1,000 mg ONCE ONE Administration *DC/Admit/Observation/Transfer - Discharge Dispostion Condition at time of disposition: Critical - Referrals Referrals: Shoaib Carrington MD [Primary Care Provider] - - Patient Instructions - Post Discharge Activity
[2018-11-15 04:00] LABS: ARTERIAL BLD GAS O2 SATURATION 67.5 % (90-98.9); ARTERIAL BLOOD GAS pH 6.91 (7.35-7.45)
[2018-11-15] MEDS ORDERED: SODIUM BICARBONATE 8.4% 50 MEQ/50 ML VIAL IV ONE (04:12)
[2018-11-15 04:26] LABS: ACETONE SERUM NEGATIVE (NEGATIVE)
[2018-11-15 04:43] LABS: ALBUMIN 2.4 g/dl (3.4-5.0); ALK PHOS 105 U/L (45-117); ANION GAP 22 MMOL/L (8-16); BILIRUBIN,TOTAL 0.4 mg/dL (0.2-1); BLOOD UREA NITROGEN 53 mg/dL (7-18); CALCIUM 7.7 mg/dL (8.5-10.1); CHLORIDE 103 mmol/L (98-107); CO2 12 mmol/L (21-32); CREATININE 2.9 mg/dL (0.55-1.3); POTASSIUM 5.5 mmol/L (3.5-5.1); SGOT/AST 197 U/L (15-37); SGPT/ALT 99 U/L (13-61); SODIUM 136 mmol/L (136-145)
[2018-11-15 04:46] LABS: GLUCOSE,RANDOM 495 mg/dL (74-106)
[2018-11-15] MEDS ORDERED: SODIUM CHLORIDE 0.9% 500 ML INFUS.BAG IV ONE (04:46)
[2018-11-15] MEDS ORDERED: INSULIN REGULAR HUMAN 100 UNITS/ML *VIAL IVPUSH ONE (04:56)
[2018-11-15] MEDS ORDERED: INSULIN REGULAR HUMAN 100 UNITS/ML *VIAL ONE (04:57)
[2018-11-15 05:16] LABS: MAGNESIUM 2.5 mg/dL (1.8-2.4)
--- NOTE | 2018-11-15 05:31 | CONSULT ---
Consult Consult Specialty:: Pulm/CCM Referred by:: Dr. Darling Reason for Consultation:: Post cardiac arrest - History of Present Illness History of Present Illness: 83 yo F h/o colitis, NIDDM, HTN, HLD, a-fib on xarelto, CAD s/p stent x2 on Plavix, tricuspid regurg with pulmonary HTN, COPD on 3L O2 at home BIBEMS post- cardiac arrest. Per EMS and ED chart, EMS was called initially for shortness of breath. While being transported from patient's home to hospital, patient coded and ROSC achieved in 15 mins after 3 rounds of epi. She was intubated in the field and cardiac rhythm returned to rate controlled a-fib. Upon arrival to ED, she's hemodynamically unstable, frebile at 102F with bilateral dilated pupils, labs are significant for lactate of 14, glc of 495, K+ 5.5, ABG pH 6.91, CO2 57.5 bicarb of 12, gap of 22. CT chest showed b/l pleural effusion and consolidation possible PNA. EKG showed rate controlled afib with TWI in aVR, aVL and V5, V6. Patient was given 8 mg of morphine, 50 donis of bicarb, 4L of fluids, paralyzed w/ vecuronium. - Past Medical History Cardio/Vascular: Yes: CAD, CHF, HTN, Hyperlipdemia Pulmonary: Yes: Pneumonia Gastrointestinal: Yes: Other (colitis) Infectious Disease: Yes: Other (shingles) Endocrine: Yes: Diabetes Mellitus - Past Surgical History Past Surgical History: Yes: CABG (x2 vessel 20yrs ago, cardiac stents x2), C- Section, Hysterectomy - Alcohol/Substance Use Hx Alcohol Use: No History of Substance Use: reports: None - Smoking History Smoking history: Unknown if ever smoked Have you smoked in the past 12 months: No Aproximately how many cigarettes per day: 26 If you are a former smoker, when did you quit?: 1984 - Social History ADL: Support Services History of Recent Travel: No Home Medications - Allergies Allergies/Adverse Reactions: Allergies Allergy/AdvReac Type Severity Reaction Status Date / Time amoxicillin [Amoxicillin] AdvReac Verified 11/15/18 02:31 - Home Medications Home Medications: Ambulatory Orders Acetaminophen [Tylenol .Regular Strength -] 650 mg PO Q6H PRN #0 tablet Albuterol Sulfate Inhaler - [Ventolin HFA Inhaler -] 1 - 2 inh PO QID PRN Amlodipine Besylate 10 mg PO DAILY 06/14/18 Cholecalciferol (Vitamin D3) [Vitamin D -] 50,000 unit PO DAILY 06/14/18 Clopidogrel Bisulfate [Plavix] 75 mg PO DAILY 06/14/18 Famotidine [Pepcid] 40 mg PO DAILY 06/14/18 Fluticasone Propionate 9.9 ml NS ASDIR 06/14/18 Fluticasone/Salmeterol [Advair Hfa 115-21 Mcg Inhaler] 1 inh PO ASDIR 06/14/18 Furosemide [Lasix] 40 mg PO DAILY 06/14/18 Glipizide 5 mg PO DAILY 06/14/18 Linaclotide [Linzess] 145 mcg PO DAILY 06/14/18 Mesalamine 1.2 gm PO DAILY 06/14/18 Mesalamine [Lialda] 1.2 gm PO ASDIR 06/14/18 Metoprolol Succinate 50 mg PO DAILY 06/14/18 Rosuvastatin [Crestor -] 10 mg PO DAILY 06/14/18 metFORMIN HCL [Metformin HCl] 850 mg PO ASDIR 06/14/18 Rivaroxaban [Xarelto] 15 mg PO DAILY@1800 #30 tablet 06/16/18 oxyCODONE HCL [Roxicodone -] 5 mg PO Q4H PRN #30 tablet MDD 30mg 06/16/18 Family Disease History - Family Disease History Family Disease History: CA: Father (lung cancer), Mother (stomach cancer) Review of Systems Unable to obtain ROS, reason: Ubtunded, unresponsive Physical Exam Vital Signs: Vital Signs Temperature 102.4 F H 11/15/18 04:47 Pulse Rate 83 11/15/18 04:57 Respiratory Rate 18 11/15/18 04:57 Blood Pressure 90/47 L 11/15/18 04:57 O2 Sat by Pulse Oximetry (%) 98 11/15/18 04:57 Constitutional: Yes: Other (Unresponsive to sternal rub, verbal or painful stimuli, RASS -5) Eyes: Yes: Other (b/l dilated pupils) Cardiovascular: Yes: Pulse Irregular, S1, S2. No: Murmur Respiratory: Yes: Mechanically Ventilated Gastrointestinal: Yes: Normal Bowel Sounds, Soft, Distention Edema: No Neurological: Yes: Unresponsive Labs: CBC, BMP 11/15/18 00:50 11/15/18 02:30 Imaging - Results X-ray: Report Reviewed, Image Reviewed Cat Scan: Report Reviewed, Image Reviewed Assessment/Plan 83 yo F h/o colitis, NIDDM, HTN, HLD, a-fib on xarelto, CAD s/p stent x2 on plavix, severe TR with pulm. HTN, COPD on 3L O2 admitted to ICU for post- cardiac management. CV 1. post-cardiac arrest - therapeutic hypothermia with target temp of 33-34 Celsius at ~6:30am, passive rewarm after 24 hours - paralyze and sedate the patient - pressor support to maintain perfusion with MAP > 65, SBP > 90 - daily coags and strict glycemic control - cardiac monitoring for arrhythmia - avoid fluids due to existing effusion and pulm. edema - elevated trop likely due to PEA, cannot r/o ischemia based on new EKG changes - cardiology consult 2. afib - rate controlled - cont. xarelto - hold beta humphrey 3. Severe tricuspid regurg. with pulm. HTN - avoid more fluid to minimize RV overload - diuresis as renal function allows - repeat ECHO 4. CAD s/p stent x 2 - cont. plavix Pulm 1. acute on chronic hypoxemic respiratory failure - likely 2/2 COPD exacerbation vs. or in the setting of PNA - intubated on mechanical ventilator - maintain SpO2 > 90% 2. bilateral pleural effusion - moderate in size, with mild pulm. edema - lasix 40mg IV push ID 1. septic shock 2/2 PNA - 4L NS given documented in ED chart - Received rocephin and azithromycin for PNA coverage - cont. such abx regiment for now - tylenol for fever - will obtain UA/UC to r/o UTI and f/u acuna cultures - ID consult Neuro 1. maintain RASS -5 for TTM 2. sedation holiday to re-assess mental status when appropriate Nephro: severe metabolic acidosis 1. anion gap lactic acidosis - with coexisting chronic respiratory acidosis from COPD - f/u repeat ABG, may require HCO3 gtt if refractory acidemia - nephro consult 2. hyperkalemia - without EKG change - received 10 units of insulin in ED - calcium gluconate 1g - lasix 40mg IV to eliminate K+ 3. CORTEZ on CKD stage 3 - received boluses of NS in ED - hold standing fluid for now due to pleural effusion - trend Cr Endo 1. NIDDM - hold oral meds - BGM Q6H and SSI Dispo: admit to ICU Code status: full code References: Mac Bullard, Nadine M, et al. Hypothermia for neuroprotection in adults after cardioipulmonary ersuscitation [employer] Syst Rev. 2012;9:[id number] TTM trial investigators. Targeted temperature management at 33 versus 36 after cardiac arrest. N Engl J Med 2013; 369:5127-6876 Case discussed with Pulm/CCM recreational director attending. Chalino Lang MD PGY3 Pager: [phone] Visit type - Emergency Visit Emergency Visit: Yes Care time: The patient presented to the Emergency Department on the above date and was hospitalized for further evaluation of their emergent condition. - New Patient This patient is new to me today: Yes Date on this admission: 11/15/18 - Critical Care Critical Care patient: Yes Total Critical Care Time (in minutes): 50 Critical Care Statement: The care of this patient involved high complexity decision making to prevent further life threatening deterioration of the patient 's condition and/or to evaluate & treat vital organ system(s) failure or risk of failure.
[2018-11-15 05:41] LABS: ARTERIAL BLOOD GAS BASE EXCESS -17.7 meq/l (-2-2); ARTERIAL BLOOD GAS PCO2 57.5 mmHg (35-45)
[2018-11-15 05:42] LABS: ALLENS TEST POSITIVE
[2018-11-15 05:44] LABS: ARTERIAL BLD GAS O2 SATURATION 53.2 % (90-98.9); ARTERIAL BLOOD GAS pH 6.99 (7.35-7.45)
[2018-11-15 05:45] LABS: ARTERIAL BLOOD GAS PO2 40.8 mmHg (68-100)
--- NOTE | 2018-11-15 05:52 | HP ---
CHIEF COMPLAINT: Cardiac arrest PCP: Dr. Carrington HISTORY OF PRESENT ILLNESS: 83 y/o F with PMHx of CABG (x 2 vessel 20 years ago), Cardiac stents x2 (On ASA and Plavix), CAD, HTN, DM, Atrial Fibrillation (on Xarelto) was BIBEMS s/p Cardiac Arrest with ROSC s/p Epinephrine x3. Patient was down for approximately 15 minutes before ROSC was achieved and patient was intubated at the scene. Patients son initially called EMS for SOB. I have called and Left message at the Son's Cell phone (Noe Fuller, ). During my interview, patient was intubated, thus the Hx is obtained by the EMR. ER course was notable for: (1) Head, C-Spine, Chest, Abdomen/Pelvis CT (2) Azithromycin, Ceftriaxone (3) 4L NS, Sodium Bicarb 8.4 (4) Vecuronium Recent Travel: Unable to obtain PAST MEDICAL HISTORY: CAD, HTN, HLD, Colitis, Shingles, DM, Atrial Fibrillation (on Xarelto) PAST SURGICAL HISTORY: CABG (x 2 vessel 20 years ago) Cardiac stents x2 (On ASA and Plavix) Hysterectomy Social History: Smoking: Quit in 1984; 1ppd x 20 yrs prior Alcohol: Socially Drugs: Unable to obtain Family History: Father: lung cancer Mother: stomach cancer Allergies amoxicillin [Amoxicillin] Adverse Reaction (Verified 11/15/18 02:31) HOME MEDICATIONS: Home Medications Medication Instructions Recorded Acetaminophen [Tylenol .Regular 650 mg PO Q6H PRN #0 tablet 06/10/15 Strength -] Albuterol Sulfate Inhaler - 1 - 2 inh PO QID PRN 06/14/18 [Ventolin HFA Inhaler -] Amlodipine Besylate 10 mg PO DAILY 06/14/18 Cholecalciferol (Vitamin D3) 50,000 unit PO DAILY 06/14/18 [Vitamin D -] Clopidogrel Bisulfate [Plavix] 75 mg PO DAILY 06/14/18 Famotidine [Pepcid] 40 mg PO DAILY 06/14/18 Fluticasone Propionate 9.9 ml NS ASDIR 06/14/18 Fluticasone/Salmeterol [Advair Hfa 1 inh PO ASDIR 06/14/18 115-21 Mcg Inhaler] Furosemide [Lasix] 40 mg PO DAILY 06/14/18 Glipizide 5 mg PO DAILY 06/14/18 Linaclotide [Linzess] 145 mcg PO DAILY 06/14/18 Mesalamine 1.2 gm PO DAILY 06/14/18 Mesalamine [Lialda] 1.2 gm PO ASDIR 06/14/18 Metoprolol Succinate 50 mg PO DAILY 06/14/18 Rosuvastatin [Crestor -] 10 mg PO DAILY 06/14/18 metFORMIN HCL [Metformin HCl] 850 mg PO ASDIR 06/14/18 Rivaroxaban [Xarelto] 15 mg PO DAILY@1800 #30 tablet 06/16/18 oxyCODONE HCL [Roxicodone -] 5 mg PO Q4H PRN #30 tablet MDD 30mg 06/16/18 REVIEW OF SYSTEMS Unable to obtain PHYSICAL EXAMINATION Vital Signs - 24 hr 11/15/18 11/15/18 11/15/18 02:19 02:20 02:25 Temperature 102.5 F H Pulse Rate 84 Pulse Rate [ Left Radial] Respiratory 7 L 16 Rate Blood Pressure 150/115 H Blood Pressure [Right Arm] O2 Sat by Pulse 71 L Oximetry (%) 11/15/18 11/15/18 11/15/18 02:30 03:00 03:30 Temperature 104.5 F H 100.9 F H Pulse Rate 115 H Pulse Rate [ 98 H 72 Left Radial] Respiratory 16 16 16 Rate Blood Pressure 150/115 H Blood Pressure 87/50 L 93/62 [Right Arm] O2 Sat by Pulse 96 96 97 Oximetry (%) 11/15/18 11/15/18 11/15/18 04:10 04:12 04:47 Temperature 100.9 F H 102.4 F H Pulse Rate Pulse Rate [ 82 72 Left Radial] Respiratory 18 18 16 Rate Blood Pressure Blood Pressure 103/57 L 89/62 L [Right Arm] O2 Sat by Pulse 98 96 Oximetry (%) 11/15/18 04:57 Temperature Pulse Rate Pulse Rate [ 83 Left Radial] Respiratory 18 Rate Blood Pressure Blood Pressure 90/47 L [Right Arm] O2 Sat by Pulse 98 Oximetry (%) GENERAL: Not awake to painful stimuli, Intubated, Lying with head of bed elevated HEAD: NCAT EYES: Pupils dilated b/l, Non reactive NECK: Wearing C-Spine Collar LUNGS: Breath sounds equal, Rhonchi throughout with upper airway sounds, Vent Settings (Rate 18, TV 400, PEEP 5, %02 100) HEART: Irregular rhythm, S1 and S2 without murmur, 3/6 murmur at LSB ABDOMEN: Obese, Soft, nontender, distended, + bowel sounds, no guarding EXTREMITIES: 2+ pulses, 1+ pitting edema. NEUROLOGICAL: Limited due to patients condition. Pharyngeal reflex intact. Pupils nonreactive. Negative Dolls eyes. babinski down going on Left, Unequivocal on right. SKIN: Cool Extremities LINES: 3 Large Bore IV's in R Hand, L AC, R Foot; Hunt Catheter; ET Tube; NG Tube Laboratory Results - last 24 hr 11/15/18 11/15/18 11/15/18 00:50 00:50 00:50 WBC 11.6 H RBC 3.47 L Hgb 10.8 Hct 35.2 MCV 101.7 H MCH 31.0 MCHC 30.5 L RDW 17.3 H Plt Count 230 D MPV 9.0 Absolute Neuts (auto) 6.9 Neutrophils % 59.1 Lymphocytes % 31.9 D Monocytes % 6.6 Eosinophils % 1.6 D Basophils % 0.8 Nucleated RBC % 0 PT with INR 13.00 INR 1.10 H PTT (Actin FS) 49.5 H Anticoagulation Therapy Puncture Site ABG pH ABG pCO2 at Pt Temp ABG pO2 at Pt Temp ABG HCO3 ABG O2 Sat (Measured) ABG O2 Content ABG Base Excess Reed Test Carboxyhemoglobin Methemoglobin O2 Delivery Device Oxygen Flow Rate Vent Mode Vent Rate Mechanical Rate PEEP Pressure Support Vent Sodium Potassium Chloride Carbon Dioxide Anion Gap BUN Creatinine Creat Clearance w eGFR Random Glucose Lactic Acid 14.3 H* Calcium Magnesium Total Bilirubin AST ALT Alkaline Phosphatase Creatine Kinase CK-MB (CK-2) Troponin I Total Protein Albumin Acetone, Qual 11/15/18 11/15/18 11/15/18 00:50 02:30 02:30 WBC RBC Hgb Hct MCV MCH MCHC RDW Plt Count MPV Absolute Neuts (auto) Neutrophils % Lymphocytes % Monocytes % Eosinophils % Basophils % Nucleated RBC % PT with INR INR PTT (Actin FS) Anticoagulation Therapy Puncture Site ABG pH ABG pCO2 at Pt Temp ABG pO2 at Pt Temp ABG HCO3 ABG O2 Sat (Measured) ABG O2 Content ABG Base Excess Reed Test Carboxyhemoglobin Methemoglobin O2 Delivery Device Oxygen Flow Rate Vent Mode Vent Rate Mechanical Rate PEEP Pressure Support Vent Sodium 136 Potassium 5.5 H Chloride 103 Carbon Dioxide 12 L Anion Gap 22 H BUN 53 H Creatinine 2.9 H Creat Clearance w eGFR 15.54 Random Glucose 495 H* Lactic Acid Calcium 7.7 L Magnesium 2.5 H Total Bilirubin 0.4 AST 197 H ALT 99 H Alkaline Phosphatase 105 Creatine Kinase 291 H CK-MB (CK-2) 8.0 H Troponin I 3.04 H* Total Protein 6.0 L Albumin 2.4 L Acetone, Qual Cancelled Negative L 11/15/18 03:30 WBC RBC Hgb Hct MCV MCH MCHC RDW Plt Count MPV Absolute Neuts (auto) Neutrophils % Lymphocytes % Monocytes % Eosinophils % Basophils % Nucleated RBC % PT with INR INR PTT (Actin FS) Anticoagulation Therapy No Result Required. Puncture Site Right radial ABG pH 6.91 L* ABG pCO2 at Pt Temp 57.5 H ABG pO2 at Pt Temp 58.4 L ABG HCO3 10.9 L* ABG O2 Sat (Measured) 67.5 L* ABG O2 Content 8.7 L* ABG Base Excess -21.0 L* Reed Test Positive Carboxyhemoglobin 0.4 L Methemoglobin 0.8 O2 Delivery Device Vent Oxygen Flow Rate 100 Vent Mode A/c Vent Rate 450 Mechanical Rate No Result Required. PEEP 5.0 Pressure Support Vent No Result Required. Sodium Potassium Chloride Carbon Dioxide Anion Gap BUN Creatinine Creat Clearance w eGFR Random Glucose Lactic Acid Calcium Magnesium Total Bilirubin AST ALT Alkaline Phosphatase Creatine Kinase CK-MB (CK-2) Troponin I Total Protein Albumin Acetone, Qual ASSESSMENT/PLAN: 83 y/o F with PMHx of CABG (x2 vessel), Cardiac stents x2 (On ASA and Plavix), HTN, DM, Atrial Fibrillation (on Xarelto) was BIBEMS s/p Cardiac Arrest with ROSC, Found to have multiorgan dysfunction on admission and will be admitted to ICU. Neuro -Hold off Sedation and assess for neuro status -May use Fentanyl push for over-breathing or Asynchronous vent -Initiate Therapeutic Hypothermia Cardio -S/P Cardiac arrest, Unknown etiology at this time -Unlikely 5.5K+ causing arrhythmia however will monitor on Tele -order Echo -Trend Cardiac Profile; Likely from demand from cardiac arrest -Cardiology consulted -Hold off on Xarelto until TH completed -Patient became Hypotensive upon arrival in ED and Received 4L NS -Hold AntiHTN meds -Low threshold to place NoreEpi Drip to maintain MAP > 65 Pulm -Intubated on mechanical Ventilation -Optimize Vent settings -Repeat ABG showing 6.99pH s/p 1 amp Bicarb -Repeat ABG Q4H -Maintain SPO2 >90% -Rocephin, Zithromax to cover for CAP -Urine Legionella antigen -Sputum cx -Pulm Consulted GI -transaminitis likley due to Hypoperfusion and Cardiac arrest -Monitor LFTs -Initiate Diabetic feeds via NGT once stable Endocrine -S/P 10 U Novolog -ISS BGMs ACHS -Diabetic feeds when possible Renal -Acute on CKD likely from hypoperfusion -CT Scan noted -Hyperkalemia will likely correct with insulin -Maintain hunt, Strict I&Os -Monitor Urine output -Nephrology Consulted ID -Fever differential for infection vs Central -Blood, urine and sputum cx pending -Continue Rocephin, Zithromax -Trend Lactic Acid -ID Consulted FEN -S/P 4L NS in ED; Avoid overhydration -Lytes as above -Diabetic tube feeds when stable Dispo: Admit to ICU, will need Med-Rec Code Status: Full Code Visit type - Emergency Visit Emergency Visit: Yes ED Registration Date: 11/15/18 Care time: The patient presented to the Emergency Department on the above date and was hospitalized for further evaluation of their emergent condition. - New Patient This patient is new to me today: Yes Date on this admission: 11/16/18 - Critical Care Critical Care patient: Yes Total Critical Care Time (in minutes): 45 Critical Care Statement: The care of this patient involved high complexity decision making to prevent further life threatening deterioration of the patient 's condition and/or to evaluate & treat vital organ system(s) failure or risk of failure.
--- NOTE | 2018-11-15 06:33 | PN ---
Teaching Attending Note Name of Resident: Elke Miles ATTENDING PHYSICIAN STATEMENT I saw and evaluated the patient. Chart, data, imaging reviewed. I reviewed the resident's note and discussed the case with the resident. I agree with the resident's findings and plan as documented. Patient is intubated and sedated so history obtained from EMR. SUBJECTIVE: 83 y/o F with PMHx of CABG (x 2 vessel 20 years ago), Cardiac stents x2 (On ASA and Plavix), CAD, HTN, DM, Atrial Fibrillation (on Xarelto) was BIBEMS s/p Cardiac Arrest with ROSC s/p Epinephrine x3. Patient was down for approximately 15 minutes before ROSC was achieved. Patient brought in the hospital already intubated OBJECTIVE: Last Vital Signs Temp Pulse Resp BP Pulse Ox 102.4 F H 83 18 90/47 L 98 11/15/18 04:47 11/15/18 04:57 11/15/18 04:57 11/15/18 04:57 11/15/18 04:57 general- intubated, sedated heent- et tube in place neck -no neck masses cv -s1+s2+rrr chest b/l air entry sounds abdomen- soft, nt, bs decreased ext- left lower ext with central line in groin Abnormal Lab Results 11/15/18 11/15/18 11/15/18 00:50 00:50 00:50 WBC 11.6 H RBC 3.47 L MCV 101.7 H MCHC 30.5 L RDW 17.3 H INR 1.10 H PTT (Actin FS) 49.5 H ABG pH ABG pCO2 at Pt Temp ABG pO2 at Pt Temp ABG HCO3 ABG O2 Sat (Measured) ABG O2 Content ABG Base Excess Carboxyhemoglobin Potassium Carbon Dioxide Anion Gap BUN Creatinine Random Glucose Lactic Acid 14.3 H* Calcium Magnesium AST ALT Creatine Kinase CK-MB (CK-2) Troponin I Total Protein Albumin Acetone, Qual 11/15/18 11/15/18 11/15/18 02:30 02:30 03:30 WBC RBC MCV MCHC RDW INR PTT (Actin FS) ABG pH 6.91 L* ABG pCO2 at Pt Temp 57.5 H ABG pO2 at Pt Temp 58.4 L ABG HCO3 10.9 L* ABG O2 Sat (Measured) 67.5 L* ABG O2 Content 8.7 L* ABG Base Excess -21.0 L* Carboxyhemoglobin 0.4 L Potassium 5.5 H Carbon Dioxide 12 L Anion Gap 22 H BUN 53 H Creatinine 2.9 H Random Glucose 495 H* Lactic Acid Calcium 7.7 L Magnesium 2.5 H AST 197 H ALT 99 H Creatine Kinase 291 H CK-MB (CK-2) 8.0 H Troponin I 3.04 H* Total Protein 6.0 L Albumin 2.4 L Acetone, Qual Negative L 11/15/18 05:24 WBC RBC MCV MCHC RDW INR PTT (Actin FS) ABG pH 6.99 L* ABG pCO2 at Pt Temp 57.5 H ABG pO2 at Pt Temp 40.8 L* D ABG HCO3 13.1 L* ABG O2 Sat (Measured) 53.2 L* ABG O2 Content 7.1 L* ABG Base Excess -17.7 L* Carboxyhemoglobin Potassium Carbon Dioxide Anion Gap BUN Creatinine Random Glucose Lactic Acid Calcium Magnesium AST ALT Creatine Kinase CK-MB (CK-2) Troponin I Total Protein Albumin Acetone, Qual imaging studies reviewed EKG -no signs of acute ST wave changes ASSESSMENT AND PLAN: #83yo woman s/p cardiac arrest with ROSC, septic shock, respiratory failure, MODS, including CORTEZ on CKD, shocked liver, cardiac demand ischemia, HAGMA, high lactic acidosis. Uncertain etiology of cardiac arrest but may have been hyperkalemia. CAP with probable parapneumonic pleural effusions. -admit to ICU -c/w mechanical ventilation -repeat ABG -hypothermia protocol- post cardiac arrest -correct any electrolytes disturbances -IV fluid hydration -pressor support via central line -repeat lactate, chemistry panel -ceftriaxone, azithromycin for CAP -sputum culture, blood culture, urine culture -urine legionella ag -i/o -daily weights -avoid nephrotoxins -await official reads of imaging studies -maintain FS <180mg/dl -c/w xarelto for afib -cardiac, renal, ID consults
[2018-11-15] MEDS ORDERED: NOREPINEPHRINE BITARTRATE 4 MG/4 ML ML IV ONE (06:48)
[2018-11-15] MEDS ORDERED: VECURONIUM BROMIDE 10 MG VIAL ONE (06:57)
[2018-11-15] MEDS: PROPOFOL 1,000,000 MCG/100 ML VIAL IVPB SCH ×2 (07:10→23:34)
[2018-11-15] MEDS: NOREPINEPHRINE BITARTRATE 8,000 MCG in DEXTROSE 5%-WATER - 492 ML IV SCH (07:11)
--- NOTE | 2018-11-15 07:47 | PN ---
Physical Exam: SUBJECTIVE: Patient seen and examined. Patient intubated and sedated OBJECTIVE: Vital Signs Period Temp Pulse Resp BP Sys/[place] Pulse Ox Last 24 Hr 100.9 F-104.5 F 72-115 7-23 86-150/31-115 71-98 GENERAL: Sedated HEAD: No signs of trauma, normocephalic, atraumatic EYES: B/l pupil dilated; L minimally sluggish ENT: ETT and NGT in place LUNGS: B/l coarse breath sounds HEART: Regular rate w/ irregularly irregular rhythm; no murmurs appreciated, peripheral pulses normal and equal bilaterally ABDOMEN: Soft, distended, normoactive bowel sounds EXTREMITIES: cool to touch, no open wounds NEUROLOGICAL: Sedated, b/l dilated pupils SKIN: cool, dry Active Medications Generic Name Dose Route Start Last Admin Trade Name Freq PRN Reason Stop Dose Admin Calcium Gluconate 1,000 mg 11/15/18 07:28 Calcium Gluconate 10% - IVPB 11/15/18 07:29 ONCE ONE Chlorhexidine Gluconate 1 applic 11/15/18 22:00 Hibiclens For Decolonization - TP HS YOAN Furosemide 40 mg 11/15/18 07:23 Lasix Injection - IVPUSH 11/15/18 07:24 ONCE ONE Vecuronium [place] 50 mg/ 250 mls @ 27.21 mls/hr 11/15/18 03:15 11/15/18 03: 45 Dextrose IVPB Not Given TITR YOAN 1 MCG/KG/MIN Propofol 1,000,000 mcg in 100 mls @ 2.722 mls/hr 11/15/18 06:30 11/15/18 07: 10 Diprivan - IVPB 5 mcg/kg/min TITR YOAN 2.722 mls/hr Administration Protocol 5 MCG/KG/MIN Vecuronium [place] 50 mg/ 250 mls @ 27.21 mls/hr 11/15/18 06:30 Dextrose IVPB TITR YOAN 1 MCG/KG/MIN Azithromycin 500 mg/ Dextrose 250 mls @ 250 mls/hr 11/16/18 10:00 IVPB DAILY YOAN Ceftriaxone Sodium 500 mg/ 50 mls @ 100 mls/hr 11/15/18 10:00 Dextrose IVPB DAILY YOAN Protocol Norepinephrine Bitartrate 8, 500 mls @ 10.2 mls/hr 11/15/18 06:45 11/15/18 07 :11 000 mcg/ Dextrose IV 0.03 mcg/kg/min ASDIR YOAN 10.2 mls/hr Administration Protocol 0.03 MCG/KG/MIN Insulin Aspart 1 vial 11/15/18 06:30 Novolog Vial Sliding Scale - SQ Q6H [facility] Protocol Mupirocin 1 applic 11/15/18 10:00 Bactroban Ointment (For Decolonization) - NS 11/20/18 09:59 BID [facility] ASSESSMENT/PLAN: The patient is an 83F w/ a history of CAD s/p stent x2, HTN, A-fib (plavix/ASA) , COPD (3L NC at home), HLD, and colitis who presented s/p cardiac arrest by EMS. The patient was found to be in severe metabolic and respiratory acidosis likely 2/2 septic shock and hypercapnic/hypoxic respiratory failure. Neuro Sedation -Propofol -Maintain RASS -5 for TTM HEENT ETT - 11/15/2018 NGT - 11/15/2018 CV s/p Cardiac Arrest -Targeted Temperature Management initiated -Trop I 3, repeat pending -s/p Ca Gluconate A-fib -rate controlled -cont. xarelto -hold beta humphrey Severe tricuspid regurg. with pulm. HTN -Repeat ECHO pending Hypotension -Levophed, titrated to MAP > 65 Hx HTN -Anti-hypertensives held CAD -Cont. Plavix PULM Hypercapnic/hypoxic respiratory failure -s/p intubation -PRVC 400/18/5/100% -Repeat ABG at 0800 Pulmonary edema -S/p Lasix 40mg IV once PNA/pulm infiltrates -Urine Legionella antigen -Sputum cx GI Transaminitis -Likely 2/2 cardiac arrest Nutrition -NGT in place -Will initiate TF as pressors weaned Johnson in place -Strict I/O Acute on chronic CKD -Likely 2/2 hypoperfusion -s/p 4L NS, BNP pending -will CTM and IVF as needed Lactic acidosis -s/p 4L IVF, will repeat and cont. resuscitation HEME Anemia -Hgb 10, no need to transfuse at this time, will CTM ID Febrile (Tm 104) Likely sepsis 2/2 aspiration PNA/CAP -Will start Vanc/Cefepime/Clinda -Blood, Urine, Sputum Cx pending ENDO T2DM -BG 500 -ISS -AG 22, acetone pending LTD ETT - 11/15/2018 NGT - 11/15/2018 LFem - 11/15/2018 Dispo: Patient will continue to require ICU level of care. Prognosis guarded Code Status: Full Code Visit type - Emergency Visit Emergency Visit: Yes ED Registration Date: 11/15/18 Care time: The patient presented to the Emergency Department on the above date and was hospitalized for further evaluation of their emergent condition. - New Patient This patient is new to me today: Yes Date on this admission: 11/15/18 - Critical Care Critical Care patient: Yes Total Critical Care Time (in minutes): 45 Critical Care Statement: The care of this patient involved high complexity decision making to prevent further life threatening deterioration of the patient 's condition and/or to evaluate & treat vital organ system(s) failure or risk of failure.
[2018-11-15 08:00] LABS: BASO % 0.4 % (0-2.0); EOS % 0.3 % (0-4.5); HEMATOCRIT 31.9 % (32.4-45.2); HEMOGLOBIN 9.7 GM/dL (10.7-15.3); LYMPH % 8.8 % (8-40); MCH 29.2 pg (25.7-33.7); MCHC 30.5 g/dl (32.0-36.0); MEAN CELL VOLUME 95.8 fl (80-96); NEUT % 88.5 % (42.8-82.8); PLATELET COUNT 174 K/MM3 (134-434); RBC 3.34 M/mm3 (3.60-5.2); WHITE BLOOD COUNT 13.9 K/mm3 (4.0-10.0)
[2018-11-15 08:15] LABS: INR 1.45 (0.83-1.09); PROTHROMBIN TIME (PATIENT) 17.2 SEC (9.7-13.0)
[2018-11-15 08:18] LABS: ACTIVATED PTT 34.9 SECONDS (25.2-36.5)
[2018-11-15] MEDS ORDERED: FUROSEMIDE 40 MG/4 ML INJECTABLE VIAL IVPUSH ONE (08:30)
[2018-11-15] MEDS: FENTANYL INJECTION 500 MCG in SODIUM CHLORIDE 90 ML IVPB SCH (08:35)
[2018-11-15] MEDS: FENTANYL INJECTION 500 MCG in SODIUM CHLORIDE 100 ML IVPB SCH ×2 (08:35→16:17)
[2018-11-15] MEDS ORDERED: CALCIUM GLUCONATE 10% - 1,000 MG/10 ML VIAL IVPB ONE ×3 (08:45→23:45)
--- NOTE | 2018-11-15 08:48 | PN ---
Progress Note (short form) - Note Progress Note: ID consult dictated imp/reccd s/p cardiopulmonary arrest multiorgan failure sepsis pneumonia uti DKA acute MS anoxia ampicillin allergy intubated unresponsive empiric antibiotics to cover for sepsis and pneumonia/uti got rocephin and zithromax earlier today add vancomycin one time clindaymcin/cefepime for possible aspiration overall prognosis is grim over 45 minutes spent in the care of this critically ill ICU patient Problem List - Problems (1) Cardiopulmonary arrest Code(s): I46.9 - CARDIAC ARREST, CAUSE UNSPECIFIED (2) Multiorgan failure Code(s): GLT0447 - (3) Sepsis Code(s): A41.9 - SEPSIS, UNSPECIFIED ORGANISM (4) Myocardial infarction acute Code(s): I21.9 - ACUTE MYOCARDIAL INFARCTION, UNSPECIFIED
[2018-11-15 08:56] LABS: ALBUMIN 2.2 g/dl (3.4-5.0); ALK PHOS 154 U/L (45-117); ANION GAP 14 MMOL/L (8-16); BILIRUBIN,TOTAL 0.6 mg/dL (0.2-1); BLOOD UREA NITROGEN 53 mg/dL (7-18); CHLORIDE 111 mmol/L (98-107); CO2 14 mmol/L (21-32); CREATININE 2.9 mg/dL (0.55-1.3); GLUCOSE,RANDOM 265 mg/dL (74-106); MAGNESIUM 2.2 mg/dL (1.8-2.4); N-TERMINAL BNP 9636.5 pg/ml (5-450); PHOSPHOROUS 6.5 mg/dL (2.5-4.9); POTASSIUM 4.8 mmol/L (3.5-5.1); SGOT/AST 825 U/L (15-37); SGPT/ALT 252 U/L (13-61); SODIUM 139 mmol/L (136-145); TOT PROT 5.2 g/dl (6.4-8.2)
[2018-11-15 08:58] LABS: CALCIUM 6.1 mg/dL (8.5-10.1)
[2018-11-15] MEDS ORDERED: PIPERACILLIN/TAZOB 4.5 GM 4.5 GM in DEXTROSE 5%-WATER 100 ML IVPB ONE (09:00)
[2018-11-15] MEDS ORDERED: fentaNYL CITRATE 250 MCG/5 ML VIAL ONE ×2 (09:17→21:34)
[2018-11-15] MEDS: INSULIN SLIDING SCALE (NOVOLOG) 1 VIAL SQ SCH ×3 (09:18→17:30)
[2018-11-15] MEDS ORDERED: VANCOMYCIN 1 GM in D5W (PRE-DOCKED) 1,000 MG/250 ML IVPB ONE (09:30)
[2018-11-15] MEDS: MUPIROCIN 2% TOPICAL OINTMENT FOR DECOLONIZATION NS SCH ×2 (09:47→23:30)
[2018-11-15] MEDS: CLINDAMYCIN 600MG PREMIX IVPB 600 MG/50 ML BAG IVPB SCH ×2 (09:48→17:30)
[2018-11-15] MEDS ORDERED: CLOPIDOGREL BISULFATE 75 MG TABLET (FP) PO SCH (10:00)
[2018-11-15] MEDS ORDERED: CEFTRIAXONE 500 MG in DEXTROSE 5%-WATER - 50 ML IVPB SCH (10:00)
[2018-11-15] MEDS ORDERED: ASPIRIN 81 MG CHEWABLE TABLETS PO ONE (10:03)
--- NOTE | 2018-11-15 10:23 | PN ---
Teaching Attending Note Name of Resident: Piotr Garcia ATTENDING PHYSICIAN STATEMENT I saw and evaluated the patient. I reviewed the resident's note and discussed the case with the resident. I agree with the resident's findings and plan as documented. SUBJECTIVE: Pt seen and examined in the ICU. Currently intubated, sedated, tachypneic on hypothermia protocol. On levophed gtt. Troponin now 47. OBJECTIVE: Vital Signs Period Temp Pulse Resp BP Sys/[place] Pulse Ox Last 24 Hr 100.9 F-104.5 F 72-115 7-23 86-150/31-115 71-98 Intake & Output 11/12/18 11/13/18 11/14/18 11/15/18 23:59 23:59 23:59 23:59 Weight 90.718 kg Gen: intubated, sedated, tachypneic Heart: tachycardic, regular Lung: scattered rhonchi Abd: soft, nontender Ext: no edema CBC, BMP 11/15/18 07:46 11/15/18 07:46 Active Medications Chlorhexidine Gluconate (Hibiclens For Decolonization -) 1 applic TP HS YOAN Clopidogrel Bisulfate (Plavix -) 75 mg PO DAILY YOAN Last Admin: 11/15/18 09:48 Dose: 75 mg Vecuronium [place] 50 mg/ (Dextrose) 250 mls @ 27.21 mls/hr IVPB TITR YOAN Last Admin: 11/15/18 03:45 Dose: Not Given Propofol (Diprivan -) 1,000,000 mcg in 100 mls @ 2.722 mls/hr IVPB TITR YOAN; Protocol Last Admin: 11/15/18 07:10 Dose: 5 mcg/kg/min, 2.722 mls/hr Vecuronium [place] 50 mg/ (Dextrose) 250 mls @ 27.21 mls/hr IVPB TITR YOAN Norepinephrine Bitartrate 8, (000 mcg/ Dextrose) 500 mls @ 10.2 mls/hr IV ASDIR YOAN; Protocol Last Admin: 11/15/18 07:11 Dose: 0.03 mcg/kg/min, 10.2 mls/hr Clindamycin Phosphate (Cleocin 600 Mg Premix Ivpb -) 600 mg in 50 mls @ 100 mls /hr IVPB Q8H-IV YOAN; Protocol Last Admin: 11/15/18 09:48 Dose: 100 mls/hr Cefepime HCl 2 gm/ Dextrose 100 mls @ 100 mls/hr IVPB Q24H [facility]; Protocol Sodium Bicarbonate 150 meq/ (Dextrose) 1,150 mls @ 125 mls/hr IV Q9H [facility] Insulin Aspart (Novolog Vial Sliding Scale -) 1 vial SQ Q6H [facility]; Protocol Last Admin: 11/15/18 09:18 Dose: 8 units Mupirocin (Bactroban Ointment (For Decolonization) -) 1 applic NS BID YOAN Stop: 11/20/18 09:59 Last Admin: 11/15/18 09:47 Dose: 1 applic Pantoprazole Sodium (Protonix Iv) 40 mg IVPUSH BID YOAN Rivaroxaban (Xarelto) 15 mg PO DAILY@1800 YOAN ASSESSMENT AND PLAN: s/p Cardiopulmonary Arrest Acute on Chronic Hypoxic Respiratory Failure CAD Acute NSTEMI Pneumonia Septic vs Cardiogenic Shock Acute on Chronic Renal Failure Lactic Acidosis/Severe Metabolic Acidosis Elevated LFTs likely Ischemic Injury r/o Anoxic Encephalopathy Atrial Fibrillation Pulmonary HTN HTN COPD DM Hyperlipidemia - IV antibiotics - f/u cultures - hypothermia protocol in progress - trend cardiac enzymes - echocardiogram - ASA, plavix - continue anticoagulation - beta humphrey when BP tolerates - adjusted vent settings - inhaled bronchodilators - empiric medrol for history of COPD - bicarb gtt - monitor urine output, creatinine - monitor ABG - trend lactate, LFTs - continue volume assist control - when hypothermia protocol complete, lighten sedation to assess mental status - DVT/GI prophylaxis - prognosis guarded - ICU monitoring critical care time spent in reviewing chart, evaluating patient and formulating plan 35 min
[2018-11-15] MEDS: PANTOPRAZOLE SODIUM 40 MG VIAL IVPUSH SCH ×2 (10:57→23:32)
[2018-11-15] MEDS: methylPREDNISolone NA SUCC 40 MG/1 ML VIAL IVPUSH SCH ×2 (10:57→17:30)
[2018-11-15] MEDS ORDERED: SODIUM CHLORIDE IVPB SCH (11:00)
[2018-11-15] MEDS ORDERED: FENTANYL IVPB SCH (11:00)
[2018-11-15 11:20] LABS: ANISOCYTOSIS 1+; MACROCYTOSIS 1+; OVALOCYTE 1+; PLATELET ESTIMATE NORMAL
[2018-11-15 11:26] VITALS: BMI 32.0
--- NOTE | 2018-11-15 11:33 | CONS ---
DATE OF CONSULTATION: REQUESTED BY: Hospitalist service. This is an 83-year-old woman who presented early this morning to the emergency room. She has a history of coronary artery disease, cardiac stents, atrial fibrillation. She called EMS because she was short of breath earlier this morning. She arrested while apparently in the presence of EMS. She was coded for 15 minutes and received epinephrine x3. She was brought to the hospital already intubated. She was started on pressors for hypotension. She was found to have fever. She had cultures sent and was given ceftriaxone and Zithromax in the emergency room. She arrived in the ICU this morning at 7 a.m. She was also noted to have a glucose of almost 500 with a bicarbonate of 12, lactic acid was 14.3 on admission. She is currently unresponsive, in multi-organ failure. I am asked to comment on antibiotic management. Her past medical history is notable for history of coronary artery disease, hypertension, diabetes, atrial fibrillation. She has a history of zoster in the past as well as hyperlipidemia. She was last admitted to [facility] in May of this year, when she fractured her humerus and had new-onset atrial fibrillation. She is apparently on Eliquis as an outpatient. Her surgical history is notable for CABG x2 vessels 20 years ago. She has 2 cardiac stents. She has had a section and a hysterectomy. For COPD, she requires oxygen at home. SOCIAL HISTORY: She is a former smoker, she quit 30 years ago. There is no history of any other substance use. She lives alone and has support service. She is allergic to AMOXICILLIN; the nature of the allergy is not known. Her medications at home include Xarelto, Plavix, Roxicodone, metformin, Crestor, metoprolol, Lialda, Linzess, glipizide, Lasix, Advair, fluticasone, famotidine, vitamin D, amlodipine, albuterol inhaler. Review of systems is not obtainable at this time. PHYSICAL EXAMINATION: General: She is unresponsive. She is intubated. Vital Signs: Her T-max was 104.5, currently 102.4. Blood pressure is 86/31. Pulse of 84. Respiratory rate 23. HEENT: Her pupils are fixed and dilated. She is orally intubated. Lungs: Her lungs have bibasilar crackles. Heart: Regular rate and rhythm. Abdomen: Soft, nontender. Extremities: Cool. Her labs are notable for a white count on admission of 11.6, later this morning 13.9, hemoglobin 9.7, platelets of 174. Her blood gas has a pH of 6.99. Her BUN 53 and creatinine 2.9, with a glucose this morning of 495, now 265. Lactic acid was 14.3, it is now 8.2. LFTs are up, with an AST of 825, ALT of 252, alkaline phosphatase 154. Troponin was 3 and it is now 47. Urinalysis was 2+ leukocytes with 40 white cells. Imaging studies reveal on chest x-ray she has progressive congestive changes with questionable infiltrate at the bases. There are sternal sutures and an ET tube in place. Cervical spine, she has no fractures. Head CT shows no evidence of acute infarct or bleed. CT of the abdomen, pelvis and chest are notable for mediastinal adenopathy, moderate bilateral effusions, with multifocal consolidations, cardiomegaly, acute fracture of the left 4th through 6th ribs, acute fracture of the right humeral head, possible mild edema of the head of pancreas. In summary, this is an 83-year-old woman admitted status post cardiopulmonary arrest with multiorgan failure, sepsis, pneumonia, UTI, DKA, acute OH, anoxia, AMPICILLIN allergy. She is intubated and unresponsive. Would treat her empirically with antibiotics that cover for sepsis, pneumonia, and UTI. She got Rocephin and Zithromax earlier today. Would add vancomycin, clindamycin, and cefepime, for possible aspiration, given her PENICILLIN, allergy, adjust for her renal failure. Would obtain Legionella urinary antigen, sputum cultures. Blood cultures have been sent. Overall prognosis is grim. Over 45 minutes spent in the care of this critically ill ICU patient. JAKE CORCORAN M.D. [id number]
--- NOTE | 2018-11-15 11:54 | CON.CARD ---
Consult Consult Specialty:: cardiology Reason for Consultation:: cardiac arrest - History of Present Illness Chief Complaint: intubated; sedated History of Present Illness: Patient is an 83 year old white female with a PMH of colitis, diabetes, hypertension, hypercholesterolemia, cardiac stent x2 (on aspirin and Plavix), on 3L O2 who was BIBEMS s/p cardiac arrest with ROSC. EMS initially called for shortness of breath. While being transported from her house to the ambulance patient went to cardiac arrest, Epinephrine x3, was down for approximately 15 minutes before ROSC. At presentation to our ED patient intubated, hypertensive (150/115), BS > 500. - History Source History Provided By: Medical Record Limitations to Obtaining History: Unresponsive - Past Medical History Cardio/Vascular: Yes: CAD, CHF, HTN, Hyperlipdemia Pulmonary: Yes: Pneumonia Gastrointestinal: Yes: Other (colitis) Infectious Disease: Yes: Other (shingles) Endocrine: Yes: Diabetes Mellitus - Past Surgical History Past Surgical History: Yes: CABG (x2 vessel 20yrs ago, cardiac stents x2), C- Section, Hysterectomy - Alcohol/Substance Use Hx Alcohol Use: No History of Substance Use: reports: None - Smoking History Smoking history: Unknown if ever smoked Have you smoked in the past 12 months: No Aproximately how many cigarettes per day: 26 If you are a former smoker, when did you quit?: 1984 - Social History ADL: Support Services History of Recent Travel: No Home Medications - Allergies Allergies/Adverse Reactions: Allergies Allergy/AdvReac Type Severity Reaction Status Date / Time amoxicillin [Amoxicillin] AdvReac Verified 11/15/18 02:31 - Home Medications Home Medications: Ambulatory Orders Acetaminophen [Tylenol .Regular Strength -] 650 mg PO Q6H PRN #0 tablet Albuterol Sulfate Inhaler - [Ventolin HFA Inhaler -] 1 - 2 inh PO QID PRN Amlodipine Besylate 10 mg PO DAILY 06/14/18 Cholecalciferol (Vitamin D3) [Vitamin D -] 50,000 unit PO DAILY 06/14/18 Clopidogrel Bisulfate [Plavix] 75 mg PO DAILY 06/14/18 Famotidine [Pepcid] 40 mg PO DAILY 06/14/18 Fluticasone Propionate 9.9 ml NS ASDIR 06/14/18 Fluticasone/Salmeterol [Advair Hfa 115-21 Mcg Inhaler] 1 inh PO ASDIR 06/14/18 Furosemide [Lasix] 40 mg PO DAILY 06/14/18 Glipizide 5 mg PO DAILY 06/14/18 Linaclotide [Linzess] 145 mcg PO DAILY 06/14/18 Mesalamine 1.2 gm PO DAILY 06/14/18 Mesalamine [Lialda] 1.2 gm PO ASDIR 06/14/18 Metoprolol Succinate 50 mg PO DAILY 06/14/18 Rosuvastatin [Crestor -] 10 mg PO DAILY 06/14/18 metFORMIN HCL [Metformin HCl] 850 mg PO ASDIR 06/14/18 Rivaroxaban [Xarelto] 15 mg PO DAILY@1800 #30 tablet 06/16/18 oxyCODONE HCL [Roxicodone -] 5 mg PO Q4H PRN #30 tablet MDD 30mg 06/16/18 Family Disease History - Family Disease History Family Disease History: CA: Father (lung cancer), Mother (stomach cancer) Review of Systems Unable to obtain ROS, reason: intubated; sedated; unres - Risk Factors Known Risk Factors: Yes: Age, Hypercholesterolemia, Hypertension, Physical Inactivity Vital Signs: Vital Signs Temperature 98.2 F 11/15/18 11:15 Pulse Rate 76 11/15/18 11:15 Respiratory Rate 22 H 11/15/18 11:15 Blood Pressure 92/47 L 11/15/18 11:15 O2 Sat by Pulse Oximetry (%) 98 11/15/18 07:00 Constitutional: Yes: Obese, Other Eyes: Yes: Other (pupils large, wih little reaction to light) HENT: Yes: Other Neck: Yes: Decreased ROM Respiratory: Yes: Intubated, Mechanically Ventilated Gastrointestinal: Yes: Soft, Distention (tympanic) Renal/: Yes: Oliguria (only 5 cc urine output in past several hours) Cardiovascular: Yes: Pulse Irregular JVD: Yes Carotid Bruit: No PMI: Displaced Heart Sounds: Yes: S1 (varies in intenstiy) Murmur: Yes: Systolic Murmur, Grade 2 Musculoskeletal: Yes: Muscle Weakness Extremities: Yes: Cool Edema: No Peripheral Pulses WNL: Yes Integumentary: Yes: Incision (central vertical surgical scar (s/p CABG)), Venous Stasis Changes Neurological: Yes: Unresponsive Psychiatric: Yes: Other - Other Data Labs, Other Data: CBC, BMP 11/15/18 07:46 11/15/18 07:46 INR, PTT INR 1.45 (0.83-1.09) H 11/15/18 07:46 Troponin, BNP 11/15/18 11/15/18 02:30 07:46 Troponin I 3.04 H* 47.10 H* B-Natriuretic Peptide 9636.5 H Troponin, BNP 11/15/18 11/15/18 02:30 07:46 Troponin I 3.04 H* 47.10 H* B-Natriuretic Peptide 9636.5 H Abnormal Lab Results 11/15/18 11/15/18 11/15/18 00:50 00:50 00:50 WBC 11.6 H RBC 3.47 L Hgb Hct MCV 101.7 H MCHC 30.5 L RDW 17.3 H Absolute Neuts (auto) Neutrophils % Lymphocytes % (Manual) Monocytes % Monocytes % (Manual) PT with INR INR 1.10 H PTT (Actin FS) 49.5 H ABG pH ABG pCO2 at Pt Temp ABG pO2 at Pt Temp ABG HCO3 ABG O2 Sat (Measured) ABG O2 Content ABG Base Excess Carboxyhemoglobin Potassium Chloride Carbon Dioxide Anion Gap BUN Creatinine Random Glucose Lactic Acid 14.3 H* Calcium Phosphorus Magnesium AST ALT Alkaline Phosphatase Creatine Kinase Creatine Kinase Index CK-MB (CK-2) Troponin I B-Natriuretic Peptide Total Protein Albumin Acetone, Qual Antibody Screen 11/15/18 11/15/18 11/15/18 02:30 02:30 02:30 WBC RBC Hgb Hct MCV MCHC RDW Absolute Neuts (auto) Neutrophils % Lymphocytes % (Manual) Monocytes % Monocytes % (Manual) PT with INR INR PTT (Actin FS) ABG pH ABG pCO2 at Pt Temp ABG pO2 at Pt Temp ABG HCO3 ABG O2 Sat (Measured) ABG O2 Content ABG Base Excess Carboxyhemoglobin Potassium 5.5 H Chloride Carbon Dioxide 12 L Anion Gap 22 H BUN 53 H Creatinine 2.9 H Random Glucose 495 H* Lactic Acid Calcium 7.7 L Phosphorus Magnesium 2.5 H AST 197 H ALT 99 H Alkaline Phosphatase Creatine Kinase 291 H Creatine Kinase Index CK-MB (CK-2) 8.0 H Troponin I 3.04 H* B-Natriuretic Peptide Total Protein 6.0 L Albumin 2.4 L Acetone, Qual Negative L Antibody Screen Positive H 11/15/18 11/15/18 11/15/18 03:30 05:24 07:46 WBC RBC Hgb Hct MCV MCHC RDW Absolute Neuts (auto) Neutrophils % Lymphocytes % (Manual) Monocytes % Monocytes % (Manual) PT with INR INR PTT (Actin FS) ABG pH 6.91 L* 6.99 L* ABG pCO2 at Pt Temp 57.5 H 57.5 H ABG pO2 at Pt Temp 58.4 L 40.8 L* D ABG HCO3 10.9 L* 13.1 L* ABG O2 Sat (Measured) 67.5 L* 53.2 L* ABG O2 Content 8.7 L* 7.1 L* ABG Base Excess -21.0 L* -17.7 L* Carboxyhemoglobin 0.4 L Potassium Chloride Carbon Dioxide Anion Gap BUN Creatinine Random Glucose Lactic Acid 8.2 H* Calcium Phosphorus Magnesium AST ALT Alkaline Phosphatase Creatine Kinase Creatine Kinase Index CK-MB (CK-2) Troponin I B-Natriuretic Peptide Total Protein Albumin Acetone, Qual Antibody Screen 11/15/18 11/15/18 11/15/18 07:46 07:46 07:46 WBC 13.9 H RBC 3.34 L Hgb 9.7 L Hct 31.9 L MCV MCHC 30.5 L RDW 16.0 H Absolute Neuts (auto) 12.3 H Neutrophils % 88.5 H D Lymphocytes % (Manual) 4.0 L Monocytes % 2.0 L Monocytes % (Manual) 0 L PT with INR 17.20 H INR 1.45 H PTT (Actin FS) ABG pH ABG pCO2 at Pt Temp ABG pO2 at Pt Temp ABG HCO3 ABG O2 Sat (Measured) ABG O2 Content ABG Base Excess Carboxyhemoglobin Potassium Chloride 111 H Carbon Dioxide 14 L Anion Gap BUN 53 H Creatinine 2.9 H Random Glucose 265 H Lactic Acid Calcium 6.1 L* Phosphorus 6.5 H Magnesium AST 825 H ALT 252 H Alkaline Phosphatase 154 H Creatine Kinase 754 H Creatine Kinase Index 5.9 H CK-MB (CK-2) 45.1 H Troponin I 47.10 H* B-Natriuretic Peptide 9636.5 H Total Protein 5.2 L Albumin 2.2 L Acetone, Qual Antibody Screen 11/15/18 11:55 WBC RBC Hgb Hct MCV MCHC RDW Absolute Neuts (auto) Neutrophils % Lymphocytes % (Manual) Monocytes % Monocytes % (Manual) PT with INR INR PTT (Actin FS) ABG pH 7.12 L* ABG pCO2 at Pt Temp ABG pO2 at Pt Temp ABG HCO3 12.6 L* ABG O2 Sat (Measured) ABG O2 Content 13.5 L ABG Base Excess -15.6 L* Carboxyhemoglobin Potassium Chloride Carbon Dioxide Anion Gap BUN Creatinine Random Glucose Lactic Acid Calcium Phosphorus Magnesium AST ALT Alkaline Phosphatase Creatine Kinase Creatine Kinase Index CK-MB (CK-2) Troponin I B-Natriuretic Peptide Total Protein Albumin Acetone, Qual Antibody Screen Echo: Image Reviewed Prior Cardiac Procedures: CABG, Cardiac Catheterization, PTCA with Stent Imaging - Results Chest X-ray: Image Reviewed (rotated image; enlarged heart; widened mediastinum ; marked CHF) Problem List - Problems (1) Acute on chronic diastolic CHF (congestive heart failure) Assessment/Plan: Normal LV size; unable to asess LVEF on most recent ECHO in hospital; will repeat. Severe pulmonary HTN. Hypotensive-->IV norepinephrine. Almost no urine output (Johnson) despite at least 4 liters IVF in ER. F/u BUN/Cr, electrlytes, daily weight, Is and Os. Code(s): I50.33 - ACUTE ON CHRONIC DIASTOLIC (CONGESTIVE) HEART FAILURE (2) Cardiopulmonary arrest Code(s): I46.9 - CARDIAC ARREST, CAUSE UNSPECIFIED (3) Atrial fibrillation Assessment/Plan: On metoprolol ER and rivaroxaban at home. Would use IV hpearin presently instead of DOAC until more stable and long-term management known. Code(s): I48.91 - UNSPECIFIED ATRIAL FIBRILLATION (4) CAD (coronary artery disease) Code(s): I25.10 - ATHSCL HEART DISEASE OF [place] CORONARY ARTERY W/O ANG PCTRS Qualifiers: Coronary Disease-Associated Artery/Lesion type: unspecified vessel or lesion type [place] vs. transplanted heart: [place] heart Associated angina: without angina Qualified Code(s): I25.10 - Atherosclerotic heart disease of [place] coronary artery without angina pectoris (5) CKD (chronic kidney disease) Assessment/Plan: essentially anuric despite several liters of fluid. 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 Code(s): N18.9 - CHRONIC KIDNEY DISEASE, UNSPECIFIED (6) COPD (chronic obstructive pulmonary disease) Code(s): J44.9 - CHRONIC OBSTRUCTIVE PULMONARY DISEASE, UNSPECIFIED (7) Chronic respiratory failure with hypoxia Code(s): J96.11 - CHRONIC RESPIRATORY FAILURE WITH HYPOXIA (8) Diabetes Code(s): E11.9 - TYPE 2 DIABETES MELLITUS WITHOUT COMPLICATIONS (9) HLD (hyperlipidemia) Code(s): E78.5 - HYPERLIPIDEMIA, UNSPECIFIED (10) HTN (hypertension) Code(s): I10 - ESSENTIAL (PRIMARY) HYPERTENSION (11) Hx of CABG Code(s): Z95.1 - PRESENCE OF AORTOCORONARY BYPASS GRAFT (12) Pulmonary HTN Code(s): I27.20 - PULMONARY HYPERTENSION, UNSPECIFIED (13) NSTEMI (non-ST elevated myocardial infarction) Assessment/Plan: TNI 3-->47, with CK/MB relative index > 5. On norepinephrine. On ASA and clopidogrel. Restart anticoagulant for AF; use IV heparin for both NSTEMI and AF. F/u ECHO for LVEF, wall motion, chamber sizes. Statin held due to acute alteration in liver enzymes. Code(s): I21.4 - NON-ST ELEVATION (NSTEMI) MYOCARDIAL INFARCTION (14) Acute renal failure (ARF) Code(s): N17.9 - ACUTE KIDNEY FAILURE, UNSPECIFIED (15) Acute respiratory failure Code(s): J96.00 - ACUTE RESPIRATORY FAILURE, UNSP W HYPOXIA OR HYPERCAPNIA
[2018-11-15 12:01] LABS: ARTERIAL BLD GAS O2 SATURATION 95.2 % (90-98.9); ARTERIAL BLOOD GAS BASE EXCESS -15.6 meq/l (-2-2); ARTERIAL BLOOD GAS PCO2 40.6 mmHg (35-45); ARTERIAL BLOOD GAS PO2 89.3 mmHg (68-100)
[2018-11-15 12:03] LABS: ALLENS TEST POSITIVE
[2018-11-15 12:05] LABS: ARTERIAL BLOOD GAS pH 7.12 (7.35-7.45)
[2018-11-15] MEDS ORDERED: HEPARIN NA (PORCINE) 5,000 UNITS/ML 1ML VIAL IVPUSH PRN ×2 (12:36)
[2018-11-15] MEDS ORDERED: PT OWN MED DRAWER 7, Y5N ONE (12:43)
[2018-11-15] MEDS: CEFEPIME 2 GM in DEXTROSE 5%-WATER 100 ML IVPB SCH (12:45)
[2018-11-15] MEDS: SODIUM BICARBONATE 8.4% - 150 MEQ in DEXTROSE 5%-WATER - 1,000 ML IV SCH ×3 (13:49→23:29)
--- NOTE | 2018-11-15 13:51 | PN ---
Progress Note (short form) - Note Progress Note: Patient to go to CT for CTA of A&P. Cleared by Dr Campos because patient is to undergo iHD 11/16/2018.
[2018-11-15] MEDS: HEPARIN - 25,000 UNIT in SODIUM CHLORIDE 495 ML IV SCH (14:13)
--- NOTE | 2018-11-15 15:09 | CONSULT ---
Consult Consult Specialty:: Nephrology Reason for Consultation:: CORTEZ - History of Present Illness Chief Complaint: cardiac arrest History of Present Illness: Pt is an 83 year old female with pmhx of DM, colitis, HTN, HLD, a-fib, CAD, COPD on 3L home O2, and pulm htn who was brought to the ER after cardiac arrest. EMS was called for dyspnea and pt was being brought to the ER when she had a cardiac arrest. She was coded for about 15 minutes in the field. She is now in the ICU intubated. She was found to be in renal failure and I was called to evaluate her. Her son is at bedside and care was discussed with him. Chart was reviewed along with labs. - History Source History Provided By: Family Member, Medical Record - Past Medical History Cardio/Vascular: Yes: CAD, CHF, HTN, Hyperlipdemia Pulmonary: Yes: Pneumonia Gastrointestinal: Yes: Other (colitis) Infectious Disease: Yes: Other (shingles) Endocrine: Yes: Diabetes Mellitus - Past Surgical History Past Surgical History: Yes: CABG (x2 vessel 20yrs ago, cardiac stents x2), C- Section, Hysterectomy - Alcohol/Substance Use Hx Alcohol Use: No History of Substance Use: reports: None - Smoking History Smoking history: Unknown if ever smoked Have you smoked in the past 12 months: No Aproximately how many cigarettes per day: 26 If you are a former smoker, when did you quit?: 1984 - Social History ADL: Support Services History of Recent Travel: No Home Medications - Allergies Allergies/Adverse Reactions: Allergies Allergy/AdvReac Type Severity Reaction Status Date / Time amoxicillin [Amoxicillin] AdvReac Verified 11/15/18 02:31 - Home Medications Home Medications: Ambulatory Orders Acetaminophen [Tylenol .Regular Strength -] 650 mg PO Q6H PRN #0 tablet Albuterol Sulfate Inhaler - [Ventolin HFA Inhaler -] 1 - 2 inh PO QID PRN Amlodipine Besylate 10 mg PO DAILY 06/14/18 Cholecalciferol (Vitamin D3) [Vitamin D -] 50,000 unit PO DAILY 06/14/18 Clopidogrel Bisulfate [Plavix] 75 mg PO DAILY 06/14/18 Famotidine [Pepcid] 40 mg PO DAILY 06/14/18 Fluticasone Propionate 9.9 ml NS ASDIR 06/14/18 Fluticasone/Salmeterol [Advair Hfa 115-21 Mcg Inhaler] 1 inh PO ASDIR 06/14/18 Furosemide [Lasix] 40 mg PO DAILY 06/14/18 Glipizide 5 mg PO DAILY 06/14/18 Linaclotide [Linzess] 145 mcg PO DAILY 06/14/18 Mesalamine 1.2 gm PO DAILY 06/14/18 Mesalamine [Lialda] 1.2 gm PO ASDIR 06/14/18 Metoprolol Succinate 50 mg PO DAILY 06/14/18 Rosuvastatin [Crestor -] 10 mg PO DAILY 06/14/18 metFORMIN HCL [Metformin HCl] 850 mg PO ASDIR 06/14/18 Rivaroxaban [Xarelto] 15 mg PO DAILY@1800 #30 tablet 06/16/18 oxyCODONE HCL [Roxicodone -] 5 mg PO Q4H PRN #30 tablet MDD 30mg 06/16/18 Family Disease History - Family Disease History Family Disease History: CA: Father (lung cancer), Mother (stomach cancer) Review of Systems Unable to obtain ROS, reason: pt lethargic Findings/Remarks: see hpi s/p cardiac arrest and intubated Physical Exam Vital Signs: Vital Signs Temperature 98.2 F 11/15/18 11:15 Pulse Rate 76 11/15/18 11:15 Respiratory Rate 32 H 11/15/18 12:56 Blood Pressure 92/47 L 11/15/18 11:15 O2 Sat by Pulse Oximetry (%) 98 11/15/18 07:00 Constitutional: Yes: Mild Distress Cardiovascular: Yes: JVD, S1, S2 Respiratory: Yes: Mechanically Ventilated Gastrointestinal: Yes: Soft Renal/: Yes: Hunt Present, Oliguria Musculoskeletal: Yes: Muscle Weakness Edema: No Neurological: Yes: Lethargy, Unresponsive Labs: CBC, BMP 11/15/18 07:46 11/15/18 07:46 Laboratory Tests 06/15/18 06/16/18 11/15/18 05:30 05:30 00:50 WBC 11.6 H Hgb 10.8 Plt Count 230 D Puncture Site ABG pH ABG HCO3 Potassium Carbon Dioxide Creatinine 1.3 H 1.3 H Albumin Acetone, Qual 12/25/18 12/25/18 12/25/18 02:30 02:30 03:30 WBC Hgb Plt Count Puncture Site Right radial ABG pH ABG HCO3 10.9 L* Potassium 5.5 H Carbon Dioxide 12 L Creatinine 2.9 H Albumin Acetone, Qual Negative L 11/15/18 11/15/18 11/15/18 05:24 07:46 07:46 WBC 13.9 H Hgb 9.7 L Plt Count 174 D Puncture Site ABG pH 6.99 L* ABG HCO3 13.1 L* Potassium 4.8 Carbon Dioxide 14 L Creatinine 2.9 H Albumin 2.2 L Acetone, Qual 11/15/18 11:55 WBC Hgb Plt Count Puncture Site ABG pH 7.12 L* ABG HCO3 Potassium Carbon Dioxide Creatinine Albumin Acetone, Qual Imaging - Results Chest X-ray: Report Reviewed Problem List - Problems (1) Acute renal failure (ARF) Code(s): N17.9 - ACUTE KIDNEY FAILURE, UNSPECIFIED (2) Cardiac arrest Code(s): I46.9 - CARDIAC ARREST, CAUSE UNSPECIFIED (3) Cardiopulmonary arrest Code(s): I46.9 - CARDIAC ARREST, CAUSE UNSPECIFIED (4) NSTEMI (non-ST elevated myocardial infarction) Code(s): I21.4 - NON-ST ELEVATION (NSTEMI) MYOCARDIAL INFARCTION (5) Pulmonary HTN Code(s): I27.20 - PULMONARY HYPERTENSION, UNSPECIFIED (6) Atrial fibrillation Code(s): I48.91 - UNSPECIFIED ATRIAL FIBRILLATION Assessment/Plan Current Medications Generic Name Dose Route Start Last Admin Trade Name Freq PRN Reason Stop Dose Admin Chlorhexidine Gluconate 1 applic 11/15/18 22:00 Hibiclens For Decolonization - TP HS YOAN Heparin Sodium (Porcine) 1,000 unit 11/15/18 12:36 Heparin - IVPUSH PRN PRN Heparin Heparin Sodium (Porcine) 5,000 unit 11/15/18 12:36 Heparin - IVPUSH PRN PRN Heparin Propofol 1,000,000 mcg in 100 mls @ 2.722 mls/hr 11/15/18 06:30 11/15/18 10: 00 Diprivan - IVPB 9 mcg/kg/min TITR YOAN 4.899 mls/hr Titration Protocol 5 MCG/KG/MIN Norepinephrine Bitartrate 8, 500 mls @ 10.2 mls/hr 11/15/18 06:45 11/15/18 08 :30 000 mcg/ Dextrose IV 0.08 mcg/kg/min ASDIR YOAN 30 mls/hr Titration Protocol 0.03 MCG/KG/MIN Clindamycin Phosphate 600 mg in 50 mls @ 100 mls/hr 11/15/18 10:00 11/15/18 09:48 Cleocin 600 Mg Premix Ivpb - IVPB 100 mls/hr Q8H-IV YOAN Administration Protocol Cefepime HCl 2 gm/ Dextrose 100 mls @ 100 mls/hr 11/15/18 09:00 11/15/18 12: 45 IVPB 100 mls/hr Q24H YOAN Administration Protocol Sodium Bicarbonate 150 meq/ 1,150 mls @ 125 mls/hr 11/15/18 10:30 11/15/18 14 :12 Dextrose IV 125 mls/hr Q9H YOAN Administration Heparin Sodium (Porcine) 25, 500 mls @ 20 mls/hr 11/15/18 12:45 11/15/18 14: 13 000 unit/ Sodium Chloride IV 1,000 unit/hr TITR YOAN 20 mls/hr Administration Protocol 1,000 UNIT/HR Fentanyl 500 mcg/ Sodium 110 mls @ 1.1 mls/hr 11/15/18 13:02 11/15/18 08:35 Chloride IVPB 6 mls/hr TITR YOAN Administration 5 MCG/HR Insulin Aspart 1 vial 11/15/18 06:30 11/15/18 12:32 Novolog Vial Sliding Scale - SQ 4 units Q6H YOAN Administration Protocol Methylprednisolone Sodium Succinate 40 mg 11/15/18 10:30 11/15/18 10:57 Solu-Medrol - IVPUSH 40 mg Q8H-IV YOAN Administration Mupirocin 1 applic 11/15/18 10:00 11/15/18 09:47 Bactroban Ointment (For Decolonization) - NS 11/20/18 09:59 1 applic BID YOAN Administration Pantoprazole Sodium 40 mg 11/15/18 10:15 11/15/18 10:57 Protonix Iv IVPUSH 40 mg BID YOAN Administration Impression 1. CORTEZ 2. cardiac arrest 3. respiratory failure 4. lactic acidosis 5. metabolic acidosis 6. a-fib 7. CAD 8. shock 9. COPD 10. DM 11. HLD 12. 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
[2018-11-15 16:23] LABS: ANION GAP 15 MMOL/L (8-16); BLOOD UREA NITROGEN 56 mg/dL (7-18); CHLORIDE 110 mmol/L (98-107); CO2 15 mmol/L (21-32); GLUCOSE,RANDOM 205 mg/dL (74-106); POTASSIUM 4.3 mmol/L (3.5-5.1); SODIUM 139 mmol/L (136-145)
[2018-11-15 16:28] LABS: CALCIUM 6.5 mg/dL (8.5-10.1)
--- NOTE | 2018-11-15 16:54 | EKG ---
Test Reason : Blood Pressure : / mmHG Vent. Rate : 073 BPM Atrial Rate : 068 BPM P-R Int : 000 ms QRS Dur : 088 ms QT Int : 430 ms P-R-T Axes : 000 043 063 degrees QTc Int : 473 ms ATRIAL FIBRILLATION ABNORMAL ECG WHEN COMPARED WITH ECG OF 15-NOV-2018 04:20, T WAVE AMPLITUDE HAS DECREASED IN ANTERIOR LEADS NONSPECIFIC T WAVE ABNORMALITY HAS REPLACED INVERTED T WAVES IN LATERAL LEADS Confirmed by MD Thomas, Jose Daniel ([id number]) on 11/15/2018 4:53:59 PM Referred By: Confirmed By:Jose Daniel Guzman MD
--- NOTE | 2018-11-15 16:55 | EKG ---
Test Reason : Blood Pressure : / mmHG Vent. Rate : 086 BPM Atrial Rate : 267 BPM P-R Int : 000 ms QRS Dur : 106 ms QT Int : 378 ms P-R-T Axes : 000 -16 145 degrees QTc Int : 452 ms ATRIAL FIBRILLATION ABNORMAL ECG WHEN COMPARED WITH ECG OF 16-JUN-2018 10:26, QRS DURATION HAS INCREASED NONSPECIFIC T WAVE ABNORMALITY NO LONGER EVIDENT IN INFERIOR LEADS T WAVE AMPLITUDE HAS INCREASED IN ANTERIOR LEADS T WAVE INVERSION NOW EVIDENT IN LATERAL LEADS Confirmed by MD Thomas, Jose Daniel ([id number]) on 11/15/2018 4:55:16 PM Referred By: Confirmed By:Jose Daniel Guzman MD
[2018-11-15] MEDS ORDERED: CALCIUM GLUCONATE 10% - 1,000 MG/10 ML VIAL ONE (16:58)
--- NOTE | 2018-11-15 17:08 | PN ---
Physical Exam: SUBJECTIVE: Patient seen and examined at bed side. Sedated and Intubated (s/p cardiac arrest). OBJECTIVE: Vital Signs Period Temp Pulse Resp BP Sys/Loera Pulse Ox Last 24 Hr 92.0 F-104.5 F 62-115 7-58 76-150/31-115 71-100 GENERAL: The patient is sedated and intubated. HEAD: Normal with no signs of trauma. EYES: Right eye: Pupils fixed and dilated. Left eye: Pupils sluggish to light. ENT: Dry mucus membranes. NECK: No JVD LUNGS: B/L coarse breath sounds. HEART: Irregularly irregular rate, S1, S2 with systolic murmur. ABDOMEN: Soft, distended, tympanic to percussion, BS decreased. EXTREMITIES: 2+ pulses, warm, well-perfused, B/L trace lower ext edema. NEUROLOGICAL: Intubated and sedated. SKIN: Warm, dry, normal turgor, no rashes or lesions noted Laboratory Results - last 24 hr 11/15/18 11/15/18 11/15/18 00:50 00:50 00:50 WBC 11.6 H RBC 3.47 L Hgb 10.8 Hct 35.2 MCV 101.7 H MCH 31.0 MCHC 30.5 L RDW 17.3 H Plt Count 230 D MPV 9.0 Absolute Neuts (auto) 6.9 Neutrophils % 59.1 Neutrophils % (Manual) Band Neutrophils % Lymphocytes % 31.9 D Lymphocytes % (Manual) Monocytes % 6.6 Monocytes % (Manual) Eosinophils % 1.6 D Eosinophils % (Manual) Basophils % 0.8 Basophils % (Manual) Myelocytes % (Man) Promyelocytes % (Man) Blast Cells % (Manual) Nucleated RBC % 0 Metamyelocytes Hypochromia Platelet Estimate Polychromasia Poikilocytosis Anisocytosis Microcytosis Macrocytosis Ovalocytes Pancho Cells Schistocytes PT with INR 13.00 INR 1.10 H PTT (Actin FS) 49.5 H Anticoagulation Therapy Puncture Site ABG pH ABG pCO2 at Pt Temp ABG pO2 at Pt Temp ABG HCO3 ABG O2 Sat (Measured) ABG O2 Content ABG Base Excess Reed Test Carboxyhemoglobin Methemoglobin O2 Delivery Device Oxygen Flow Rate Vent Mode Vent Rate Mechanical Rate PEEP Pressure Support Vent Sodium Potassium Chloride Carbon Dioxide Anion Gap BUN Creatinine Creat Clearance w eGFR POC Glucometer Random Glucose Lactic Acid 14.3 H* Calcium Phosphorus Magnesium Total Bilirubin AST ALT Alkaline Phosphatase Creatine Kinase Creatine Kinase Index CK-MB (CK-2) Troponin I B-Natriuretic Peptide Total Protein Albumin Acetone, Qual Blood Type Antibody Screen 11/15/18 11/15/18 11/15/18 00:50 02:30 02:30 WBC RBC Hgb Hct MCV MCH MCHC RDW Plt Count MPV Absolute Neuts (auto) Neutrophils % Neutrophils % (Manual) Band Neutrophils % Lymphocytes % Lymphocytes % (Manual) Monocytes % Monocytes % (Manual) Eosinophils % Eosinophils % (Manual) Basophils % Basophils % (Manual) Myelocytes % (Man) Promyelocytes % (Man) Blast Cells % (Manual) Nucleated RBC % Metamyelocytes Hypochromia Platelet Estimate Polychromasia Poikilocytosis Anisocytosis Microcytosis Macrocytosis Ovalocytes Usk Cells Schistocytes PT with INR INR PTT (Actin FS) Anticoagulation Therapy Puncture Site ABG pH ABG pCO2 at Pt Temp ABG pO2 at Pt Temp ABG HCO3 ABG O2 Sat (Measured) ABG O2 Content ABG Base Excess Reed Test Carboxyhemoglobin Methemoglobin O2 Delivery Device Oxygen Flow Rate Vent Mode Vent Rate Mechanical Rate PEEP Pressure Support Vent Sodium 136 Potassium 5.5 H Chloride 103 Carbon Dioxide 12 L Anion Gap 22 H BUN 53 H Creatinine 2.9 H Creat Clearance w eGFR 15.54 POC Glucometer Random Glucose 495 H* Lactic Acid Calcium 7.7 L Phosphorus Magnesium Total Bilirubin 0.4 AST 197 H ALT 99 H Alkaline Phosphatase 105 Creatine Kinase 291 H Creatine Kinase Index 2.7 CK-MB (CK-2) 8.0 H Troponin I B-Natriuretic Peptide Total Protein 6.0 L Albumin 2.4 L Acetone, Qual Cancelled Blood Type O POSITIVE Antibody Screen Positive H 11/15/18 11/15/18 11/15/18 02:30 02:30 03:30 WBC RBC Hgb Hct MCV MCH MCHC RDW Plt Count MPV Absolute Neuts (auto) Neutrophils % Neutrophils % (Manual) Band Neutrophils % Lymphocytes % Lymphocytes % (Manual) Monocytes % Monocytes % (Manual) Eosinophils % Eosinophils % (Manual) Basophils % Basophils % (Manual) Myelocytes % (Man) Promyelocytes % (Man) Blast Cells % (Manual) Nucleated RBC % Metamyelocytes Hypochromia Platelet Estimate Polychromasia Poikilocytosis Anisocytosis Microcytosis Macrocytosis Ovalocytes Pancho Cells Schistocytes PT with INR INR PTT (Actin FS) Anticoagulation Therapy No Result Required. Puncture Site Right radial ABG pH 6.91 L* ABG pCO2 at Pt Temp 57.5 H ABG pO2 at Pt Temp 58.4 L ABG HCO3 10.9 L* ABG O2 Sat (Measured) 67.5 L* ABG O2 Content 8.7 L* ABG Base Excess -21.0 L* Reed Test Positive Carboxyhemoglobin 0.4 L Methemoglobin 0.8 O2 Delivery Device Vent Oxygen Flow Rate 100 Vent Mode A/c Vent Rate 450 Mechanical Rate No Result Required. PEEP 5.0 Pressure Support Vent No Result Required. Sodium Potassium Chloride Carbon Dioxide Anion Gap BUN Creatinine Creat Clearance w eGFR POC Glucometer Random Glucose Lactic Acid Calcium Phosphorus Magnesium 2.5 H Total Bilirubin AST ALT Alkaline Phosphatase Creatine Kinase Creatine Kinase Index CK-MB (CK-2) Cancelled Troponin I 3.04 H* B-Natriuretic Peptide Total Protein Albumin Acetone, Qual Negative L Blood Type Antibody Screen 11/15/18 11/15/18 11/15/18 05:24 07:46 07:46 WBC 13.9 H RBC 3.34 L Hgb 9.7 L Hct 31.9 L MCV 95.8 MCH 29.2 MCHC 30.5 L RDW 16.0 H Plt Count 174 D MPV 8.0 D Absolute Neuts (auto) 12.3 H Neutrophils % 88.5 H D Neutrophils % (Manual) 74.0 Band Neutrophils % 20.0 Lymphocytes % 8.8 D Lymphocytes % (Manual) 4.0 L Monocytes % 2.0 L Monocytes % (Manual) 0 L Eosinophils % 0.3 D Eosinophils % (Manual) 0.0 Basophils % 0.4 Basophils % (Manual) 0.0 Myelocytes % (Man) 1 Promyelocytes % (Man) 0 Blast Cells % (Manual) 0 Nucleated RBC % 0 Metamyelocytes 1 Hypochromia 0 Platelet Estimate Normal Polychromasia 0 Poikilocytosis 2+ Anisocytosis 1+ Microcytosis 0 Macrocytosis 1+ Ovalocytes 1+ Pancho Cells 2+ Schistocytes 1+ PT with INR INR PTT (Actin FS) Anticoagulation Therapy No Result Required. Puncture Site Right radial ABG pH 6.99 L* ABG pCO2 at Pt Temp 57.5 H ABG pO2 at Pt Temp 40.8 L* D ABG HCO3 13.1 L* ABG O2 Sat (Measured) 53.2 L* ABG O2 Content 7.1 L* ABG Base Excess -17.7 L* Reed Test Positive Carboxyhemoglobin Methemoglobin O2 Delivery Device Vent Oxygen Flow Rate 100 Vent Mode A/c Vent Rate 18 Mechanical Rate No Result Required. PEEP 5.0 Pressure Support Vent 400 Sodium Potassium Chloride Carbon Dioxide Anion Gap BUN Creatinine Creat Clearance w eGFR POC Glucometer Random Glucose Lactic Acid 8.2 H* Calcium Phosphorus Magnesium Total Bilirubin AST ALT Alkaline Phosphatase Creatine Kinase Creatine Kinase Index CK-MB (CK-2) Troponin I B-Natriuretic Peptide Total Protein Albumin Acetone, Qual Blood Type Antibody Screen 11/15/18 11/15/18 11/15/18 07:46 07:46 08:54 WBC RBC Hgb Hct MCV MCH MCHC RDW Plt Count MPV Absolute Neuts (auto) Neutrophils % Neutrophils % (Manual) Band Neutrophils % Lymphocytes % Lymphocytes % (Manual) Monocytes % Monocytes % (Manual) Eosinophils % Eosinophils % (Manual) Basophils % Basophils % (Manual) Myelocytes % (Man) Promyelocytes % (Man) Blast Cells % (Manual) Nucleated RBC % Metamyelocytes Hypochromia Platelet Estimate Polychromasia Poikilocytosis Anisocytosis Microcytosis Macrocytosis Ovalocytes Usk Cells Schistocytes PT with INR 17.20 H INR 1.45 H PTT (Actin FS) 34.9 Anticoagulation Therapy Puncture Site ABG pH ABG pCO2 at Pt Temp ABG pO2 at Pt Temp ABG HCO3 ABG O2 Sat (Measured) ABG O2 Content ABG Base Excess Reed Test Carboxyhemoglobin Methemoglobin O2 Delivery Device Oxygen Flow Rate Vent Mode Vent Rate Mechanical Rate PEEP Pressure Support Vent Sodium 139 Potassium 4.8 Chloride 111 H Carbon Dioxide 14 L Anion Gap 14 BUN 53 H Creatinine 2.9 H Creat Clearance w eGFR 15.54 POC Glucometer [id number] Random Glucose 265 H Lactic Acid Calcium 6.1 L* Phosphorus 6.5 H Magnesium 2.2 Total Bilirubin 0.6 AST 825 H ALT 252 H Alkaline Phosphatase 154 H Creatine Kinase 754 H Creatine Kinase Index 5.9 H CK-MB (CK-2) 45.1 H Troponin I 47.10 H* B-Natriuretic Peptide 9636.5 H Total Protein 5.2 L Albumin 2.2 L Acetone, Qual Blood Type Antibody Screen 11/15/18 11/15/18 11/15/18 11:55 15:30 15:30 WBC RBC Hgb Hct MCV MCH MCHC RDW Plt Count MPV Absolute Neuts (auto) Neutrophils % Neutrophils % (Manual) Band Neutrophils % Lymphocytes % Lymphocytes % (Manual) Monocytes % Monocytes % (Manual) Eosinophils % Eosinophils % (Manual) Basophils % Basophils % (Manual) Myelocytes % (Man) Promyelocytes % (Man) Blast Cells % (Manual) Nucleated RBC % Metamyelocytes Hypochromia Platelet Estimate Polychromasia Poikilocytosis Anisocytosis Microcytosis Macrocytosis Ovalocytes Usk Cells Schistocytes PT with INR INR PTT (Actin FS) Anticoagulation Therapy Puncture Site Left brachial ABG pH 7.12 L* ABG pCO2 at Pt Temp 40.6 D ABG pO2 at Pt Temp 89.3 D ABG HCO3 12.6 L* ABG O2 Sat (Measured) 95.2 ABG O2 Content 13.5 L ABG Base Excess -15.6 L* Reed Test Positive Carboxyhemoglobin Methemoglobin O2 Delivery Device Oxygen Flow Rate Yes Vent Mode Vent Rate 24 Mechanical Rate PEEP 10.0 Pressure Support Vent 400 Sodium 139 Potassium 4.3 Chloride 110 H Carbon Dioxide 15 L Anion Gap 15 BUN 56 H Creatinine 3.0 H Creat Clearance w eGFR 14.94 POC Glucometer Random Glucose 205 H Lactic Acid 6.9 H* Calcium 6.5 L* Phosphorus Magnesium Total Bilirubin AST ALT Alkaline Phosphatase Creatine Kinase Creatine Kinase Index CK-MB (CK-2) Troponin I 77.40 H* B-Natriuretic Peptide Total Protein Albumin Acetone, Qual Blood Type Antibody Screen Active Medications Generic Name Dose Route Start Last Admin Trade Name Freq PRN Reason Stop Dose Admin Chlorhexidine Gluconate 1 applic 11/15/18 22:00 Hibiclens For Decolonization - TP HS YOAN Heparin Sodium (Porcine) 1,000 unit 11/15/18 12:36 Heparin - IVPUSH PRN PRN Heparin Heparin Sodium (Porcine) 5,000 unit 11/15/18 12:36 Heparin - IVPUSH PRN PRN Heparin Propofol 1,000,000 mcg in 100 mls @ 2.722 mls/hr 11/15/18 06:30 11/15/18 10: 00 Diprivan - IVPB 9 mcg/kg/min TITR YOAN 4.899 mls/hr Titration Protocol 5 MCG/KG/MIN Norepinephrine Bitartrate 8, 500 mls @ 10.2 mls/hr 11/15/18 06:45 11/15/18 15 :52 000 mcg/ Dextrose IV 0.08 mcg/kg/min ASDIR YOAN 30 mls/hr Titration Protocol 0.03 MCG/KG/MIN Clindamycin Phosphate 600 mg in 50 mls @ 100 mls/hr 11/15/18 10:00 11/15/18 09:48 Cleocin 600 Mg Premix Ivpb - IVPB 100 mls/hr Q8H-IV YOAN Administration Protocol Cefepime HCl 2 gm/ Dextrose 100 mls @ 100 mls/hr 11/15/18 09:00 11/15/18 12: 45 IVPB 100 mls/hr Q24H YOAN Administration Protocol Sodium Bicarbonate 150 meq/ 1,150 mls @ 125 mls/hr 11/15/18 10:30 11/15/18 14 :12 Dextrose IV 125 mls/hr Q9H YOAN Administration Heparin Sodium (Porcine) 25, 500 mls @ 20 mls/hr 11/15/18 12:45 11/15/18 14: 13 000 unit/ Sodium Chloride IV 1,000 unit/hr TITR YOAN 20 mls/hr Administration Protocol 1,000 UNIT/HR Fentanyl 500 mcg/ Sodium 100 mls @ 1 mls/hr 11/15/18 16:15 11/15/18 12:00 Chloride IVPB 20 mcg/hr TITR YOAN 4 mls/hr Titration Protocol 5 MCG/HR Insulin Aspart 1 vial 11/15/18 06:30 11/15/18 12:32 Novolog Vial Sliding Scale - SQ 4 units Q6H YOAN Administration Protocol Methylprednisolone Sodium Succinate 40 mg 11/15/18 10:30 11/15/18 10:57 Solu-Medrol - IVPUSH 40 mg Q8H-IV YOAN Administration Mupirocin 1 applic 11/15/18 10:00 11/15/18 09:47 Bactroban Ointment (For Decolonization) - NS 11/20/18 09:59 1 applic BID YOAN Administration Pantoprazole Sodium 40 mg 11/15/18 10:15 11/15/18 10:57 Protonix Iv IVPUSH 40 mg BID YOAN Administration ASSESSMENT/PLAN: Patient is an 83 year old female with PMhx of CAD s/p stent x2, HTN, A-fib ( plavix/ASA), COPD (3L NC at home), HLD, and colitis who presented s/p cardiac arrest by EMS. # Acute hypoxic hypercapenic respiratory failure likely from aspiration pneumonia Sedated and Intubated PRVC 18/400/100/5 continue sedation IV Cefepime 2gm daily Day 1, IV Clindamycin Day 1 IV Solumedrol 40 mg Q8H Blood cultures/ urine cultures pending Urine for legionella pending Sputum cultures pending # Cardiopulmonary arrest-etiology unknown ROSC achieved after 15 mins. Hypothermia protocol initiated Rule out anoxic brain injury (Left pupils fixed and dilated right pupil slightly sluggish) Echo pending Appreciate Cardio recommendations # Atrial fibrillation Continue IV Heparin drip. # NSTEMI COntinue IV Heparin drip. Trend trops. serial EKGs # Acute on chronic dCHF Pending ECHO. Recent ECHO showed Normal LV Not on Lasix-patient looks dry, low urinary output Strict I's and O's Daily weight Johnson in place Severe metabolic acidosis post cardiac arrest Continue bicarb drip in D5W @ 125 mls/hr Trend lactic acid Repeat ABG # Acute on chronic CKD with ATN likely from prolonged hypotension Urine electrolytes pending # FEN Continue IV D5W @ 125 mls.hr Electrolytes repeat and replete lytes NPO # Prophylaxis For DVT: On IV Heparin drip For GI: On IV protonix 40mg BID # Code Status: Full Code # Dispo: Monitor in ICU Case discussed with Dr. Dhillon. Visit type - Emergency Visit Emergency Visit: Yes ED Registration Date: 11/15/18 Care time: The patient presented to the Emergency Department on the above date and was hospitalized for further evaluation of their emergent condition. - New Patient This patient is new to me today: Yes Date on this admission: 11/15/18 - Critical Care Critical Care patient: Yes Total Critical Care Time (in minutes): 35 Critical Care Statement: The care of this patient involved high complexity decision making to prevent further life threatening deterioration of the patient 's condition and/or to evaluate & treat vital organ system(s) failure or risk of failure. - Discharge Referral Referred to [facility] No
[2018-11-15] MEDS ORDERED: RIVAROXABAN 15 MG TABLET PO SCH (18:00)
[2018-11-15 18:20] LABS: URINE APPEARANCE CLOUDY; URINE BILIRUBIN NEGATIVE (<2.0 mg/dL); URINE COLOR AMBER; URINE GLUCOSE (UA) 3+ (NEGATIVE); URINE KETONE NEGATIVE (NEGATIVE); URINE LEUK ESTERASE NEGATIVE (NEGATIVE); URINE NITRITE NEGATIVE (NEGATIVE); URINE PROTEIN 3+ (NEGATIVE); URINE UROBILINOGEN NEGATIVE mg/dL (0.2-1.0)
[2018-11-15 18:25] LABS: EPI CELLS RARE /HPF (FEW); URINE BACTERIA MANY /hpf (NONE SEEN); URINE HYALINE CAST 14 /lpf; YEAST MANY
[2018-11-15] MEDS ORDERED: ATROPINE SULFATE 1 MG/10 ML DISP.SYRIN IVPUSH ONE (19:09)
--- NOTE | 2018-11-15 19:18 | PN ---
Teaching Attending Note Name of Resident: Zohra David ATTENDING PHYSICIAN STATEMENT I saw and evaluated the patient. I reviewed the resident's note and discussed the case with the resident. I agree with the resident's findings and plan as documented. SUBJECTIVE: Patient intubated and sedated. She appears comfortable. OBJECTIVE: Vital Signs Period Temp Pulse Resp BP Sys/Loera Pulse Ox Last 24 Hr 92.0 F-104.5 F 62-115 7-58 76-150/31-115 71-100 GENERAL: Unresponsive on vent HEART: Irregularly irregular, tachycardic LUNGS: Bilateral rhonchi ABDOMEN: Obese, soft, mild distention, normal BS EXTREMITIES: No edema Laboratory Results - last 24 hr 11/15/18 11/15/18 11/15/18 00:50 00:50 00:50 WBC 11.6 H RBC 3.47 L Hgb 10.8 Hct 35.2 MCV 101.7 H MCH 31.0 MCHC 30.5 L RDW 17.3 H Plt Count 230 D MPV 9.0 Absolute Neuts (auto) 6.9 Neutrophils % 59.1 Neutrophils % (Manual) Band Neutrophils % Lymphocytes % 31.9 D Lymphocytes % (Manual) Monocytes % 6.6 Monocytes % (Manual) Eosinophils % 1.6 D Eosinophils % (Manual) Basophils % 0.8 Basophils % (Manual) Myelocytes % (Man) Promyelocytes % (Man) Blast Cells % (Manual) Nucleated RBC % 0 Metamyelocytes Hypochromia Platelet Estimate Polychromasia Poikilocytosis Anisocytosis Microcytosis Macrocytosis Ovalocytes [place] Cells Schistocytes PT with INR 13.00 INR 1.10 H PTT (Actin FS) 49.5 H Anticoagulation Therapy Puncture Site ABG pH ABG pCO2 at Pt Temp ABG pO2 at Pt Temp ABG HCO3 ABG O2 Sat (Measured) ABG O2 Content ABG Base Excess Reed Test Carboxyhemoglobin Methemoglobin O2 Delivery Device Oxygen Flow Rate Vent Mode Vent Rate Mechanical Rate PEEP Pressure Support Vent Sodium Potassium Chloride Carbon Dioxide Anion Gap BUN Creatinine Creat Clearance w eGFR POC Glucometer Random Glucose Lactic Acid 14.3 H* Calcium Phosphorus Magnesium Total Bilirubin AST ALT Alkaline Phosphatase Creatine Kinase Creatine Kinase Index CK-MB (CK-2) Troponin I B-Natriuretic Peptide Total Protein Albumin Urine Color Urine Appearance Urine pH Ur Specific [place] Urine Protein Urine Glucose (UA) Urine Ketones Urine Blood Urine Nitrite Urine Bilirubin Urine Urobilinogen Ur Leukocyte Esterase Urine WBC (Auto) Urine RBC (Auto) Ur Epithelial Cells Urine Bacteria Hyaline Casts Urine Yeast Acetone, Qual Blood Type Antibody Screen Antibody Identification Antigen Identification 11/15/18 11/15/18 11/15/18 00:50 02:30 02:30 WBC RBC Hgb Hct MCV MCH MCHC RDW Plt Count MPV Absolute Neuts (auto) Neutrophils % Neutrophils % (Manual) Band Neutrophils % Lymphocytes % Lymphocytes % (Manual) Monocytes % Monocytes % (Manual) Eosinophils % Eosinophils % (Manual) Basophils % Basophils % (Manual) Myelocytes % (Man) Promyelocytes % (Man) Blast Cells % (Manual) Nucleated RBC % Metamyelocytes Hypochromia Platelet Estimate Polychromasia Poikilocytosis Anisocytosis Microcytosis Macrocytosis Ovalocytes [place] Cells Schistocytes PT with INR INR PTT (Actin FS) Anticoagulation Therapy Puncture Site ABG pH ABG pCO2 at Pt Temp ABG pO2 at Pt Temp ABG HCO3 ABG O2 Sat (Measured) ABG O2 Content ABG Base Excess Reed Test Carboxyhemoglobin Methemoglobin O2 Delivery Device Oxygen Flow Rate Vent Mode Vent Rate Mechanical Rate PEEP Pressure Support Vent Sodium 136 Potassium 5.5 H Chloride 103 Carbon Dioxide 12 L Anion Gap 22 H BUN 53 H Creatinine 2.9 H Creat Clearance w eGFR 15.54 POC Glucometer Random Glucose 495 H* Lactic Acid Calcium 7.7 L Phosphorus Magnesium Total Bilirubin 0.4 AST 197 H ALT 99 H Alkaline Phosphatase 105 Creatine Kinase 291 H Creatine Kinase Index 2.7 CK-MB (CK-2) 8.0 H Troponin I B-Natriuretic Peptide Total Protein 6.0 L Albumin 2.4 L Urine Color Urine Appearance Urine pH Ur Specific [place] Urine Protein Urine Glucose (UA) Urine Ketones Urine Blood Urine Nitrite Urine Bilirubin Urine Urobilinogen Ur Leukocyte Esterase Urine WBC (Auto) Urine RBC (Auto) Ur Epithelial Cells Urine Bacteria Hyaline Casts Urine Yeast Acetone, Qual Cancelled Blood Type O POSITIVE Antibody Screen Positive H Antibody Identification Anti-S Antigen Identification S Antigen - NEGATIVE 11/15/18 11/15/18 11/15/18 02:30 02:30 03:30 WBC RBC Hgb Hct MCV MCH MCHC RDW Plt Count MPV Absolute Neuts (auto) Neutrophils % Neutrophils % (Manual) Band Neutrophils % Lymphocytes % Lymphocytes % (Manual) Monocytes % Monocytes % (Manual) Eosinophils % Eosinophils % (Manual) Basophils % Basophils % (Manual) Myelocytes % (Man) Promyelocytes % (Man) Blast Cells % (Manual) Nucleated RBC % Metamyelocytes Hypochromia Platelet Estimate Polychromasia Poikilocytosis Anisocytosis Microcytosis Macrocytosis Ovalocytes [place] Cells Schistocytes PT with INR INR PTT (Actin FS) Anticoagulation Therapy No Result Required. Puncture Site Right radial ABG pH 6.91 L* ABG pCO2 at Pt Temp 57.5 H ABG pO2 at Pt Temp 58.4 L ABG HCO3 10.9 L* ABG O2 Sat (Measured) 67.5 L* ABG O2 Content 8.7 L* ABG Base Excess -21.0 L* Reed Test Positive Carboxyhemoglobin 0.4 L Methemoglobin 0.8 O2 Delivery Device Vent Oxygen Flow Rate 100 Vent Mode A/c Vent Rate 450 Mechanical Rate No Result Required. PEEP 5.0 Pressure Support Vent No Result Required. Sodium Potassium Chloride Carbon Dioxide Anion Gap BUN Creatinine Creat Clearance w eGFR POC Glucometer Random Glucose Lactic Acid Calcium Phosphorus Magnesium 2.5 H Total Bilirubin AST ALT Alkaline Phosphatase Creatine Kinase Creatine Kinase Index CK-MB (CK-2) Cancelled Troponin I 3.04 H* B-Natriuretic Peptide Total Protein Albumin Urine Color Urine Appearance Urine pH Ur Specific [place] Urine Protein Urine Glucose (UA) Urine Ketones Urine Blood Urine Nitrite Urine Bilirubin Urine Urobilinogen Ur Leukocyte Esterase Urine WBC (Auto) Urine RBC (Auto) Ur Epithelial Cells Urine Bacteria Hyaline Casts Urine Yeast Acetone, Qual Negative L Blood Type Antibody Screen Antibody Identification Antigen Identification 11/15/18 11/15/18 11/15/18 05:24 07:46 07:46 WBC 13.9 H RBC 3.34 L Hgb 9.7 L Hct 31.9 L MCV 95.8 MCH 29.2 MCHC 30.5 L RDW 16.0 H Plt Count 174 D MPV 8.0 D Absolute Neuts (auto) 12.3 H Neutrophils % 88.5 H D Neutrophils % (Manual) 74.0 Band Neutrophils % 20.0 Lymphocytes % 8.8 D Lymphocytes % (Manual) 4.0 L Monocytes % 2.0 L Monocytes % (Manual) 0 L Eosinophils % 0.3 D Eosinophils % (Manual) 0.0 Basophils % 0.4 Basophils % (Manual) 0.0 Myelocytes % (Man) 1 Promyelocytes % (Man) 0 Blast Cells % (Manual) 0 Nucleated RBC % 0 Metamyelocytes 1 Hypochromia 0 Platelet Estimate Normal Polychromasia 0 Poikilocytosis 2+ Anisocytosis 1+ Microcytosis 0 Macrocytosis 1+ Ovalocytes 1+ [place] Cells 2+ Schistocytes 1+ PT with INR INR PTT (Actin FS) Anticoagulation Therapy No Result Required. Puncture Site Right radial ABG pH 6.99 L* ABG pCO2 at Pt Temp 57.5 H ABG pO2 at Pt Temp 40.8 L* D ABG HCO3 13.1 L* ABG O2 Sat (Measured) 53.2 L* ABG O2 Content 7.1 L* ABG Base Excess -17.7 L* Reed Test Positive Carboxyhemoglobin Methemoglobin O2 Delivery Device Vent Oxygen Flow Rate 100 Vent Mode A/c Vent Rate 18 Mechanical Rate No Result Required. PEEP 5.0 Pressure Support Vent 400 Sodium Potassium Chloride Carbon Dioxide Anion Gap BUN Creatinine Creat Clearance w eGFR POC Glucometer Random Glucose Lactic Acid 8.2 H* Calcium Phosphorus Magnesium Total Bilirubin AST ALT Alkaline Phosphatase Creatine Kinase Creatine Kinase Index CK-MB (CK-2) Troponin I B-Natriuretic Peptide Total Protein Albumin Urine Color Urine Appearance Urine pH Ur Specific [place] Urine Protein Urine Glucose (UA) Urine Ketones Urine Blood Urine Nitrite Urine Bilirubin Urine Urobilinogen Ur Leukocyte Esterase Urine WBC (Auto) Urine RBC (Auto) Ur Epithelial Cells Urine Bacteria Hyaline Casts Urine Yeast Acetone, Qual Blood Type Antibody Screen Antibody Identification Antigen Identification 11/15/18 11/15/18 11/15/18 07:46 07:46 08:54 WBC RBC Hgb Hct MCV MCH MCHC RDW Plt Count MPV Absolute Neuts (auto) Neutrophils % Neutrophils % (Manual) Band Neutrophils % Lymphocytes % Lymphocytes % (Manual) Monocytes % Monocytes % (Manual) Eosinophils % Eosinophils % (Manual) Basophils % Basophils % (Manual) Myelocytes % (Man) Promyelocytes % (Man) Blast Cells % (Manual) Nucleated RBC % Metamyelocytes Hypochromia Platelet Estimate Polychromasia Poikilocytosis Anisocytosis Microcytosis Macrocytosis Ovalocytes [place] Cells Schistocytes PT with INR 17.20 H INR 1.45 H PTT (Actin FS) 34.9 Anticoagulation Therapy Puncture Site ABG pH ABG pCO2 at Pt Temp ABG pO2 at Pt Temp ABG HCO3 ABG O2 Sat (Measured) ABG O2 Content ABG Base Excess Reed Test Carboxyhemoglobin Methemoglobin O2 Delivery Device Oxygen Flow Rate Vent Mode Vent Rate Mechanical Rate PEEP Pressure Support Vent Sodium 139 Potassium 4.8 Chloride 111 H Carbon Dioxide 14 L Anion Gap 14 BUN 53 H Creatinine 2.9 H Creat Clearance w eGFR 15.54 POC Glucometer [phone] Random Glucose 265 H Lactic Acid Calcium 6.1 L* Phosphorus 6.5 H Magnesium 2.2 Total Bilirubin 0.6 AST 825 H ALT 252 H Alkaline Phosphatase 154 H Creatine Kinase 754 H Creatine Kinase Index 5.9 H CK-MB (CK-2) 45.1 H Troponin I 47.10 H* B-Natriuretic Peptide 9636.5 H Total Protein 5.2 L Albumin 2.2 L Urine Color Urine Appearance Urine pH Ur Specific [place] Urine Protein Urine Glucose (UA) Urine Ketones Urine Blood Urine Nitrite Urine Bilirubin Urine Urobilinogen Ur Leukocyte Esterase Urine WBC (Auto) Urine RBC (Auto) Ur Epithelial Cells Urine Bacteria Hyaline Casts Urine Yeast Acetone, Qual Blood Type Antibody Screen Antibody Identification Antigen Identification 11/15/18 11/15/18 11/15/18 11:55 15:30 15:30 WBC RBC Hgb Hct MCV MCH MCHC RDW Plt Count MPV Absolute Neuts (auto) Neutrophils % Neutrophils % (Manual) Band Neutrophils % Lymphocytes % Lymphocytes % (Manual) Monocytes % Monocytes % (Manual) Eosinophils % Eosinophils % (Manual) Basophils % Basophils % (Manual) Myelocytes % (Man) Promyelocytes % (Man) Blast Cells % (Manual) Nucleated RBC % Metamyelocytes Hypochromia Platelet Estimate Polychromasia Poikilocytosis Anisocytosis Microcytosis Macrocytosis Ovalocytes [place] Cells Schistocytes PT with INR INR PTT (Actin FS) Anticoagulation Therapy Puncture Site Left brachial ABG pH 7.12 L* ABG pCO2 at Pt Temp 40.6 D ABG pO2 at Pt Temp 89.3 D ABG HCO3 12.6 L* ABG O2 Sat (Measured) 95.2 ABG O2 Content 13.5 L ABG Base Excess -15.6 L* Reed Test Positive Carboxyhemoglobin Methemoglobin O2 Delivery Device Oxygen Flow Rate Yes Vent Mode Vent Rate 24 Mechanical Rate PEEP 10.0 Pressure Support Vent 400 Sodium 139 Potassium 4.3 Chloride 110 H Carbon Dioxide 15 L Anion Gap 15 BUN 56 H Creatinine 3.0 H Creat Clearance w eGFR 14.94 POC Glucometer Random Glucose 205 H Lactic Acid 6.9 H* Calcium 6.5 L* Phosphorus Magnesium Total Bilirubin AST ALT Alkaline Phosphatase Creatine Kinase Creatine Kinase Index CK-MB (CK-2) Troponin I 77.40 H* B-Natriuretic Peptide Total Protein Albumin Urine Color Urine Appearance Urine pH Ur Specific [place] Urine Protein Urine Glucose (UA) Urine Ketones Urine Blood Urine Nitrite Urine Bilirubin Urine Urobilinogen Ur Leukocyte Esterase Urine WBC (Auto) Urine RBC (Auto) Ur Epithelial Cells Urine Bacteria Hyaline Casts Urine Yeast Acetone, Qual Blood Type Antibody Screen Antibody Identification Antigen Identification 11/15/18 17:50 WBC RBC Hgb Hct MCV MCH MCHC RDW Plt Count MPV Absolute Neuts (auto) Neutrophils % Neutrophils % (Manual) Band Neutrophils % Lymphocytes % Lymphocytes % (Manual) Monocytes % Monocytes % (Manual) Eosinophils % Eosinophils % (Manual) Basophils % Basophils % (Manual) Myelocytes % (Man) Promyelocytes % (Man) Blast Cells % (Manual) Nucleated RBC % Metamyelocytes Hypochromia Platelet Estimate Polychromasia Poikilocytosis Anisocytosis Microcytosis Macrocytosis Ovalocytes [place] Cells Schistocytes PT with INR INR PTT (Actin FS) Anticoagulation Therapy Puncture Site ABG pH ABG pCO2 at Pt Temp ABG pO2 at Pt Temp ABG HCO3 ABG O2 Sat (Measured) ABG O2 Content ABG Base Excess Reed Test Carboxyhemoglobin Methemoglobin O2 Delivery Device Oxygen Flow Rate Vent Mode Vent Rate Mechanical Rate PEEP Pressure Support Vent Sodium Potassium Chloride Carbon Dioxide Anion Gap BUN Creatinine Creat Clearance w eGFR POC Glucometer Random Glucose Lactic Acid Calcium Phosphorus Magnesium Total Bilirubin AST ALT Alkaline Phosphatase Creatine Kinase Creatine Kinase Index CK-MB (CK-2) Troponin I B-Natriuretic Peptide Total Protein Albumin Urine Color Shira Urine Appearance Cloudy Urine pH 5.0 Ur Specific [place] 1.021 Urine Protein 3+ H Urine Glucose (UA) 3+ H D Urine Ketones Negative Urine Blood 1+ H Urine Nitrite Negative Urine Bilirubin Negative Urine Urobilinogen Negative Ur Leukocyte Esterase Negative Urine WBC (Auto) 15 Urine RBC (Auto) 7 Ur Epithelial Cells Rare Urine Bacteria Many Hyaline Casts 14 Urine Yeast Many Acetone, Qual Blood Type Antibody Screen Antibody Identification Antigen Identification Current Medications Generic Name Dose Route Start Last Admin Trade Name Freq PRN Reason Stop Dose Admin Chlorhexidine Gluconate 1 applic 11/15/18 22:00 Hibiclens For Decolonization - TP HS YOAN Heparin Sodium (Porcine) 1,000 unit 11/15/18 12:36 Heparin - IVPUSH PRN PRN Heparin Heparin Sodium (Porcine) 5,000 unit 11/15/18 12:36 Heparin - IVPUSH PRN PRN Heparin Propofol 1,000,000 mcg in 100 mls @ 2.722 mls/hr 11/15/18 06:30 11/15/18 10: 00 Diprivan - IVPB 9 mcg/kg/min TITR YOAN 4.899 mls/hr Titration Protocol 5 MCG/KG/MIN Norepinephrine Bitartrate 8, 500 mls @ 10.2 mls/hr 11/15/18 06:45 11/15/18 15 :52 000 mcg/ Dextrose IV 0.08 mcg/kg/min ASDIR YOAN 30 mls/hr Titration Protocol 0.03 MCG/KG/MIN Clindamycin Phosphate 600 mg in 50 mls @ 100 mls/hr 11/15/18 10:00 11/15/18 17:30 Cleocin 600 Mg Premix Ivpb - IVPB 100 mls/hr Q8H-IV YOAN Administration Protocol Cefepime HCl 2 gm/ Dextrose 100 mls @ 100 mls/hr 11/15/18 09:00 11/15/18 12: 45 IVPB 100 mls/hr Q24H YOAN Administration Protocol Sodium Bicarbonate 150 meq/ 1,150 mls @ 125 mls/hr 11/15/18 10:30 11/15/18 14 :12 Dextrose IV 125 mls/hr Q9H YOAN Administration Heparin Sodium (Porcine) 25, 500 mls @ 20 mls/hr 11/15/18 12:45 11/15/18 14: 13 000 unit/ Sodium Chloride IV 1,000 unit/hr TITR YOAN 20 mls/hr Administration Protocol 1,000 UNIT/HR Fentanyl 500 mcg/ Sodium 100 mls @ 1 mls/hr 11/15/18 16:15 11/15/18 12:00 Chloride IVPB 20 mcg/hr TITR YOAN 4 mls/hr Titration Protocol 5 MCG/HR Insulin Aspart 1 vial 11/15/18 06:30 11/15/18 17:30 Novolog Vial Sliding Scale - SQ 6 units Q6H YOAN Administration Protocol Methylprednisolone Sodium Succinate 40 mg 11/15/18 10:30 11/15/18 17:30 Solu-Medrol - IVPUSH 40 mg Q8H-IV YOAN Administration Mupirocin 1 applic 11/15/18 10:00 11/15/18 09:47 Bactroban Ointment (For Decolonization) - NS 11/20/18 09:59 1 applic BID YOAN Administration Pantoprazole Sodium 40 mg 11/15/18 10:15 11/15/18 10:57 Protonix Iv IVPUSH 40 mg BID YOAN Administration ASSESSMENT AND PLAN: This is an 83 year old woman with a history of CAD with CABG/stents, HTN, hyperlipidemia, atrial fib, COPD, pulm HTN, chronic hypoxic respiratory failure , type 2 DM, colitis who presented to the ED after cardiac arrest. 1. Acute on chronic hypoxic respiratory failure - Patient intubated - Maintain sedation with propofol - SoluMedrol started - Vent management as per ICU team 2. Cardiopulmonary arrest - Hypothermia protocol 3. Possible anoxic brain injury 4. Acute NSTEMI - Heparin IV drip started - Continue aspirin, Plavix - Hold Crestor secondary to transaminitis - Follow troponins - Echocardiogram - Cardiology consult appreciated 5. Sepsis secondary to pneumonia, probable aspiration - Cefepime, Clindamycin started - Follow up urine, blood cultures 6. Shock, septic vs cardiogenic - Maintain norepinephrine 7. Lactic acidosis, severe metabolic acidosis - Secondary to sepsis, shock, cardiopulmonary arrest - Continue sodium bicarb IV drip - Monitor lactic acid 8. Hepatic transaminitis - Secondary to hypoperfusion - Monitor LFTs - Hold Crestor 9. Atrial fibrillation, permanent - On Toprol XL, Xarelto at home - Continue heparin IV drip 10. Acute kidney injury on stage 3 CKD - Secondary to ATN from hypoperfusion 11. Acute on chronic diastolic heart failure 12. CAD, history of CABG/stents - On Toprol XL, Plavix, Crestor at home 13. HTN 14. Hyperlipidemia 15. COPD 16. Severe pulmonary HTN 17. Type 2 DM - Fingersticks with Novolog sliding scale 18. Obesity with BMI 32.0
--- NOTE | 2018-11-15 20:46 | HOSP ---
Subjective - Review of Symptoms Events since last encounter: Noted by nurse that patient is bradycardic in the low 30s while rest of her vitals remain within normal limits. Femoral pulses were palpable. 1 mg of atropine given and patient's heart rate quickly returned to low 90s. Patient's daughter, son-in-law, and grandson arrived 40 mins later. Daughter is the decision maker for the patient. I updated them with patient's condition, treatment and prognosis and they would like to see how patient does tommorrow with spontaneous breathing trial and sedation holiday. For now, they want to continue full code for the patient. Physical Examination Vital Signs: Vital Signs Temperature 92.0 F L 11/15/18 18:00 Pulse Rate 83 11/15/18 19:05 Respiratory Rate 22 H 11/15/18 19:05 Blood Pressure 168/61 11/15/18 19:05 O2 Sat by Pulse Oximetry (%) 100 11/15/18 19:26 Labs: CBC, BMP 11/15/18 07:46 11/15/18 15:30 Hospitalist Encounter Assessment: Bradycardia - s/p 1mg atropine - likely due to electrolyte abnormalities or hypothermia - repeat BMP, replete lytes PRN Visit type - Emergency Visit Emergency Visit: No - New Patient This patient is new to me today: No - Critical Care Critical Care patient: Yes Total Critical Care Time (in minutes): 35 Critical Care Statement: The care of this patient involved high complexity decision making to prevent further life threatening deterioration of the patient 's condition and/or to evaluate & treat vital organ system(s) failure or risk of failure.
[2018-11-15] MEDS ORDERED: CHLORHEXIDINE GLUCONATE 4% CLEANSER FOR DECOLONIZATION TP SCH (22:00)
[2018-11-15 23:11] LABS: ALBUMIN 1.9 g/dl (3.4-5.0); ANION GAP 17 MMOL/L (8-16); BILIRUBIN,TOTAL 0.6 mg/dL (0.2-1); BLOOD UREA NITROGEN 62 mg/dL (7-18); CHLORIDE 109 mmol/L (98-107); CO2 13 mmol/L (21-32); CREATININE 3.2 mg/dL (0.55-1.3); GLUCOSE,RANDOM 270 mg/dL (74-106); PHOSPHOROUS 5.6 mg/dL (2.5-4.9); POTASSIUM 4.8 mmol/L (3.5-5.1); SGOT/AST 889 U/L (15-37); SGPT/ALT 258 U/L (13-61); SODIUM 138 mmol/L (136-145); TOT PROT 4.6 g/dl (6.4-8.2)
[2018-11-15 23:12] LABS: ALK PHOS 107 U/L (45-117)
[2018-11-15 23:14] LABS: CALCIUM 6.5 mg/dL (8.5-10.1)
[2018-11-16] MEDS: CLINDAMYCIN 600MG PREMIX IVPB 600 MG/50 ML BAG IVPB SCH ×3 (01:13→18:43)
[2018-11-16] MEDS: methylPREDNISolone NA SUCC 40 MG/1 ML VIAL IVPUSH SCH ×3 (01:13→18:51)
[2018-11-16] MEDS: INSULIN SLIDING SCALE (NOVOLOG) 1 VIAL SQ SCH ×3 (02:15→12:47)
[2018-11-16 06:22] LABS: BASO % 0.2 % (0-2.0); HEMATOCRIT 31.1 % (32.4-45.2); HEMOGLOBIN 9.9 GM/dL (10.7-15.3); LYMPH % 7.8 % (8-40); MCH 29.3 pg (25.7-33.7); MEAN CELL VOLUME 91.5 fl (80-96); MEAN PLT VOLUME 8.6 fl (7.5-11.1); MONO % 1.5 % (3.8-10.2); NEUT % 90.5 % (42.8-82.8); PLATELET COUNT 127 K/MM3 (134-434); RDW 15.7 % (11.6-15.6); WHITE BLOOD COUNT 17.5 K/mm3 (4.0-10.0)
[2018-11-16 06:56] LABS: ALBUMIN 1.9 g/dl (3.4-5.0); ALK PHOS 98 U/L (45-117); ANION GAP 13 MMOL/L (8-16); BILIRUBIN,TOTAL 0.6 mg/dL (0.2-1); BLOOD UREA NITROGEN 65 mg/dL (7-18); CHLORIDE 104 mmol/L (98-107); CO2 18 mmol/L (21-32); CREATININE 3.6 mg/dL (0.55-1.3); MAGNESIUM 1.9 mg/dL (1.8-2.4); PHOSPHOROUS 6.7 mg/dL (2.5-4.9); POTASSIUM 5.4 mmol/L (3.5-5.1); SGOT/AST 682 U/L (15-37); SGPT/ALT 234 U/L (13-61); SODIUM 135 mmol/L (136-145)
--- NOTE | 2018-11-16 07:00 | PN ---
Physical Exam: SUBJECTIVE: Patient seen and examined. Patient intubated/sedated. OBJECTIVE: Vital Signs Period Temp Pulse Resp BP Sys/Loera Pulse Ox Last 24 Hr 92.0 F-98.2 F 35-85 18-58 73-168/29-68 97-100 GENERAL: Sedated HEAD: No signs of trauma, normocephalic, atraumatic EYES: B/l pupil dilated and fixed ENT: ETT and NGT in place LUNGS: B/l coarse breath sounds HEART: Regular rate w/ irregularly irregular rhythm; no murmurs appreciated, peripheral pulses normal and equal bilaterally ABDOMEN: Soft, distended, normoactive bowel sounds EXTREMITIES: cool to touch, no open wounds NEUROLOGICAL: pupils fixed and dilated b/l, gag reflex absent, negative oculocephalic reflex SKIN: cool, dry Active Medications Generic Name Dose Route Start Last Admin Trade Name Freq PRN Reason Stop Dose Admin Chlorhexidine Gluconate 1 applic 11/15/18 22:00 11/15/18 23:37 Hibiclens For Decolonization - TP 1 applic HS YOAN Administration Heparin Sodium (Porcine) 1,000 unit 11/15/18 12:36 Heparin - IVPUSH PRN PRN Heparin Heparin Sodium (Porcine) 5,000 unit 11/15/18 12:36 Heparin - IVPUSH PRN PRN Heparin Propofol 1,000,000 mcg in 100 mls @ 2.722 mls/hr 11/15/18 06:30 11/15/18 23: 34 Diprivan - IVPB 9 mcg/kg/min TITR YOAN 4.899 mls/hr Administration Protocol 5 MCG/KG/MIN Norepinephrine Bitartrate 8, 500 mls @ 10.2 mls/hr 11/15/18 06:45 11/15/18 19 :00 000 mcg/ Dextrose IV 0.12 mcg/kg/min ASDIR YOAN 40.82 mls/hr Titration Protocol 0.03 MCG/KG/MIN Clindamycin Phosphate 600 mg in 50 mls @ 100 mls/hr 11/15/18 10:00 11/16/18 01:13 Cleocin 600 Mg Premix Ivpb - IVPB 100 mls/hr Q8H-IV YOAN Administration Protocol Cefepime HCl 2 gm/ Dextrose 100 mls @ 100 mls/hr 11/15/18 09:00 11/15/18 12: 45 IVPB 100 mls/hr Q24H YOAN Administration Protocol Sodium Bicarbonate 150 meq/ 1,150 mls @ 125 mls/hr 11/15/18 10:30 11/15/18 23 :29 Dextrose IV 125 mls/hr Q9H YOAN Administration Heparin Sodium (Porcine) 25, 500 mls @ 20 mls/hr 11/15/18 12:45 11/16/18 00: 47 000 unit/ Sodium Chloride IV 900 unit/hr TITR YOAN 18 mls/hr Titration Protocol 1,000 UNIT/HR Fentanyl 500 mcg/ Sodium 100 mls @ 1 mls/hr 11/15/18 16:15 11/15/18 12:00 Chloride IVPB 20 mcg/hr TITR YOAN 4 mls/hr Titration Protocol 5 MCG/HR Insulin Aspart 1 vial 11/15/18 06:30 11/16/18 02:15 Novolog Vial Sliding Scale - SQ 10 units Q6H YOAN Administration Protocol Methylprednisolone Sodium Succinate 40 mg 11/15/18 10:30 11/16/18 01:13 Solu-Medrol - IVPUSH 40 mg Q8H-IV YOAN Administration Mupirocin 1 applic 11/15/18 10:00 11/15/18 23:30 Bactroban Ointment (For Decolonization) - NS 11/20/18 09:59 1 applic BID YOAN Administration Pantoprazole Sodium 40 mg 11/15/18 10:15 11/15/18 23:32 Protonix Iv IVPUSH 40 mg BID YOAN Administration ASSESSMENT/PLAN: The patient is an 83F w/ a history of CAD s/p stent x2, HTN, A-fib (plavix/ASA) , COPD (3L NC at home), HLD, and colitis who presented s/p cardiac arrest by EMS. The patient was found to be in severe metabolic and respiratory acidosis likely 2/2 septic shock and hypercapnic/hypoxic respiratory failure. Neuro Sedation -Propofol, fentanyl --Sedation held this AM to assess neurologic function -Maintain RASS -5 for TTM HEENT ETT - 11/15/2018 NGT - 11/15/2018 CV s/p Cardiac Arrest NSTEMI -Targeted Temperature Management performed for 24 hours (completed at 0730 today ), now passively warming -Trop I s/p peak, 36 this AM -Heparin gtt -ASA 325mg PO daily Bradycardia -Likely 2/2 NSTEMI/sepsis -s/p 1mg Atropine 11/15/2018 -Resolved A-fib -rate controlled -Heparin gtt -hold beta humphrey Severe tricuspid regurg. with pulm. HTN -ECHO pending Hypotension -Levophed, titrated to MAP > 65 Hx HTN -Anti-hypertensives held CAD -Heparin gtt PULM Hypercapnic/hypoxic respiratory failure -s/p intubation -PRVC 400/24/10/100% --Patient apnic w/o rate PNA/pulm infiltrates -Urine Legionella antigen -Sputum cx GI Transaminitis -Likely 2/2 cardiac arrest Nutrition -NGT in place -Will initiate TF as pressors weaned Johnson in place -Strict I/O Acute on chronic CKD -Likely 2/2 hypoperfusion -Continue IVF resuscitation Hypocalcemia -Repleted Lactic acidosis -Resolving (5.9 from 6.9) -Cont. bicarb gtt in D5 HEME Anemia -Hgb 9.9, no need to transfuse at this time, will CTM DVT Ppx -Hep gtt ID Likely sepsis 2/2 aspiration PNA/CAP -Will start Vanc/Cefepime/Clinda -Blood, Urine, Sputum Cx pending ENDO T2DM -ISS LTD ETT - 11/15/2018 NGT - 11/15/2018 RIJ - 11/16/2018 Dispo: Patient will continue to require ICU level of care. Prognosis guarded Code Status: DNR -Spoke w/ Daughter, who is listed as health care proxy. Per the daughter, she states that she wishes for her mother to be DNR. --Conversation witnessed by Ce Hunter RN & Maria D Ashton RN. Visit type - Emergency Visit Emergency Visit: Yes ED Registration Date: 11/15/18 Care time: The patient presented to the Emergency Department on the above date and was hospitalized for further evaluation of their emergent condition. - New Patient This patient is new to me today: No - Critical Care Critical Care patient: Yes Total Critical Care Time (in minutes): 40 Critical Care Statement: The care of this patient involved high complexity decision making to prevent further life threatening deterioration of the patient 's condition and/or to evaluate & treat vital organ system(s) failure or risk of failure.
[2018-11-16 07:05] LABS: ARTERIAL BLD GAS O2 SATURATION 95.3 % (90-98.9); ARTERIAL BLOOD GAS PO2 83.6 mmHg (68-100); ARTERIAL BLOOD GAS pH 7.27 (7.35-7.45)
[2018-11-16 07:16] LABS: GLUCOSE,RANDOM 353 mg/dL (74-106)
[2018-11-16 07:18] LABS: CALCIUM 6.5 mg/dL (8.5-10.1)
[2018-11-16] MEDS ORDERED: CALCIUM GLUCONATE 10% - 1,000 MG/10 ML VIAL IVPB ONE (08:45)
[2018-11-16] MEDS: SODIUM BICARBONATE 8.4% - 150 MEQ in DEXTROSE 5%-WATER - 1,000 ML IV SCH (09:00)
[2018-11-16] MEDS: CEFEPIME 2 GM in DEXTROSE 5%-WATER 100 ML IVPB SCH (10:00)
[2018-11-16] MEDS ORDERED: AZITHROMYCIN IVPB 500 MG in DEXTROSE 5%-WATER - 250 ML IVPB SCH (10:00)
[2018-11-16] MEDS: PANTOPRAZOLE SODIUM 40 MG VIAL IVPUSH SCH (10:00)
[2018-11-16] MEDS: MUPIROCIN 2% TOPICAL OINTMENT FOR DECOLONIZATION NS SCH (10:07)
[2018-11-16 10:59] LABS: URINE APPEARANCE SLCLOUDY; URINE BILIRUBIN NEGATIVE (<2.0 mg/dL); URINE COLOR DKYELLOW; URINE GLUCOSE (UA) 1+ (NEGATIVE); URINE KETONE NEGATIVE (NEGATIVE); URINE LEUK ESTERASE NEGATIVE (NEGATIVE); URINE NITRITE NEGATIVE (NEGATIVE); URINE PROTEIN 2+ (NEGATIVE); URINE UROBILINOGEN NEGATIVE mg/dL (0.2-1.0)
[2018-11-16 11:14] LABS: EPI CELLS RARE /HPF (FEW); URINE BACTERIA MANY /hpf (NONE SEEN)
--- NOTE | 2018-11-16 11:48 | PN ---
Teaching Attending Note Name of Resident: Piotr Garcia ATTENDING PHYSICIAN STATEMENT I saw and evaluated the patient. I reviewed the resident's note and discussed the case with the resident. I agree with the resident's findings and plan as documented. SUBJECTIVE: Pt seen and examined in the ICU. Remains intubated, sedated on levophed gtt. Completed hypothermia protocol. Episode of bradycardia overnight, given atropine. Pt made DNR overnight, family considering withdrawal of care. OBJECTIVE: Vital Signs Period Temp Pulse Resp BP Sys/Loera Pulse Ox Last 24 Hr 92.0 F-96.1 F 35-83 14-32 73-168/29-68 97-100 Intake & Output 11/13/18 11/14/18 11/15/18 11/16/18 23:59 23:59 23:59 23:59 Intake Total 1112.6 678 Output Total 10 100 Balance 1102.6 578 Weight 79.384 kg Gen: intubated, sedated Heart: RRR Lung: scattered rhonchi Abd: soft, nontender Ext: + edema CBC, BMP 11/16/18 05:30 11/16/18 05:30 Active Medications Chlorhexidine Gluconate (Hibiclens For Decolonization -) 1 applic TP HS YOAN Last Admin: 11/15/18 23:37 Dose: 1 applic Heparin Sodium (Porcine) (Heparin -) 1,000 unit IVPUSH PRN PRN PRN Reason: Heparin Heparin Sodium (Porcine) (Heparin -) 5,000 unit IVPUSH PRN PRN PRN Reason: Heparin Propofol (Diprivan -) 1,000,000 mcg in 100 mls @ 2.722 mls/hr IVPB TITR YOAN; Protocol Last Admin: 11/15/18 23:34 Dose: 9 mcg/kg/min, 4.899 mls/hr Norepinephrine Bitartrate 8, (000 mcg/ Dextrose) 500 mls @ 10.2 mls/hr IV ASDIR YOAN; Protocol Last Titration: 11/15/18 19:00 Dose: 0.12 mcg/kg/min, 40.82 mls/hr Clindamycin Phosphate (Cleocin 600 Mg Premix Ivpb -) 600 mg in 50 mls @ 100 mls /hr IVPB Q8H-IV YOAN; Protocol Last Admin: 11/16/18 10:00 Dose: 100 mls/hr Cefepime HCl 2 gm/ Dextrose 100 mls @ 100 mls/hr IVPB Q24H YOAN; Protocol Last Admin: 11/16/18 10:00 Dose: 100 mls/hr Sodium Bicarbonate 150 meq/ (Dextrose) 1,150 mls @ 125 mls/hr IV Q9H YOAN Last Admin: 11/16/18 09:00 Dose: 125 mls/hr Heparin Sodium (Porcine) 25, (000 unit/ Sodium Chloride) 500 mls @ 20 mls/hr IV TITR YOAN; Protocol Last Titration: 11/16/18 07:45 Dose: 750 unit/hr, 15 mls/hr Fentanyl 500 mcg/ Sodium (Chloride) 100 mls @ 1 mls/hr IVPB TITR YOAN; Protocol Last Titration: 11/15/18 12:00 Dose: 20 mcg/hr, 4 mls/hr Insulin Aspart (Novolog Vial Sliding Scale -) 1 vial SQ Q6H YOAN; Protocol Last Admin: 11/16/18 07:12 Dose: 10 units Methylprednisolone Sodium Succinate (Solu-Medrol -) 40 mg IVPUSH Q8H-IV YOAN Last Admin: 11/16/18 10:04 Dose: 40 mg Mupirocin (Bactroban Ointment (For Decolonization) -) 1 applic NS BID [facility] Stop: 11/20/18 09:59 Last Admin: 11/16/18 10:07 Dose: 1 applic Pantoprazole Sodium (Protonix Iv) 40 mg IVPUSH BID [facility] Last Admin: 11/16/18 10:00 Dose: 40 mg ASSESSMENT AND PLAN: s/p Cardiopulmonary Arrest Acute on Chronic Hypoxic Respiratory Failure CAD Acute NSTEMI Pneumonia Septic vs Cardiogenic Shock Acute on Chronic Renal Failure Lactic Acidosis/Severe Metabolic Acidosis Elevated LFTs likely Ischemic Injury r/o Anoxic Encephalopathy Atrial Fibrillation Pulmonary HTN HTN COPD DM Hyperlipidemia - continue antibiotics - f/u cultures - completed hypothermia protocol - echocardiogram - ASA, plavix - continue anticoagulation - adjusted vent settings - inhaled bronchodilators - empiric medrol for history of COPD - bicarb gtt - monitor urine output, creatinine - trend lactate, LFTs - continue volume assist control - minimize sedation to assess mental status - DVT/GI prophylaxis - prognosis guarded - ICU monitoring - continue discussions regarding goals of care critical care time spent in reviewing chart, evaluating patient and formulating plan 35 min
--- NOTE | 2018-11-16 12:08 | PROC ---
Central Line Insertion Indication: Sepsis, Vasopressor Risks and Benefits Explained: Yes Consent on Chart: Yes Central Line: Triple Lumen Catheter Anesthesia: 1% Lidocaine Sterile Technique: Yes Ultrasound Guided Assistance: Yes Position: Right Internal Jugular Post Insertion: Yes: Bilateral Breath Sounds, Chest X-Ray Ordered Sterile Dressing Applied: Yes
--- NOTE | 2018-11-16 12:54 | ECHO ---
Version: 1 Name: CHINO DEAN Exam: Adult Echocardiogram Study Date: 11/16/2018, 9:42 AM Age: 83 Years MMode/2D Measurements & Calculations IVSd: 1.36 cm LVIDs: 3.5 cm LVIDd: 4.3 cm LVPWd: 1.35 cm LVOT diam: 1.94 cm Ao root diam: 2.50 cm LA dimension: 5.0 cm Doppler Measurements & Calculations Lat Peak E' Yovani: 3.1 cm/sec Med Peak E' Yovani: 3.3 cm/sec Ao max P.4 mmHg Ao V2 max: 318.5 cm/sec TR max yovani: 336.6 cm/sec TR max P.4 mmHg Procedure The study was technically difficult with many images being suboptimal in quality. Left Ventricle There is mild concentric left ventricular hypertrophy. Left ventricular systolic function is mild to moderately reduced. There is mild to moderate global hypokinesis of the left ventricle. Regional wal l motion abnormalities cannot be excluded due to limited visualization. Right Ventricle The right ventricle is not well visualized. Atria The left atrium is severely dilated. The right atrium is severely dilated. Mitral Valve There is moderate mitral valve thickening. There is no mitral valve stenosis. There is mild to moder ate mitral regurgitation. Tricuspid Valve There is mild to moderate tricuspid valve thickening. There is no tricuspid stenosis. There is sever e tricuspid regurgitation. Right ventricular systolic pressure is elevated at 50-60mmHg. Aortic Valve The aortic valve is not well visualized. There is moderate to severe aortic valve thickening. There is moderate to severe aortic sclerosis.;. Hemodynamically significant valvular aortic stenosis cannot b e excluded. Incomplete AV stenosis evaluation . Cannot r/o severe or ceirical . Consider repeating s tudy witch continuity equation calculation and RITO measurement. AV Max pressure gradient around 64 mmHg. Trace aortic regurgitation. Great Vessels The aortic root is normal size. Summary Statements There is mild concentric left ventricular hypertrophy. Left ventricular systolic function is mild to moderately reduced. There is severe tricuspid regurgitation. Right ventricular systolic pressure is elevated at 50-60mmHg. The aortic valve is not well visualized. There is moderate to severe aortic valve thickening. There is moderate to severe aortic sclerosis.; The left atrium is severely dilated. The right atrium is severely dilated. The study was technically difficult with many images being suboptimal in quality.Regional wall motio n abnormalities cannot be excluded due to limited visualization. Hemodynamically significant valvular aortic stenosis cannot be excluded. Incomplete AV stenosis evaluation . Cannot r/o severe Incomplete AV stenosis evaluation . Cannot r/o severe or ceirical . Consider repeating study witch continuity equation calculation and RITO measurement. AV Max pressure gradient around 64 mmHg. MD Melvin Peng 11/16/2018, 12:53 PM Ordering Physician: Chalino Lang Performed By: Jennifer Orona
[2018-11-16] MEDS: NOREPINEPHRINE BITARTRATE 8,000 MCG in DEXTROSE 5%-WATER - 492 ML IV SCH (13:00)
[2018-11-16] MEDS: HEPARIN - 25,000 UNIT in SODIUM CHLORIDE 495 ML IV SCH (13:20)
--- NOTE | 2018-11-16 14:06 | PN ---
Progress Note (short form) - Note Progress Note: remains unresponsive pressors bicarb drip intubated oliguric Vital Signs Period Temp Pulse Resp BP Sys/Loera Pulse Ox Last 24 Hr 92.0 F-96.4 F 35-92 14-32 73-168/29-68 97-100 cor-rrr lungs decreased bs at bases abd soft,nt ext no edema hunt minimal urine output CBC, BMP 11/16/18 05:30 Microbiology 11/15/18 02:30 Blood - Peripheral Venous Blood Culture - Preliminary Pending Organism 11/15/18 10:50 Urine - Urine - Catheterized Urine Culture - Final NO GROWTH OBTAINED 11/15/18 02:30 Blood - Peripheral Venous Blood Culture - Preliminary NO GROWTH OBTAINED AFTER 24 HOURS, INCUBATION TO CONTINUE FOR 4 DAYS. Laboratory Tests 11/16/18 05:30 Random Vancomycin 11.8 L cxray- cardiomegalyl, effusions imp/reccd s/p cardiopulmonary arrest multiorgan failure oliguric renal failure sepsis pneumonia uti DKA acute OK anoxia ampicillin allergy intubated unresponsive continue cefepime/clindamycin redose vancomycin now DNR palliative care consult called overall prognosis is grim over 40 minutes spent in the care of this critically ill ICU patient Problem List - Problems (1) Cardiopulmonary arrest Code(s): I46.9 - CARDIAC ARREST, CAUSE UNSPECIFIED (2) Multiorgan failure Code(s): DYJ9055 - (3) Sepsis Code(s): A41.9 - SEPSIS, UNSPECIFIED ORGANISM (4) Myocardial infarction acute Code(s): I21.9 - ACUTE MYOCARDIAL INFARCTION, UNSPECIFIED
[2018-11-16] MEDS ORDERED: VANCOMYCIN 1 GRAM (PRE-DOCKED) 1,000 MG/250 ML BAG IVPB ONE (14:07)
--- NOTE | 2018-11-16 15:28 | PN ---
Progress Note, Physician History of Present Illness: Pt seen and examined at bedside. She remains in the ICU. Pt remains non responsive. - Current Medication List Current Medications: Active Medications Chlorhexidine Gluconate (Hibiclens For Decolonization -) 1 applic TP HS YOAN Last Admin: 11/15/18 23:37 Dose: 1 applic Heparin Sodium (Porcine) (Heparin -) 1,000 unit IVPUSH PRN PRN PRN Reason: Heparin Heparin Sodium (Porcine) (Heparin -) 5,000 unit IVPUSH PRN PRN PRN Reason: Heparin Propofol (Diprivan -) 1,000,000 mcg in 100 mls @ 2.722 mls/hr IVPB TITR YOAN; Protocol Last Titration: 11/16/18 10:00 Dose: 0 mcg/kg/min, 0 mls/hr Norepinephrine Bitartrate 8, (000 mcg/ Dextrose) 500 mls @ 10.2 mls/hr IV ASDIR YOAN; Protocol Last Admin: 11/16/18 13:00 Dose: 0.08 mcg/kg/min, 30 mls/hr Clindamycin Phosphate (Cleocin 600 Mg Premix Ivpb -) 600 mg in 50 mls @ 100 mls /hr IVPB Q8H-IV YOAN; Protocol Last Admin: 11/16/18 10:00 Dose: 100 mls/hr Cefepime HCl 2 gm/ Dextrose 100 mls @ 100 mls/hr IVPB Q24H YOAN; Protocol Last Admin: 11/16/18 10:00 Dose: 100 mls/hr Sodium Bicarbonate 150 meq/ (Dextrose) 1,150 mls @ 125 mls/hr IV Q9H YOAN Last Admin: 11/16/18 09:00 Dose: 125 mls/hr Heparin Sodium (Porcine) 25, (000 unit/ Sodium Chloride) 500 mls @ 20 mls/hr IV TITR YOAN; Protocol Last Admin: 11/16/18 13:20 Dose: 750 unit/hr, 15 mls/hr Fentanyl 500 mcg/ Sodium (Chloride) 100 mls @ 1 mls/hr IVPB TITR YOAN; Protocol Last Titration: 11/15/18 12:00 Dose: 20 mcg/hr, 4 mls/hr Vancomycin HCl (Vancomycin (Pre-Docked)) 1,000 mg in 250 mls @ 166.667 mls/hr IVPB ONCE ONE; Protocol Stop: 11/16/18 15:36 Insulin Aspart (Novolog Vial Sliding Scale -) 1 vial SQ Q6H [facility]; Protocol Last Admin: 11/16/18 12:47 Dose: 12 units Methylprednisolone Sodium Succinate (Solu-Medrol -) 40 mg IVPUSH Q8H-IV YOAN Last Admin: 11/16/18 10:04 Dose: 40 mg Mupirocin (Bactroban Ointment (For Decolonization) -) 1 applic NS BID [facility] Stop: 11/20/18 09:59 Last Admin: 11/16/18 10:07 Dose: 1 applic Pantoprazole Sodium (Protonix Iv) 40 mg IVPUSH BID [facility] Last Admin: 11/16/18 10:00 Dose: 40 mg - Objective Vital Signs: Vital Signs Temperature 96.4 F L 11/16/18 11:00 Pulse Rate 77 11/16/18 13:00 Respiratory Rate 24 H 11/16/18 13:35 Blood Pressure 134/56 L 11/16/18 13:00 O2 Sat by Pulse Oximetry (%) 97 11/16/18 13:00 Constitutional: Yes: Calm Eyes: Yes: Conjunctiva Clear, Other (pupils not reacting) Cardiovascular: Yes: S1, S2 Respiratory: Yes: Mechanically Ventilated Gastrointestinal: Yes: Soft Genitourinary: Yes: Johnson Present, Oliguria Musculoskeletal: Yes: Muscle Weakness Edema: No Integumentary: Yes: WNL Neurological: Yes: Lethargy Labs: CBC, BMP 11/16/18 05:30 11/16/18 12:30 INR, PTT INR 1.45 (0.83-1.09) H 11/15/18 07:46 - ....Imaging Chest X-ray: Report Reviewed Problem List - Problems (1) Acute renal failure (ARF) Code(s): N17.9 - ACUTE KIDNEY FAILURE, UNSPECIFIED (2) Cardiac arrest Code(s): I46.9 - CARDIAC ARREST, CAUSE UNSPECIFIED (3) Cardiopulmonary arrest Code(s): I46.9 - CARDIAC ARREST, CAUSE UNSPECIFIED (4) NSTEMI (non-ST elevated myocardial infarction) Code(s): I21.4 - NON-ST ELEVATION (NSTEMI) MYOCARDIAL INFARCTION (5) Pulmonary HTN Code(s): I27.20 - PULMONARY HYPERTENSION, UNSPECIFIED (6) Atrial fibrillation Code(s): I48.91 - UNSPECIFIED ATRIAL FIBRILLATION Assessment/Plan Current Medications Generic Name Dose Route Start Last Admin Trade Name Freq PRN Reason Stop Dose Admin Chlorhexidine Gluconate 1 applic 11/15/18 22:00 11/15/18 23:37 Hibiclens For Decolonization - TP 1 applic HS YOAN Administration Heparin Sodium (Porcine) 1,000 unit 11/15/18 12:36 Heparin - IVPUSH PRN PRN Heparin Heparin Sodium (Porcine) 5,000 unit 11/15/18 12:36 Heparin - IVPUSH PRN PRN Heparin Propofol 1,000,000 mcg in 100 mls @ 2.722 mls/hr 11/15/18 06:30 11/16/18 10: 00 Diprivan - IVPB 0 mcg/kg/min TITR YOAN 0 mls/hr Titration Protocol 5 MCG/KG/MIN Norepinephrine Bitartrate 8, 500 mls @ 10.2 mls/hr 11/15/18 06:45 11/16/18 13 :00 000 mcg/ Dextrose IV 0.08 mcg/kg/min ASDIR YOAN 30 mls/hr Administration Protocol 0.03 MCG/KG/MIN Clindamycin Phosphate 600 mg in 50 mls @ 100 mls/hr 11/15/18 10:00 11/16/18 10:00 Cleocin 600 Mg Premix Ivpb - IVPB 100 mls/hr Q8H-IV YOAN Administration Protocol Cefepime HCl 2 gm/ Dextrose 100 mls @ 100 mls/hr 11/15/18 09:00 11/16/18 10: 00 IVPB 100 mls/hr Q24H YOAN Administration Protocol Sodium Bicarbonate 150 meq/ 1,150 mls @ 125 mls/hr 11/15/18 10:30 11/16/18 09 :00 Dextrose IV 125 mls/hr Q9H YOAN Administration Heparin Sodium (Porcine) 25, 500 mls @ 20 mls/hr 11/15/18 12:45 11/16/18 13: 20 000 unit/ Sodium Chloride IV 750 unit/hr TITR YOAN 15 mls/hr Administration Protocol 1,000 UNIT/HR Fentanyl 500 mcg/ Sodium 100 mls @ 1 mls/hr 11/15/18 16:15 11/15/18 12:00 Chloride IVPB 20 mcg/hr TITR YOAN 4 mls/hr Titration Protocol 5 MCG/HR Vancomycin HCl 1,000 mg in 250 mls @ 166.667 mls/hr 11/16/18 14:07 Vancomycin (Pre-Docked) IVPB 11/16/18 15:36 ONCE ONE Protocol Insulin Aspart 1 vial 11/15/18 06:30 11/16/18 12:47 Novolog Vial Sliding Scale - SQ 12 units Q6H YOAN Administration Protocol Methylprednisolone Sodium Succinate 40 mg 11/15/18 10:30 11/16/18 10:04 Solu-Medrol - IVPUSH 40 mg Q8H-IV YOAN Administration Mupirocin 1 applic 11/15/18 10:00 11/16/18 10:07 Bactroban Ointment (For Decolonization) - NS 11/20/18 09:59 1 applic BID YOAN Administration Pantoprazole Sodium 40 mg 11/15/18 10:15 11/16/18 10:00 Protonix Iv IVPUSH 40 mg BID YOAN Administration Impression 1. CORTEZ 2. cardiac arrest 3. respiratory failure 4. lactic acidosis 5. metabolic acidosis 6. a-fib 7. CAD 8. shock 9. COPD 10. DM 11. HLD 12. transaminitis 13. hyperkalemia 14. hypocalcemia Plan - can continue bicarb - replace calcium - renal function is worsening - can give lasix for congestion - monitor urine output - neurology eval - discuss GOC with family - potassium to be treated medically - trend lactic acid levels - prognosis is poor - follow urine studies Dr Campos
[2018-11-16] MEDS ORDERED: SODIUM BICARBONATE 8.4% - 150 MEQ in DEXTROSE 5%-WATER - 1,000 ML IV SCH (15:29)
--- NOTE | 2018-11-16 16:52 | EKG ---
Test Reason : Blood Pressure : / mmHG Vent. Rate : 071 BPM Atrial Rate : 258 BPM P-R Int : 000 ms QRS Dur : 094 ms QT Int : 526 ms P-R-T Axes : 000 041 103 degrees QTc Int : 571 ms ATRIAL FIBRILLATION T WAVE ABNORMALITY, CONSIDER ANTERIOR ISCHEMIA PROLONGED QT ABNORMAL ECG WHEN COMPARED WITH ECG OF 15-NOV-2018 10:36, T WAVE INVERSION NOW EVIDENT IN ANTERIOR LEADS QT HAS LENGTHENED Confirmed by MOUNIKA PINA MD ([id number]) on 11/16/2018 4:52:47 PM Referred By: Confirmed By:MOUNIKA PINA MD
--- NOTE | 2018-11-16 17:00 | PN ---
Physical Exam: SUBJECTIVE: Patient seen and examined at bed side. Sedated and Intubated (s/p cardiac arrest). settings PRVC @ 24/400/70/10. On sedation vacation. On levophed. Overnight had an episode of bradycardia, was given 1 amp of Atropine and HR improved. OBJECTIVE: Vital Signs Period Temp Pulse Resp BP Sys/Loera Pulse Ox Last 24 Hr 92.0 F-96.4 F 35-119 14-24 73-168/29-76 97-100 GENERAL: The patient is sedated and intubated. HEAD: Normal with no signs of trauma. EYES: Both pupils fixed and dilated. ENT: Dry mucus membranes. NECK: No JVD LUNGS: B/L coarse breath sounds. HEART: Irregularly irregular rate, S1, S2 with systolic murmur. ABDOMEN: Soft, distended, tympanic to percussion, BS decreased. EXTREMITIES: 2+ pulses, warm, well-perfused, B/L trace lower ext edema. NEUROLOGICAL: Intubated and off sedation. No gag reflex, pupils fixed and dilated. SKIN: Warm, dry, normal turgor, no rashes or lesions noted Laboratory Results - last 24 hr 11/15/18 11/15/18 11/15/18 02:30 02:32 12:25 WBC RBC Hgb Hct MCV MCH MCHC RDW Plt Count MPV Absolute Neuts (auto) Neutrophils % Lymphocytes % Monocytes % Eosinophils % Basophils % Nucleated RBC % PTT (Actin FS) Puncture Site ABG pH ABG pCO2 at Pt Temp ABG pO2 at Pt Temp ABG HCO3 ABG O2 Sat (Measured) ABG O2 Content ABG Base Excess Reed Test O2 Delivery Device Oxygen Flow Rate Vent Mode Vent Rate PEEP Pressure Support Vent Sodium Potassium Chloride Carbon Dioxide Anion Gap BUN Creatinine Creat Clearance w eGFR POC Glucometer > [phone] Random Glucose Lactic Acid Calcium Phosphorus Magnesium Total Bilirubin AST ALT Alkaline Phosphatase Creatine Kinase Creatine Kinase Index CK-MB (CK-2) Troponin I Total Protein Albumin Urine Color Urine Appearance Urine pH Ur Specific [place] Urine Protein Urine Glucose (UA) Urine Ketones Urine Blood Urine Nitrite Urine Bilirubin Urine Urobilinogen Ur Leukocyte Esterase Urine WBC (Auto) Urine RBC (Auto) Ur Epithelial Cells Urine Bacteria Hyaline Casts Urine Yeast Random Vancomycin Antibody Identification Anti-S Antigen Identification S Antigen - NEGATIVE 11/15/18 11/15/18 11/15/18 16:33 17:50 20:30 WBC RBC Hgb Hct MCV MCH MCHC RDW Plt Count MPV Absolute Neuts (auto) Neutrophils % Lymphocytes % Monocytes % Eosinophils % Basophils % Nucleated RBC % PTT (Actin FS) 87.6 H Puncture Site ABG pH ABG pCO2 at Pt Temp ABG pO2 at Pt Temp ABG HCO3 ABG O2 Sat (Measured) ABG O2 Content ABG Base Excess Reed Test O2 Delivery Device Oxygen Flow Rate Vent Mode Vent Rate PEEP Pressure Support Vent Sodium Potassium Chloride Carbon Dioxide Anion Gap BUN Creatinine Creat Clearance w eGFR POC Glucometer [phone] Random Glucose Lactic Acid Calcium Phosphorus Magnesium Total Bilirubin AST ALT Alkaline Phosphatase Creatine Kinase Creatine Kinase Index CK-MB (CK-2) Troponin I Total Protein Albumin Urine Color [place] Urine Appearance Cloudy Urine pH 5.0 Ur Specific [place] 1.021 Urine Protein 3+ H Urine Glucose (UA) 3+ H D Urine Ketones Negative Urine Blood 1+ H Urine Nitrite Negative Urine Bilirubin Negative Urine Urobilinogen Negative Ur Leukocyte Esterase Negative Urine WBC (Auto) 15 Urine RBC (Auto) 7 Ur Epithelial Cells Rare Urine Bacteria Many Hyaline Casts 14 Urine Yeast Many Random Vancomycin Antibody Identification Antigen Identification 11/15/18 11/15/18 11/15/18 21:30 21:30 22:24 WBC RBC Hgb Hct MCV MCH MCHC RDW Plt Count MPV Absolute Neuts (auto) Neutrophils % Lymphocytes % Monocytes % Eosinophils % Basophils % Nucleated RBC % PTT (Actin FS) Puncture Site ABG pH ABG pCO2 at Pt Temp ABG pO2 at Pt Temp ABG HCO3 ABG O2 Sat (Measured) ABG O2 Content ABG Base Excess Reed Test O2 Delivery Device Oxygen Flow Rate Vent Mode Vent Rate PEEP Pressure Support Vent Sodium 138 Potassium 4.8 Chloride 109 H Carbon Dioxide 13 L Anion Gap 17 H BUN 62 H Creatinine 3.2 H Creat Clearance w eGFR 13.87 POC Glucometer [phone] Random Glucose 270 H Lactic Acid Calcium 6.5 L* Phosphorus 5.6 H Magnesium 2.0 Total Bilirubin 0.6 AST 889 H ALT 258 H Alkaline Phosphatase 107 Creatine Kinase 973 H Creatine Kinase Index 6.8 H* CK-MB (CK-2) 66.7 H Troponin I 60.60 H* Total Protein 4.6 L Albumin 1.9 L Urine Color Urine Appearance Urine pH Ur Specific [place] Urine Protein Urine Glucose (UA) Urine Ketones Urine Blood Urine Nitrite Urine Bilirubin Urine Urobilinogen Ur Leukocyte Esterase Urine WBC (Auto) Urine RBC (Auto) Ur Epithelial Cells Urine Bacteria Hyaline Casts Urine Yeast Random Vancomycin Antibody Identification Antigen Identification 11/16/18 11/16/18 11/16/18 02:03 05:30 05:30 WBC 17.5 H RBC 3.40 L Hgb 9.9 L Hct 31.1 L MCV 91.5 MCH 29.3 MCHC 32.0 RDW 15.7 H Plt Count 127 L D MPV 8.6 Absolute Neuts (auto) 15.8 H Neutrophils % 90.5 H Lymphocytes % 7.8 L Monocytes % 1.5 L Eosinophils % 0.0 D Basophils % 0.2 Nucleated RBC % 0 PTT (Actin FS) Puncture Site ABG pH ABG pCO2 at Pt Temp ABG pO2 at Pt Temp ABG HCO3 ABG O2 Sat (Measured) ABG O2 Content ABG Base Excess Reed Test O2 Delivery Device Oxygen Flow Rate Vent Mode Vent Rate PEEP Pressure Support Vent Sodium Potassium Chloride Carbon Dioxide Anion Gap BUN Creatinine Creat Clearance w eGFR POC Glucometer [phone] Random Glucose Lactic Acid Calcium Phosphorus Magnesium Total Bilirubin AST ALT Alkaline Phosphatase Creatine Kinase Creatine Kinase Index CK-MB (CK-2) Troponin I Total Protein Albumin Urine Color Urine Appearance Urine pH Ur Specific [place] Urine Protein Urine Glucose (UA) Urine Ketones Urine Blood Urine Nitrite Urine Bilirubin Urine Urobilinogen Ur Leukocyte Esterase Urine WBC (Auto) Urine RBC (Auto) Ur Epithelial Cells Urine Bacteria Hyaline Casts Urine Yeast Random Vancomycin 11.8 L Antibody Identification Antigen Identification 11/16/18 11/16/18 11/16/18 05:30 05:30 05:30 WBC RBC Hgb Hct MCV MCH MCHC RDW Plt Count MPV Absolute Neuts (auto) Neutrophils % Lymphocytes % Monocytes % Eosinophils % Basophils % Nucleated RBC % PTT (Actin FS) 120.2 H Puncture Site ABG pH ABG pCO2 at Pt Temp ABG pO2 at Pt Temp ABG HCO3 ABG O2 Sat (Measured) ABG O2 Content ABG Base Excess Reed Test O2 Delivery Device Oxygen Flow Rate Vent Mode Vent Rate PEEP Pressure Support Vent Sodium 135 L Potassium 5.4 H Chloride 104 Carbon Dioxide 18 L Anion Gap 13 BUN 65 H Creatinine 3.6 H Creat Clearance w eGFR 12.11 POC Glucometer Random Glucose 353 H* Lactic Acid 5.9 H* Calcium 6.5 L* Phosphorus 6.7 H Magnesium 1.9 Total Bilirubin 0.6 AST 682 H ALT 234 H Alkaline Phosphatase 98 Creatine Kinase Creatine Kinase Index CK-MB (CK-2) Troponin I 36.00 H* Total Protein 5.0 L Albumin 1.9 L Urine Color Urine Appearance Urine pH Ur Specific [place] Urine Protein Urine Glucose (UA) Urine Ketones Urine Blood Urine Nitrite Urine Bilirubin Urine Urobilinogen Ur Leukocyte Esterase Urine WBC (Auto) Urine RBC (Auto) Ur Epithelial Cells Urine Bacteria Hyaline Casts Urine Yeast Random Vancomycin Antibody Identification Antigen Identification 11/16/18 11/16/18 11/16/18 06:27 06:57 09:38 WBC RBC Hgb Hct MCV MCH MCHC RDW Plt Count MPV Absolute Neuts (auto) Neutrophils % Lymphocytes % Monocytes % Eosinophils % Basophils % Nucleated RBC % PTT (Actin FS) Puncture Site Right radial ABG pH 7.27 L D ABG pCO2 at Pt Temp 36.0 ABG pO2 at Pt Temp 83.6 ABG HCO3 15.8 L ABG O2 Sat (Measured) 95.3 ABG O2 Content 15.1 ABG Base Excess -10.0 L Reed Test No Result Required. O2 Delivery Device Mech vent Oxygen Flow Rate 100 Vent Mode Prvc Vent Rate 24 PEEP 10.0 Pressure Support Vent 400 Sodium Potassium Chloride Carbon Dioxide Anion Gap BUN Creatinine Creat Clearance w eGFR POC Glucometer > 400 Random Glucose Lactic Acid Calcium Phosphorus Magnesium Total Bilirubin AST ALT Alkaline Phosphatase Creatine Kinase Creatine Kinase Index CK-MB (CK-2) Troponin I Total Protein Albumin Urine Color Dkyellow Urine Appearance Slcloudy Urine pH 5.0 Ur Specific [place] 1.012 Urine Protein 2+ H Urine Glucose (UA) 1+ H D Urine Ketones Negative Urine Blood 1+ H Urine Nitrite Negative Urine Bilirubin Negative Urine Urobilinogen Negative Ur Leukocyte Esterase Negative Urine WBC (Auto) 2 Urine RBC (Auto) 4 Ur Epithelial Cells Rare Urine Bacteria Many Hyaline Casts Urine Yeast Random Vancomycin Antibody Identification Antigen Identification 11/16/18 11/16/18 12:30 12:30 WBC RBC Hgb Hct MCV MCH MCHC RDW Plt Count MPV Absolute Neuts (auto) Neutrophils % Lymphocytes % Monocytes % Eosinophils % Basophils % Nucleated RBC % PTT (Actin FS) 93.2 H Puncture Site ABG pH ABG pCO2 at Pt Temp ABG pO2 at Pt Temp ABG HCO3 ABG O2 Sat (Measured) ABG O2 Content ABG Base Excess Reed Test O2 Delivery Device Oxygen Flow Rate Vent Mode Vent Rate PEEP Pressure Support Vent Sodium Potassium Chloride Carbon Dioxide Anion Gap BUN Creatinine Creat Clearance w eGFR POC Glucometer Random Glucose 395 H* Lactic Acid Calcium Phosphorus Magnesium Total Bilirubin AST ALT Alkaline Phosphatase Creatine Kinase Creatine Kinase Index CK-MB (CK-2) Troponin I Total Protein Albumin Urine Color Urine Appearance Urine pH Ur Specific [place] Urine Protein Urine Glucose (UA) Urine Ketones Urine Blood Urine Nitrite Urine Bilirubin Urine Urobilinogen Ur Leukocyte Esterase Urine WBC (Auto) Urine RBC (Auto) Ur Epithelial Cells Urine Bacteria Hyaline Casts Urine Yeast Random Vancomycin Antibody Identification Antigen Identification Active Medications Generic Name Dose Route Start Last Admin Trade Name Freq PRN Reason Stop Dose Admin Chlorhexidine Gluconate 1 applic 11/15/18 22:00 11/15/18 23:37 Hibiclens For Decolonization - TP 1 applic HS YOAN Administration Heparin Sodium (Porcine) 1,000 unit 11/15/18 12:36 Heparin - IVPUSH PRN PRN Heparin Heparin Sodium (Porcine) 5,000 unit 11/15/18 12:36 Heparin - IVPUSH PRN PRN Heparin Propofol 1,000,000 mcg in 100 mls @ 2.722 mls/hr 11/15/18 06:30 11/16/18 10: 00 Diprivan - IVPB 0 mcg/kg/min TITR YOAN 0 mls/hr Titration Protocol 5 MCG/KG/MIN Norepinephrine Bitartrate 8, 500 mls @ 10.2 mls/hr 11/15/18 06:45 11/16/18 13 :00 000 mcg/ Dextrose IV 0.08 mcg/kg/min ASDIR YOAN 30 mls/hr Administration Protocol 0.03 MCG/KG/MIN Clindamycin Phosphate 600 mg in 50 mls @ 100 mls/hr 11/15/18 10:00 11/16/18 10:00 Cleocin 600 Mg Premix Ivpb - IVPB 100 mls/hr Q8H-IV YOAN Administration Protocol Cefepime HCl 2 gm/ Dextrose 100 mls @ 100 mls/hr 11/15/18 09:00 11/16/18 10: 00 IVPB 100 mls/hr Q24H YOAN Administration Protocol Heparin Sodium (Porcine) 25, 500 mls @ 20 mls/hr 11/15/18 12:45 12/26/18 13: 20 000 unit/ Sodium Chloride IV 750 unit/hr TITR YOAN 15 mls/hr Administration Protocol 1,000 UNIT/HR Fentanyl 500 mcg/ Sodium 100 mls @ 1 mls/hr 11/15/18 16:15 11/15/18 12:00 Chloride IVPB 20 mcg/hr TITR YOAN 4 mls/hr Titration Protocol 5 MCG/HR Sodium Bicarbonate 150 meq/ 1,150 mls @ 100 mls/hr 11/16/18 15:29 Dextrose IV Q9H YOAN Insulin Aspart 1 vial 11/15/18 06:30 11/16/18 12:47 Novolog Vial Sliding Scale - SQ 12 units Q6H YOAN Administration Protocol Methylprednisolone Sodium Succinate 40 mg 11/15/18 10:30 11/16/18 10:04 Solu-Medrol - IVPUSH 40 mg Q8H-IV YOAN Administration Mupirocin 1 applic 11/15/18 10:00 11/16/18 10:07 Bactroban Ointment (For Decolonization) - NS 11/20/18 09:59 1 applic BID YOAN Administration Pantoprazole Sodium 40 mg 11/15/18 10:15 11/16/18 10:00 Protonix Iv IVPUSH 40 mg BID YOAN Administration ASSESSMENT/PLAN: Patient is an 83 year old female with PMhx of CAD s/p stent x2, HTN, A-fib ( plavix/ASA), COPD (3L NC at home), HLD, and colitis who presented s/p cardiac arrest by EMS. # Acute hypoxic hypercapenic respiratory failure likely from aspiration pneumonia/ Bacteremia On Sedation, vacation and Intubated PRVC 18/400/70/10 IV Cefepime 2gm daily Day 2, IV Clindamycin Day 2. One dose of vanc given IV Solumedrol 40 mg Q8H Blood cultures positive urine cultures negative Urine for legionella pending Sputum cultures negative # Cardiopulmonary arrest-etiology unknown ROSC achieved after 15 mins. Hypothermia protocol initiated and completed this morning Rule out anoxic brain injury (both pupils fixed and dilated). CT head pending Echo reviewed Appreciate Cardio recommendations # Atrial fibrillation Continue IV Heparin drip. # NSTEMI COntinue IV Heparin drip. Trend trops. serial EKGs # Acute on chronic dCHF Echo reviewed. Not on Lasix-patient looks dry, low urinary output Strict I's and O's Daily weight Johnson in place Severe metabolic acidosis post cardiac arrest Continue bicarb drip in D5W @ 125 mls/hr Trend lactic acid Repeat ABG # Acute on chronic CKD with ATN likely from prolonged hypotension Urine electrolytes pending # FEN Continue IV D5W @ 125 mls.hr Electrolytes repeat and replete lytes NPO # Prophylaxis For DVT: On IV Heparin drip For GI: On IV protonix 40mg BID # Code Status: DNR. Prognosis guarded. Palliative care on board. # Dispo: Monitor in ICU Case discussed with Dr. Fortune. Visit type - Emergency Visit Emergency Visit: Yes ED Registration Date: 11/15/18 Care time: The patient presented to the Emergency Department on the above date and was hospitalized for further evaluation of their emergent condition. - New Patient This patient is new to me today: No - Critical Care Critical Care patient: Yes Total Critical Care Time (in minutes): 35 Critical Care Statement: The care of this patient involved high complexity decision making to prevent further life threatening deterioration of the patient 's condition and/or to evaluate & treat vital organ system(s) failure or risk of failure.
[2018-11-16] MEDS: FENTANYL INJECTION 500 MCG in SODIUM CHLORIDE 90 ML IVPB SCH (17:41)
[2018-11-16] MEDS ORDERED: INSULIN SLIDING SCALE (NOVOLOG) 1 VIAL SQ SCH ×2 (18:00→22:00)
--- NOTE | 2018-11-16 18:12 | CON.NEURO ---
Consult Consult Specialty:: Victor M Referred by:: ICU Reason for Consultation:: brain - History of Present Illness History of Present Illness: 83-year-old right-handed woman very sad case status post cardiac arrest Neurology was called to assist the patient from neurological point of view According to the chart the patient was resuscitated in 5 minutes Since resuscitation patient has been in the medical ICU repeat CAT scan was done today No activity or spontaneous movement no response to verbal stimuli Patient is vent dependent and not triggering the vent - History Source History Provided By: Medical Record Limitations to Obtaining History: Clinical Condition - Past Medical History Cardio/Vascular: Yes: CAD, CHF, HTN, Hyperlipdemia Pulmonary: Yes: Pneumonia Gastrointestinal: Yes: Other (colitis) Infectious Disease: Yes: Other (shingles) Endocrine: Yes: Diabetes Mellitus - Past Surgical History Past Surgical History: Yes: CABG (x2 vessel 20yrs ago, cardiac stents x2), C- Section, Hysterectomy - Alcohol/Substance Use Hx Alcohol Use: No History of Substance Use: reports: None - Smoking History Smoking history: Unknown if ever smoked Have you smoked in the past 12 months: No Aproximately how many cigarettes per day: 26 If you are a former smoker, when did you quit?: 1984 - Social History ADL: Support Services History of Recent Travel: No Home Medications - Allergies Allergies/Adverse Reactions: Allergies Allergy/AdvReac Type Severity Reaction Status Date / Time amoxicillin [Amoxicillin] AdvReac Verified 11/15/18 02:31 - Home Medications Home Medications: Ambulatory Orders Acetaminophen [Tylenol .Regular Strength -] 650 mg PO Q6H PRN #0 tablet Albuterol Sulfate Inhaler - [Ventolin HFA Inhaler -] 1 - 2 inh PO QID PRN Amlodipine Besylate 10 mg PO DAILY 06/14/18 Cholecalciferol (Vitamin D3) [Vitamin D -] 50,000 unit PO DAILY 06/14/18 Clopidogrel Bisulfate [Plavix] 75 mg PO DAILY 06/14/18 Famotidine [Pepcid] 40 mg PO DAILY 06/14/18 Fluticasone Propionate 9.9 ml NS ASDIR 06/14/18 Fluticasone/Salmeterol [Advair Hfa 115-21 Mcg Inhaler] 1 inh PO ASDIR 06/14/18 Furosemide [Lasix] 40 mg PO DAILY 06/14/18 Glipizide 5 mg PO DAILY 06/14/18 Linaclotide [Linzess] 145 mcg PO DAILY 06/14/18 Mesalamine 1.2 gm PO DAILY 06/14/18 Mesalamine [Lialda] 1.2 gm PO ASDIR 06/14/18 Metoprolol Succinate 50 mg PO DAILY 06/14/18 Rosuvastatin [Crestor -] 10 mg PO DAILY 06/14/18 metFORMIN HCL [Metformin HCl] 850 mg PO ASDIR 06/14/18 Rivaroxaban [Xarelto] 15 mg PO DAILY@1800 #30 tablet 06/16/18 oxyCODONE HCL [Roxicodone -] 5 mg PO Q4H PRN #30 tablet MDD 30mg 06/16/18 Family Disease History - Family Disease History Family History: Unable to Obtain Family Disease History: CA: Father (lung cancer), Mother (stomach cancer) Physical Exam-Neuro Vital Signs: Vital Signs Temperature 96.4 F L 11/16/18 11:00 Pulse Rate 119 H 11/16/18 17:00 Respiratory Rate 24 H 11/16/18 17:05 Blood Pressure 155/54 L 11/16/18 17:00 O2 Sat by Pulse Oximetry (%) 97 11/16/18 13:00 Constitutional: Yes: Well Nourished Labs: CBC, BMP 11/16/18 05:30 11/16/18 12:30 INR, PTT INR 1.45 (0.83-1.09) H 11/15/18 07:46 - Neuro Exam Level Of Consciousness: Yes: Comatose (patient is vent-dependent no spontaneous movement no response to verbal or painful stimuli no gaze deviation no corneal reflexes no doll's eyes no gag reflex no pulling to pain in 4 extremities decreased tone all over) Imaging - Results Cat Scan: Image Reviewed Problem List - Problems (1) Cardiac arrest Assessment/Plan: status post cardiac arrest Anoxic brain damage extensive Neuro imaging with evidence of diffuse cerebral edema consistent with anoxic brain damage NEUROLOGICALLY PATIENT IS BRAIN cOMFORT cARE Code(s): I46.9 - CARDIAC ARREST, CAUSE UNSPECIFIED
[2018-11-16 18:23] VITALS: BP 107/47; PULSE 114; TEMP 96.6
--- NOTE | 2018-11-16 18:47 | PN ---
Teaching Attending Note Name of Resident: Zohra David ATTENDING PHYSICIAN STATEMENT I saw and evaluated the patient. I reviewed the resident's note and discussed the case with the resident. I agree with the resident's findings and plan as documented. SUBJECTIVE: unable to obtain OBJECTIVE: Gen: obtunded PERRLA: bilateral pupils fixed and dilated, no gag reflex Pulm: intubated and sedated, no w/r/r anteriorly CV: irreg irreg, tachycardia, 2/6 CHARY Abd: +bs, s/nt/nd Ext: no c/c/e CBC, BMP 11/16/18 05:30 Plan -patient presented after acute cardiac arrest -resuscitated after 15 minutes -needed atropine overnight for bradycardia -with septic shock -respiratory supported with mechanical ventilation -bicarb gtt for acidemia -ID following, on cefepime and clindamycin -levophed for BP support -heparin gtt for NSTEMI -troponins trending down but still severely elevated -neurology consult appreciated -CT scan head reviewed -neurology states patient is brain -will d/w family GOC, comfort measures and palliative wean 42 minutes spent in critical care time with this patient Problem List - Problems (1) Septic shock Code(s): A41.9 - SEPSIS, UNSPECIFIED ORGANISM; R65.21 - SEVERE SEPSIS WITH SEPTIC SHOCK (2) Cardiopulmonary arrest Code(s): I46.9 - CARDIAC ARREST, CAUSE UNSPECIFIED (3) Lactic acidemia Code(s): E87.2 - ACIDOSIS (4) Acute renal failure (ARF) Code(s): N17.9 - ACUTE KIDNEY FAILURE, UNSPECIFIED (5) Acute respiratory failure Code(s): J96.00 - ACUTE RESPIRATORY FAILURE, UNSP W HYPOXIA OR HYPERCAPNIA (6) NSTEMI (non-ST elevated myocardial infarction) Code(s): I21.4 - NON-ST ELEVATION (NSTEMI) MYOCARDIAL INFARCTION (7) Atrial fibrillation Code(s): I48.91 - UNSPECIFIED ATRIAL FIBRILLATION (8) CAD (coronary artery disease) Code(s): I25.10 - ATHSCL HEART DISEASE OF [place] CORONARY ARTERY W/O ANG PCTRS Qualifiers: Coronary Disease-Associated Artery/Lesion type: unspecified vessel or lesion type [place] vs. transplanted heart: ute heart Associated angina: without angina Qualified Code(s): I25.10 - Atherosclerotic heart disease of [place] coronary artery without angina pectoris (9) CKD (chronic kidney disease) Code(s): N18.9 - CHRONIC KIDNEY DISEASE, UNSPECIFIED (10) Diabetes Code(s): E11.9 - TYPE 2 DIABETES MELLITUS WITHOUT COMPLICATIONS
[2018-11-16] MEDS ORDERED: morphine CARPU-JECT 4 MG/1 ML DISP.SYRIN IVPUSH ONE (19:51)
[2018-11-16] MEDS ORDERED: morphine SULFATE 4 MG/ML VIAL IVPUSH ONE (19:51)
[2018-11-16] MEDS ORDERED: MORPHINE 100 MG in SODIUM CHLORIDE 98 ML IVPB SCH (20:00)
--- NOTE | 2018-11-16 21:06 | HOSP ---
Subjective - Review of Symptoms Events since last encounter: Patient's daughter decided to proceed with terminal weaning of her mother, Lenora Ashford. I explained to her of her mother's medical condition, current treatment and prognosis and she understood them. I also explained the necessary paperwork and process of weaning to her and she expressed understanding and gave consent to proceed. Paperwork filled out. Will withdraw the patient from medications including pressor support and ventilators. Physical Examination Vital Signs: Vital Signs Temperature 96.6 F L 11/16/18 18:00 Pulse Rate 114 H 11/16/18 18:00 Respiratory Rate 24 H 11/16/18 19:03 Blood Pressure 107/47 L 11/16/18 18:00 O2 Sat by Pulse Oximetry (%) 97 11/16/18 13:00 Labs: CBC, BMP 11/16/18 05:30 Visit type - Emergency Visit Emergency Visit: No - New Patient This patient is new to me today: No - Critical Care Critical Care patient: Yes Total Critical Care Time (in minutes): 35 Critical Care Statement: The care of this patient involved high complexity decision making to prevent further life threatening deterioration of the patient 's condition and/or to evaluate & treat vital organ system(s) failure or risk of failure.
--- NOTE | 2018-11-16 21:17 | HOSP ---
Subjective - Review of Symptoms Events since last encounter: Noted by RN that patient has . On exam, no heart sounds or breath sounds were noted on auscultation. Pupils were fixed and dilated without pupillary light reflex. Patient was pronounced on 11/16/2018 at 09:10pm. Family was present/notified. Condolences were offered. The organ donor network was notified and case was declined. Discharge summary and certificate will be deferred to the primary team. Chalino Lang MD Physical Examination Vital Signs: Vital Signs Temperature 96.6 F L 11/16/18 18:00 Pulse Rate 114 H 11/16/18 18:00 Respiratory Rate 24 H 11/16/18 19:03 Blood Pressure 107/47 L 11/16/18 18:00 O2 Sat by Pulse Oximetry (%) 97 11/16/18 13:00 Labs: CBC, BMP 11/16/18 05:30 Visit type - Emergency Visit Emergency Visit: No - New Patient This patient is new to me today: No - Critical Care Critical Care patient: Yes Total Critical Care Time (in minutes): 35 Critical Care Statement: The care of this patient involved high complexity decision making to prevent further life threatening deterioration of the patient 's condition and/or to evaluate & treat vital organ system(s) failure or risk of failure.
--- NOTE | 2018-11-18 09:41 | EKG ---
Test Reason : Blood Pressure : / mmHG Vent. Rate : 080 BPM Atrial Rate : 117 BPM P-R Int : 000 ms QRS Dur : 098 ms QT Int : 442 ms P-R-T Axes : 000 -05 107 degrees QTc Int : 509 ms ATRIAL FIBRILLATION ABNORMAL ECG WHEN COMPARED WITH ECG OF 15-NOV-2018 02:33, QT HAS LENGTHENED Confirmed by SEAN MONTANA MD ([id number]) on 11/18/2018 9:41:26 AM Referred By: Confirmed By:SEAN MONTANA MD
== END 2018-11-16 22:10 | disposition expired | DRG 871 ==
LOC: JER 02:19 → JERBED 04:52 → JICU 06:46
PROVIDERS: ADMIT Internal Medicine; ATTEND Internal Medicine
PROC: 5A12012 Performance of Cardiac Output, Single, Manual (ICD-10-PCS; principal; 2018-11-15)
PROC: 0BH17EZ Insertion of Endotracheal Airway into Trachea, Via Natural or Artificial Opening (ICD-10-PCS; 2018-11-15)
PROC: 5A1935Z Respiratory Ventilation, Less than 24 Consecutive Hours (ICD-10-PCS; 2018-11-15)
PROC: 06HN33Z Insertion of Infusion Device into Left Femoral Vein, Percutaneous Approach (ICD-10-PCS; 2018-11-15)
PROC: B51CZZA Fluoroscopy of Left Lower Extremity Veins, Guidance (ICD-10-PCS; 2018-11-15)
PROC: 05HM33Z Insertion of Infusion Device into Right Internal Jugular Vein, Percutaneous Approach (ICD-10-PCS; 2018-11-16)
PROC: B513ZZA Fluoroscopy of Right Jugular Veins, Guidance (ICD-10-PCS; 2018-11-16)
DX: A41.9 Sepsis, unspecified organism (principal); J18.9 Pneumonia, unspecified organism; E11.10 Type 2 diabetes mellitus with ketoacidosis without coma; R65.21 Severe sepsis with septic shock; K72.00 Acute and subacute hepatic failure without coma; J96.21 Acute and chronic respiratory failure with hypoxia; J96.22 Acute and chronic respiratory failure with hypercapnia; I21.A1 Myocardial infarction type 2; N17.0 Acute kidney failure with tubular necrosis; I50.33 Acute on chronic diastolic (congestive) heart failure; G93.1 Anoxic brain damage, not elsewhere classified; I13.0 Hypertensive heart and chronic kidney disease with heart failure and stage 1 through stage 4 chronic kidney disease, or unspecified chronic kidney disease; J44.1 Chronic obstructive pulmonary disease with (acute) exacerbation; E87.4 Mixed disorder of acid-base balance; Z99.11 Dependence on respirator [ventilator] status; I48.2 Chronic atrial fibrillation; I46.9 Cardiac arrest, cause unspecified; N18.3 Chronic kidney disease, stage 3 (moderate); E11.22 Type 2 diabetes mellitus with diabetic chronic kidney disease; I36.1 Nonrheumatic tricuspid (valve) insufficiency; I27.20 Pulmonary hypertension, unspecified; E87.5 Hyperkalemia; E66.9 Obesity, unspecified; Z68.32 Body mass index [BMI] 32.0-32.9, adult; E78.5 Hyperlipidemia, unspecified; Z79.84 Long term (current) use of oral hypoglycemic drugs; D64.9 Anemia, unspecified; Z87.891 Personal history of nicotine dependence; I25.10 Atherosclerotic heart disease of native coronary artery without angina pectoris; Z95.1 Presence of aortocoronary bypass graft; Z90.710 Acquired absence of both cervix and uterus; R74.0 Nonspecific elevation of levels of transaminase and lactic acid dehydrogenase [LDH]; I95.9 Hypotension, unspecified; Z88.0 Allergy status to penicillin; Z99.81 Dependence on supplemental oxygen; E83.51 Hypocalcemia; Z66 Do not resuscitate
CPT/HCPCS: 36415; 36600; 70450-TC; 71045-TC-FY; 71250-TC; 72125-TC; 74176-TC; 76775-TC; 76856-TC; 80048; 80053; 81003; 81015; 82009; 82375; 82550; 82553; 82803; 82947; 82962; 83050; 83605; 83735; 83880; 84100; 84484; 85025; 85610; 85730; 86850; 86870; 86900; 86901; 86902; 87040; 87070; 87076; 87086; 87205; 93005; 93010; 93306-TC; 94002; 99285-25; G0480; J0131; J1644; J7030